=== PATIENT | female | born 1945 | race Caucasian/White ===

== ENCOUNTER → 2016-12-05 | Outpatient (CLI) | payer MEDICARE, OTHER ==
[~2016-12-05] MED LIST: ALBU8.5H2 IH; AMOX-355 PO; ENAL5TAB PO; ESTR2TAB4 PO; LEVO750T6 PO; PRED10TA PO; PRV20T GT; SERT100T8 PO
--- OUTSIDE RECORDS SUMMARY | 2016-12-05 13:00 | XMS REPORT | Continuity of Care Document ---
Author Author [facility] Organization [facility] Address Unknown Phone Unavailable Care Team Providers Care Rehabilitation Teacher Name Role Phone GEORGE OROSCO MD PCP Insurance Providers Payer Name Policy Number Subscriber Name Relationship Wps Medicare [id number] Mahad Gregg 18 Self / Same As Patient Enter Insurance Name [id number] Mahad Gregg 18 Self / Same As Patient Advance Directives Directive Response Recorded Date/Time Advance Directives No 03/31/15 3:21am Health Care Power of Thresher [place] No 03/31/15 3:21am Organ Donor No 03/31/15 3:21am Resuscitation Status Full Code 03/31/15 3:21am Problems Medical Problems Problem Onset Date Status Chest wall pain Unknown Active Acute bronchitis Unknown Active Chest wall pain Unknown Active Medications Medication Dose Route Sig Days/Qty Instructions Order Date Discontinued Date Status Enalapril Maleate 5 Mg PO DAILY 01/02/13 Active Estradiol 2 Mg PO DAILY 01/02/13 Active Pravastatin Sod 20 Mg GT DAILY 01/02/13 Active Prednisone 10 Mg PO DAILY 03/31/15 Active Sertraline Hcl 100 Mg PO 03/31/15 Active Amoxicillin/Clavulanate Potassium 1 Tab PO 03/31/15 Active Levofloxacin 750 Mg PO DAILY 4 Qty 03/31/15 Active Albuterol 1-4 Puff IH RESPIRATORY EVERY FOUR HOURS PRN SHORTNESS OF BREATH 1 Qty 1 PUFFS 03/31/15 Active Social History Social History Problem Response Recorded Date/Time Alcohol Use Occasionally Uses 03/31/2015 3:21am Recreational Drug Use No 03/31/2015 3:21am Recent Foreign Travel No 03/31/2015 3:06am Recent Infectious Disease Exposure No 03/31/2015 3:06am Hospitalization with Isolation Denies 03/31/2015 3:06am Smoking Status Current Everyday Smoker 03/31/2015 3:21am Query Response Start Date Stop Date Smoking Status Current Everyday Smoker Hospital Discharge Instructions No hospital discharge instructions. Plan of Care No plan of care. Functional Status No functional status results. Allergies, Adverse Reactions, Alerts Allergen Type Severity Reaction Status Last Updated No Known Drug Allergies Active 01/06/13 Immunizations Name Given Type Date of Influenza Vaccine 09/08/12 Historical Vital Signs Acute Vital Signs Vital Response Date/Time Temperature (Fahrenheit) 97.0 degrees F (97.6 - 99.5) Temperature (Calculated Celsius) 36.10680 degrees C (36.4 - 37.5) Temperature Source Temporal Pulse Rate (adult) 66 bpm (60 - 90) Respiratory Rate 20 bpm (12 - 24) O2 Sat by Pulse Oximetry 92 % (88 - 100) Blood Pressure 184/98 mm Hg Pain Pain Intensity 8 Height (Feet) 5 feet Height (Inches) 7 inches Height (Calculated Centimeters) 170.911021 cm Weight (Pounds) 168 pounds Weight (Calculated Kilograms) 76.849754 kilograms Calculated BMI 26.31 Results Laboratory Results Test Name Result Units Flags Reference Collection Date/Time Result Date/ Time Comments White Blood Count 5.5 10^3/uL 4.3-11.0 03/31/2015 3:37am 03/31/2015 3: 50am Red Blood Count 4.55 10^6/uL 4.35-5.85 03/31/2015 3:37am 03/31/2015 3: 50am Hemoglobin 12.4 G/DL 11.5-16.0 03/31/2015 3:37am 03/31/2015 3:50am Hematocrit 39 % 35-52 03/31/2015 3:37am 03/31/2015 3:50am Mean Corpuscular Volume 85 FL 80-99 03/31/2015 3:37am 03/31/2015 3: 50am Mean Corpuscular Hemoglobin 27 PG 25-34 03/31/2015 3:37am 03/31/2015 3: 50am Mean Corpuscular Hemoglobin Concent 32 G/DL 32-36 03/31/2015 3:37 3:50am Red Cell Distribution Width 15.1 % H 10.0-14.5 03/31/2015 3:2014 3:50am Platelet Count 275 10^3/uL 130-400 03/31/2015 3:3703/31/2015 3:50am Mean Platelet Volume 11.0 FL H 7.4-10.4 03/31/2015 3:3703/31/2015 3: 50am Neutrophils (%) (Auto) 83 % H 42-75 03/31/2015 3:3703/31/2015 3:50am Lymphocytes (%) (Auto) 10 % L 12-44 03/31/2015 3:03/31/2015 3:50am Monocytes (%) (Auto) 7 % 0-12 03/31/2015 3:03/31/2015 3:50am Eosinophils (%) (Auto) 0 % 0-10 03/31/2015 3:03/31/2015 3:50am Basophils (%) (Auto) 0 % 0-10 03/31/2015 3:03/31/2015 3:50am Neutrophils # (Auto) 4.5 X 10^3 1.8-7.8 03/31/2015 3:03/31/2015 3: 50am Lymphocytes # (Auto) 0.5 X 10^3 L 1.0-4.0 03/31/2015 3:03/31/2015 3: 50am Monocytes # (Auto) 0.4 X 10^3 0.0-1.0 03/31/2015 3:3703/31/2015 3: 50am Eosinophils # (Auto) 0.0 10^3/uL 0.0-0.3 03/31/2015 3:3703/31/2015 3 :50am Basophils # (Auto) 0.0 10^3/uL 0.0-0.1 03/31/2015 3:03/31/2015 3: 50am D-Dimer 0.50 UG/ML H 0.00-0.49 03/31/2015 3:3703/31/2015 4:52am Sodium Level 141 MMOL/L 135-145 03/31/2015 3:3703/31/2015 4:08am Potassium Level 4.3 MMOL/L 3.6-5.0 03/31/2015 3:3703/31/2015 4:08am Chloride Level 109 MMOL/L H 98-107 03/31/2015 3:3703/31/2015 4:08am Carbon Dioxide Level 21 MMOL/L 21-32 03/31/2015 3:3703/31/2015 4: 08am Blood Urea Nitrogen 21 MG/DL H 7-18 03/31/2015 3:3703/31/2015 4:08am Creatinine 0.76 MG/DL 0.60-1.30 03/31/2015 3:3703/31/2015 4:08am BUN/Creatinine Ratio 03/31/2015 3:3703/31/2015 4:08am Estimat Glomerular Filtration Rate > 60 03/31/2015 3:372014 4:08am GFR INTERPRETIVE DATA UNITS FOR ESTIMATED GFR (eGFR): mL/min/1.73 M2 REFERENCE RANGE FOR ESTIMATED GFR (eGFR) eGFR NORMAL eGFR >60 MODERATELY DECREASED eGFR 30-59 SEVERLY DECREASED eGFR 15-29 KIDNEY FAILURE <15 (OR DIALYSIS) Glucose Level 109 MG/DL H 70-105 03/31/2015 3:3703/31/2015 4:08am Calcium Level 9.5 MG/DL 8.5-10.1 03/31/2015 3:3703/31/2015 4:08am Total Bilirubin 0.3 MG/DL 0.1-1.0 03/31/2015 3:3703/31/2015 4:08am Alkaline Phosphatase 80 U/L 40-136 03/31/2015 3:3703/31/2015 4:08am Aspartate Amino Transf (AST/SGOT) 16 U/L 5-34 03/31/2015 3:372014 4:08am Alanine Aminotransferase (ALT/SGPT) 11 U/L 0-55 03/31/2015 3:3703/31 4:08am Total Protein 6.7 G/DL 6.4-8.2 03/31/2015 3:3703/31/2015 4:08am Albumin 3.9 G/DL 3.2-4.5 03/31/2015 3:37am 03/31/2015 4:08am Lipase 24 U/L 8-78 03/31/2015 3:37am 03/31/2015 4:08am C-Reactive Protein High Sensitivity 1.07 MG/DL H 0.00-0.50 03/31/2015 3: 37am 03/31/2015 4:08am Procedures No known history of procedures. Encounters Encounter Location Date/Time Departed Emergency [facility] 03/31/15 3:06am Recent Diagnosis
--- NOTE | 2016-12-06 09:33 | STRESS TEST ---
PROCEDURE PHYSICIAN: MAGDI CANALES EXERCISE ECHOCARDIOGRAM STRESS TEST REPORT DATE OF PROCEDURE: 12/05/2016 REFERRING PHYSICIAN: Dr. Mario. INDICATION: Chest pain. Baseline heart rate is 61, baseline blood pressure: 156/85. Baseline EKG: Sinus rhythm with no ischemic changes. SUMMARY: The patient started exercising with a baseline heart rate, blood pressure and EKG mentioned above. She was able to exercise for a total 7 minutes 15 seconds on standard Martin protocol, achieving maximum heart rate of 140, which is 95% of maximum expected heart rate. With peak exercise level, EKG was showing no ischemic changes. Blood pressure at peak was 218/84. During recovery, heart rate and blood pressure returned to baseline. EKG returned to baseline. Echocardiographic images were acquired and reviewed in the parasternal long axis parasternal short axis, apical 4 chamber and apical 2 chamber views. Review of the images showed normal left ventricular size with normal contractility with no ischemic changes. CONCLUSION: 1. Good exercise tolerance a total 7 minutes 15 seconds on standard Martin protocol. Total of 10.1 METs, achieving 95% of maximum expected heart rate. 2. Severe hypertensive response to exercise, returned to baseline during recovery. 3. Minimal nondiagnostic EKG changes with exercise. Returned to baseline during recovery. 4. Normal echocardiographic images at rest and with peak stress images with no ischemic changes. Job ID: [id number] Dictated Date: 12/05/2016 17:34:19 Continuous Improvement Coordinator Date: 12/06/2016 09:28:34 / ted
--- NOTE | 2016-12-06 09:39 | ECHOCARDIOGRAPHY REPORT ---
PROCEDURE PHYSICIAN: MAGDI CANALES DATE OF PROCEDURE: 12/05/2016 TWO DIMENSIONAL ECHOCARDIOGRAM REPORT PRIMARY PHYSICIAN: OTHER PHYSICIAN: REFERRING PHYSICIAN: Dr. Mario ORDERING PHYSICIAN: INDICATION FOR THE PROCEDURE: Chest pain. MEASUREMENTS DERIVED VALUES LV DIAMETER (LAX) NORMALS NORMALS Diastolic 4.4 (3.6-5.2) Eject. Fract. 60% (60%+/-6%) Systolic (2.3-3.9) Diastolic Vol. % Shortening (0.22-0.42) Systolic Vol. Aortic Root IVS THICKNESS Diastolic 1 (0.6-1.1) LVPW THICKNESS Diastolic 1 (0.6-1.1) LA DIAMETER Systolic 3.8 (2.1-3.7) FINDINGS: 1. Technical quality is good. 2. The left ventricle is normal in size with normal contractility. Systolic function appeared to be normal. Estimated ejection fraction 60%. 3. The left atrium is normal in size. No clot or thrombus were seen within the left atrium. 4. The right atrium and right ventricle are normal in size. No clot or thrombus were seen within the right side. 5. Mitral valve is normal in morphology with mild mitral regurgitation noted by color Doppler flow. No mitral valve prolapse. No mitral valve stenosis. 6. Aortic valve is calcified, not well visualized. There is no significant aortic valve stenosis or regurgitation seen. 7. Tricuspid valve is normal in morphology with mild tricuspid regurgitation noted by color Doppler flow. Doppler across tricuspid valve estimated pulmonary artery pressure of 14+ right atrial pressure. 8. Pulmonic valve is functioning normally. 9. No pericardial effusion. IN CONCLUSION: 1. Normal left ventricular size and systolic function. Estimated ejection fraction 60%. Diastolic dysfunction is suggested by Doppler. 2. Mild mitral and tricuspid regurgitation. 3. Estimated pulmonary artery pressure of 25 mmHg. Job ID: [id number] Dictated Date: 12/05/2016 17:27:55 Mental Telepathist Date: 12/06/2016 09:36:08 / geoff
== END ==
LOC: CARD 12:57
PROVIDERS: ATTEND Internal Medicine Cardiovascular Disease
DX: R07.9 Chest pain, unspecified (principal); E78.5 Hyperlipidemia, unspecified; I08.0 Rheumatic disorders of both mitral and aortic valves; Z72.0 Tobacco use
CPT/HCPCS: 93306; 93351

== ENCOUNTER → 2017-08-27 | Outpatient (CLI) | payer MEDICARE, OTHER ==
--- NOTE | 2017-08-27 15:41 | Diagnostic Imaging Report ---
PROCEDURE: MRI right joint lower extremity without contrast. TECHNIQUE: Multiplanar, multisequence non contrast-enhanced MRI of the right lower extremity was accomplished. INDICATION: Lateral ankle pain. COMPARISONS: None available. FINDINGS: TENDONS: Achilles is normal. 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 Its distal insertion on the base of the fifth metatarsal is normal. The peroneus longus is normal. There is tenosynovitis of the posterior tibialis tendon which remains intact. Flexor hallucis longus and flexor digitorum longus are normal. The anterior tibialis, extensor hallucis longus and extensor digitorum longus tendons are normal where visualized. LIGAMENTS: The distal anterior and posterior tibiofibular ligaments are intact. Anterior talofibular, calcaneofibular and posterior talofibular ligaments are normal. The medial deltoid ligamentous complex is intact. BONES AND CARTILAGE: No osteochondral lesion of the talar dome. There is amorphous bone marrow edema within the lateral and plantar aspect of the talar neck in the dorsal aspect of the calcaneus. There is also mild edema in the proximal aspect of the cuboid. Articular cartilage in the tibiotalar and posterior subtalar joints is preserved. SOFT TISSUES: No joint effusion. Mild synovitis throughout the ankle is noted. 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 No abnormal mass effect on the tarsal tunnel. IMPRESSION: 1. 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 Clinical correlation for hindfoot pain and sensation of instability. 2. Mild edema within the osseous structures surrounding the sinus tarsi is likely reactive in nature. However, this could be due to stress injury, although this is unlikely given the distribution. 3. 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 4. Tenosynovitis of the posterior tibialis posterior to the distal tibia. No tear of the posterior tibialis. Dictated by: Dictated on workstation # [id number]
== END ==
LOC: RAD 10:45
PROVIDERS: ATTEND Internal Medicine
DX: M65.871 Other synovitis and tenosynovitis, right ankle and foot (principal); S96.811A Strain of other specified muscles and tendons at ankle and foot level, right foot, initial encounter; X58.XXXA Exposure to other specified factors, initial encounter; Y99.8 Other external cause status
CPT/HCPCS: 73721

== ENCOUNTER → 2019-02-12 | Outpatient (CLI) | payer MEDICARE, OTHER ==
--- NOTE | 2019-02-12 14:21 | Diagnostic Imaging Report ---
PROCEDURE: US Venous Lower Ext Andriy. TECHNIQUE: Multiple real-time grayscale images were obtained over the lower extremities in various projections, bilaterally. Additional duplex Doppler and color Doppler images were also obtained. INDICATION: Lower extremity edema. EXAMINATIONS: Both grayscale and color Doppler imaging of the deep veins of the lower extremities were performed with waveform analysis. FINDINGS: There is no intraluminal filling defect. Normal continuous flow is seen throughout the deep venous systems of both legs, and there is normal response to augmentation. The deep veins compress normally. IMPRESSION: No ultrasound evidence of deep venous thrombosis in either lower extremity. Dictated by: Dictated on workstation # [id number]
== END ==
LOC: RAD 13:39
PROVIDERS: ATTEND Internal Medicine
DX: G47.33 Obstructive sleep apnea (adult) (pediatric) (principal); R60.0 Localized edema
CPT/HCPCS: 93970

== ENCOUNTER 2019-06-20 13:10 | Emergency (ER) | payer OTHER, MEDICARE ==
[~2019-06-20] VITALS: Ht 170.2 cm; Wt 77.1 kg
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
[2019-06-20] MEDS ORDERED: CYCL10TA9 PO (14:56)
[2019-06-20] MEDS ORDERED: TRAM-42 PO (14:56)
[2019-06-20 15:01] VITALS: BP 125/70
== END 2019-06-20 15:01 | disposition home or self-care (01) ==
LOC: EDUNIT# 13:10 → ER 13:12
DX: S16.1XXA Strain of muscle, fascia and tendon at neck level, initial encounter (principal); J44.9 Chronic obstructive pulmonary disease, unspecified; I10 Essential (primary) hypertension; F32.9 Major depressive disorder, single episode, unspecified; R40.2142 Coma scale, eyes open, spontaneous, at arrival to emergency department; R40.2252 Coma scale, best verbal response, oriented, at arrival to emergency department; R40.2362 Coma scale, best motor response, obeys commands, at arrival to emergency department; Z90.710 Acquired absence of both cervix and uterus; Z90.89 Acquired absence of other organs; Z82.49 Family history of ischemic heart disease and other diseases of the circulatory system; V49.60XA Unspecified car occupant injured in collision with unspecified motor vehicles in traffic accident, initial encounter
CPT/HCPCS: 72125

== ENCOUNTER → 2019-07-01 | Outpatient (CLI) | payer MEDICARE, OTHER ==
[~2019-07-01] MED LIST changes: +CYCL10TA9 PO; +TRAM-42 PO
== END ==
LOC: CARD 13:47
PROVIDERS: ATTEND Internal Medicine Cardiovascular Disease
DX: I08.1 Rheumatic disorders of both mitral and tricuspid valves (principal); I65.29 Occlusion and stenosis of unspecified carotid artery; I10 Essential (primary) hypertension; E78.2 Mixed hyperlipidemia; Z72.0 Tobacco use
CPT/HCPCS: 93306

== ENCOUNTER 2019-12-21 05:45 | Outpatient (CLI) | payer MEDICARE, OTHER ==
[~2019-12-21] VITALS: Ht 170.2 cm; Wt 75.0 kg
[2019-12-21] MEDS ORDERED: ESTR1TAB24 PO (12:00)
[2019-12-21] MEDS ORDERED: LISI-552 PO (12:00)
[2019-12-21] MEDS ORDERED: CARV6.252 PO (12:00)
[2019-12-21] MEDS ORDERED: NITR-65 PO (12:00)
[2019-12-21] MEDS ORDERED: OXYB5TAB3 PO (12:00)
[2019-12-21] MEDS ORDERED: AMLO10TA7 PO (12:00)
[2019-12-21] MEDS ORDERED: ATOR10TA66 PO (12:00)
[2019-12-21] MEDS ORDERED: SERT100T8 PO (12:00)
[2019-12-21] MEDS ORDERED: COLE1TAB PO (12:00)
[2019-12-21] MEDS ORDERED: OMEP40CA27 PO (12:00)
== END 2019-12-21 12:05 | disposition home or self-care (01) ==
LOC: PREOP 05:45
PROVIDERS: ATTEND Specialist
DX: Z01.818 Encounter for other preprocedural examination (principal)

== ENCOUNTER 2019-12-25 07:57 | Day surgery (SDC) | payer MEDICARE, OTHER ==
[~2019-12-25] VITALS: Ht 170.2 cm; Wt 75.0 kg
[~2019-12-25 07:57] MED LIST changes: +AMLO10TA7 PO; +ATOR10TA66 PO; +CARV6.252 PO; +COLE1TAB PO; +ESTR1TAB24 PO; +LISI-552 PO; +NITR-65 PO; +OMEP40CA27 PO; +OXYB-52 PO
[2019-12-25] MEDS ORDERED: MOXIFLOXACIN OPHTH SOLN 5 MG/ML 0.3 ML SYRINGE OP ONE (08:15)
[2019-12-25] MEDS ORDERED: TIMOLOL MALEATE 0.5% 5 ML (TIMOPTIC) BTL OU PRN (08:15)
[2019-12-25] MEDS ORDERED: POVIDONE (BETADINE) OPHTH SOLN 5% 30 ML OP ONE (08:15)
[2019-12-25] MEDS ORDERED: LIDOCAINE PF 1% 2 ML VIAL IR PRN (08:15)
[2019-12-25] MEDS: TETRACAINE 0.5% OPHTH SOLN 4 ML BTL (SINGLE DOSE ONLY) OU PRN ×4 (08:19→08:47)
[2019-12-25] MEDS: PHENYLEPHRINE 10% OPHTH (NEO-SYN) 5 ML BTL OU SCH ×3 (08:30→08:47)
[2019-12-25] MEDS: CYCLOPENTOLATE 1% (CYCLOGYL) 2 ML DROPS OP SCH ×3 (08:30→08:47)
[2019-12-25] MEDS ORDERED: MIDAZOLAM 2 MG/2 ML (VERSED) VIAL ONE (09:22)
--- NOTE | 2019-12-25 09:23 | Ophthalmologist Pre-Op Note ---
Pre-Operative Progress Note H&P Reviewed The H&P was reviewed, patient examined and no changes noted. Date H&P Reviewed: Dec 25, 2019 Time H&P Reviewed: 09:23 Pre-Op Dx Cataract, Left Eye YADIRA TANNER MD Dec 25, 2019 09:23
[2019-12-25] MEDS ORDERED: acetaZOLAMIDE ER 500 MG CAP (DIAMOX SEQUELS) PO ONE (09:30)
--- NOTE | 2019-12-25 09:45 | Ophthalmology Operative Report ---
Cataract removal/placement IOL PREOPERATIVE DIAGNOSIS: Cataract Left Eye POSTOPERATIVE DIAGNOSIS: Cataract Left Eye PROCEDURE: Cataract removal and placement of posterior chamber implant, left eye SURGEON: Tyrell Tanner ANESTHESIA: Topical with sedation COMPLICATIONS: None ESTIMATED BLOOD LOSS: Minimal DESCRIPTION OF PROCEDURE: After proper informed consent was obtained, the patient, a 74 female, was taken to the Operating Room and the left eye was anesthetized with tetracaine. The left eye was then prepped and draped in the usual manner. A wire lid speculum was placed. A paracentesis was made at the left hand position. Preservative free lidocaine was injected into the anterior chamber followed by viscoelastic. A clear corneal incision was made in the temporal position. A capsulorrhexis was preformed and the central nuclear and cortical material were removed. The posterior capsule was polished and an Hermelindo 19.5 AU00T0 was placed into the capsular bag. The residual viscoelastic was aspirated and balanced saline solution was injected into the anterior chamber. Moxifloxacin was injected into the anterior chamber. The wound was checked and found to be water tight. The patient tolerated the procedure well without complications. TYRELL TANNER MD Dec 25, 2019 09:45
[2019-12-25 09:56] VITALS: BP 143/68
== END 2019-12-25 09:55 | disposition home or self-care (01) ==
LOC: SDC 07:57
PROVIDERS: ATTEND Specialist
DX: H25.12 Age-related nuclear cataract, left eye (principal); I10 Essential (primary) hypertension; E78.5 Hyperlipidemia, unspecified; F17.200 Nicotine dependence, unspecified, uncomplicated; M19.90 Unspecified osteoarthritis, unspecified site; E78.00 Pure hypercholesterolemia, unspecified; Z79.899 Other long term (current) drug therapy; Z90.89 Acquired absence of other organs; Z88.1 Allergy status to other antibiotic agents; Z90.710 Acquired absence of both cervix and uterus; Z80.1 Family history of malignant neoplasm of trachea, bronchus and lung

== ENCOUNTER 2020-01-01 07:30 | Day surgery (SDC) | payer MEDICARE, OTHER ==
[~2020-01-01] VITALS: Ht 170.2 cm; Wt 75.0 kg
[2020-01-01 07:43] VITALS: BP 147/83
[2020-01-01] MEDS: TETRACAINE 0.5% OPHTH SOLN 4 ML BTL (SINGLE DOSE ONLY) OU PRN ×4 (07:43→08:08)
[2020-01-01] MEDS ORDERED: LIDOCAINE PF 1% 2 ML VIAL IR PRN (07:45)
[2020-01-01] MEDS ORDERED: TIMOLOL MALEATE 0.5% 5 ML (TIMOPTIC) BTL OU PRN (07:45)
[2020-01-01] MEDS ORDERED: POVIDONE (BETADINE) OPHTH SOLN 5% 30 ML OP ONE (07:45)
[2020-01-01] MEDS: PHENYLEPHRINE 10% OPHTH (NEO-SYN) 5 ML BTL OU SCH ×3 (07:53→08:08)
[2020-01-01] MEDS: CYCLOPENTOLATE 1% (CYCLOGYL) 2 ML DROPS OP SCH ×3 (07:53→08:08)
[2020-01-01] MEDS ORDERED: MIDAZOLAM 2 MG/2 ML (VERSED) VIAL ONE (08:39)
--- NOTE | 2020-01-01 08:58 | Ophthalmology Operative Report ---
Cataract removal/placement IOL PREOPERATIVE DIAGNOSIS: Cataract Right Eye POSTOPERATIVE DIAGNOSIS: Cataract Right Eye PROCEDURE: Cataract removal and placement of posterior chamber implant, right eye SURGEON: Tyrell Tanner ANESTHESIA: Topical with sedation COMPLICATIONS: None ESTIMATED BLOOD LOSS: Minimal DESCRIPTION OF PROCEDURE: After proper informed consent was obtained, the patient, a 74 female, was taken to the Operating Room and the right eye was anesthetized with tetracaine. The right eye was then prepped and draped in the usual manner. A wire lid speculum was placed. A paracentesis was made at the left hand position. Preservative free lidocaine was injected into the anterior chamber followed by viscoelastic. A clear corneal incision was made in the temporal position. A capsulorrhexis was preformed and the central nuclear and cortical material were removed. The posterior capsule was polished and Hermelindo 20.5 AU00T0 IOL was placed into the capsular bag. The residual viscoelastic was aspirated and balanced saline solution was injected into the anterior chamber. The wound was checked and found to be water tight. The patient tolerated the procedure well without complications. TYRELL TANNER MD Jan 01, 2020 08:58
--- NOTE | 2020-01-01 08:58 | Ophthalmologist Pre-Op Note ---
Pre-Operative Progress Note H&P Reviewed The H&P was reviewed, patient examined and no changes noted. Date H&P Reviewed: Jan 01, 2020 Time H&P Reviewed: 08:25 Pre-Op Dx Cataract, Right Eye YADIRA TANNER MD Jan 01, 2020 08:58
[2020-01-01] MEDS ORDERED: acetaZOLAMIDE ER 500 MG CAP (DIAMOX SEQUELS) PO ONE (09:00)
[2020-01-01 09:05] VITALS: BP 139/65
--- NOTE | 2020-01-01 11:34 | Anesthesia-General Post-Op ---
MAC Patient Condition Mental Status/LOC: Same as Preop Cardiovascular: Satisfactory Nausea/Vomiting: Absent Respiratory: Satisfactory Pain: Controlled Complications: Absent Post Op Complications Complications None Follow Up Care/Instructions Patient Instructions None needed. Anesthesiology Discharge Order Discharge Order Patient was seen after the procedure and she was doing well, no complaints, stable vital signs, no apparent adverse anesthesia problems. RADHA DELGADO DO Jan 01, 2020 11:34
== END 2020-01-01 09:05 | disposition home or self-care (01) ==
LOC: SDC 07:30
PROVIDERS: ATTEND Specialist
DX: H25.11 Age-related nuclear cataract, right eye (principal); M19.90 Unspecified osteoarthritis, unspecified site; E78.5 Hyperlipidemia, unspecified; E78.00 Pure hypercholesterolemia, unspecified; I10 Essential (primary) hypertension; Z88.1 Allergy status to other antibiotic agents; Z79.899 Other long term (current) drug therapy; Z90.89 Acquired absence of other organs; Z80.1 Family history of malignant neoplasm of trachea, bronchus and lung

== ENCOUNTER → 2020-03-22 | Outpatient (CLI) | payer MEDICARE ==
--- NOTE | 2020-03-22 12:42 | Diagnostic Imaging Report ---
INDICATION: Routine screening. COMPARISON: 09/07/2014 and 08/31/2013. TECHNIQUE: 2D and 3D bilateral screening mammography was performed with CAD. FINDINGS: Both breasts are heterogeneously dense, limiting the sensitivity of mammography. Scattered benign-appearing calcifications are identified bilaterally. No dominant mass or malignant appearing microcalcifications are seen. The axillae are unremarkable. IMPRESSION: No mammographic features suspicious for malignancy are identified. ACR BI-RADS Category 2: Benign findings. Result letter will be mailed to the patient. Note: At least 10% of breast cancer is not imaged by mammography. Dictated by: Dictated on workstation # [id number]
== END ==
LOC: RAD 09:59
PROVIDERS: ATTEND Internal Medicine
DX: Z12.31 Encounter for screening mammogram for malignant neoplasm of breast (principal)
CPT/HCPCS: 77063; 77067

== ENCOUNTER 2020-06-13 13:45 | Outpatient (RCR) | payer MEDICARE ==
[2020-04-12 14:59] LABS: BASOPHILS % (AUTO) 0 % (0-10); EOSINOPHILS % (AUTO) 1 % (0-10); HEMATOCRIT 33 % (35-52); HEMOGLOBIN 10.8 G/DL (11.5-16.0); LYMPHOCYTES # (AUTO) 0.7 X 10^3 (1.0-4.0); LYMPHOCYTES % (AUTO) 39 % (12-44); MEAN CORPUSCULAR HEMOGLOBIN 27 PG (25-34); MEAN CORPUSCULAR HGB CONC 32 G/DL (32-36); MEAN CORPUSCULAR VOLUME 85 FL (80-99); MONOCYTES # (AUTO) 0.5 X 10^3 (0.0-1.0); MONOCYTES % (AUTO) 27 % (0-12); NEUTROPHILS # (AUTO) 0.6 X 10^3 (1.8-7.8); NEUTROPHILS % (AUTO) 34 % (42-75); PLATELET COUNT 200 10^3/uL (130-400); WHITE BLOOD COUNT 1.8 10^3/uL (4.3-11.0)
[2020-04-20 10:32] LABS: ANISOCYTOSIS SLIGHT; BAND NEUTROPHILS 0 %; BASOPHILS % (MANUAL) 0 %; ELLIPT/OVALOCYTES SLIGHT; EOSINOPHILS % (MANUAL) 0 %; LYMPHOCYTES % (MANUAL) 45 %; MONOCYTES % (MANUAL) 21 %; NEUTROPHILS % (MANUAL) 34 %
[2020-04-25 10:25] LABS: BASOPHILS % (AUTO) 0 % (0-10); EOSINOPHILS % (AUTO) 1 % (0-10); HEMATOCRIT 34 % (35-52); HEMOGLOBIN 10.9 G/DL (11.5-16.0); LYMPHOCYTES # (AUTO) 0.7 X 10^3 (1.0-4.0); LYMPHOCYTES % (AUTO) 37 % (12-44); MEAN CORPUSCULAR HEMOGLOBIN 27 PG (25-34); MEAN CORPUSCULAR HGB CONC 32 G/DL (32-36); MEAN CORPUSCULAR VOLUME 85 FL (80-99); MEAN PLATELET VOLUME 9.9 FL (7.4-10.4); MONOCYTES # (AUTO) 0.6 X 10^3 (0.0-1.0); MONOCYTES % (AUTO) 29 % (0-12); NEUTROPHILS # (AUTO) 0.7 X 10^3 (1.8-7.8); NEUTROPHILS % (AUTO) 34 % (42-75); PLATELET COUNT 221 10^3/uL (130-400)
[2020-04-25 10:47] LABS: ALANINE AMINOTRANSFERASE 9 U/L (0-55); ALBUMIN 3.9 GM/DL (3.2-4.5); ALKALINE PHOSPHATASE 77 U/L (40-136); BILIRUBIN,TOTAL 0.6 MG/DL (0.1-1.0); BUN/CREATININE RATIO 21; CALCIUM 9.4 MG/DL (8.5-10.1); CARBON DIOXIDE 25 MMOL/L (21-32); CHLORIDE 108 MMOL/L (98-107); CREATININE SERUM 0.81 MG/DL (0.60-1.30); GFR ESTIMATED > 60; GLUCOSE 92 MG/DL (70-105); POTASSIUM 4.6 MMOL/L (3.6-5.0); SODIUM 141 MMOL/L (135-145); TOTAL PROTEIN 7.1 GM/DL (6.4-8.2)
[2020-05-23 15:03] LABS: BASOPHILS % (AUTO) 0 % (0-10); EOSINOPHILS % (AUTO) 1 % (0-10); HEMATOCRIT 34 % (35-52); HEMOGLOBIN 10.9 G/DL (11.5-16.0); LYMPHOCYTES # (AUTO) 0.9 X 10^3 (1.0-4.0); LYMPHOCYTES % (AUTO) 43 % (12-44); MEAN CORPUSCULAR HEMOGLOBIN 27 PG (25-34); MEAN CORPUSCULAR HGB CONC 32 G/DL (32-36); MEAN CORPUSCULAR VOLUME 84 FL (80-99); MEAN PLATELET VOLUME 10.2 FL (7.4-10.4); MONOCYTES # (AUTO) 0.6 X 10^3 (0.0-1.0); MONOCYTES % (AUTO) 27 % (0-12); NEUTROPHILS # (AUTO) 0.6 X 10^3 (1.8-7.8); NEUTROPHILS % (AUTO) 29 % (42-75); PLATELET COUNT 232 10^3/uL (130-400); WHITE BLOOD COUNT 2.2 10^3/uL (4.3-11.0)
[2020-05-23 15:36] LABS: ALANINE AMINOTRANSFERASE 11 U/L (0-55); ALBUMIN 3.9 GM/DL (3.2-4.5); ALKALINE PHOSPHATASE 89 U/L (40-136); BILIRUBIN,TOTAL 0.5 MG/DL (0.1-1.0); BUN/CREATININE RATIO 22; CALCIUM 9.4 MG/DL (8.5-10.1); CARBON DIOXIDE 25 MMOL/L (21-32); CHLORIDE 107 MMOL/L (98-107); CREATININE SERUM 0.85 MG/DL (0.60-1.30); GFR ESTIMATED > 60; GLUCOSE 93 MG/DL (70-105); POTASSIUM 3.9 MMOL/L (3.6-5.0); SODIUM 140 MMOL/L (135-145); TOTAL PROTEIN 7.4 GM/DL (6.4-8.2)
[2020-06-01 11:02] LABS: ABSOLUTE RETIC # 30 10e9/L (24-90); BASOPHILS % (AUTO) 0 % (0-10); EOSINOPHILS % (AUTO) 1 % (0-10); HEMATOCRIT 32 % (35-52); HEMOGLOBIN 10.5 G/DL (11.5-16.0); LYMPHOCYTES # (AUTO) 0.8 X 10^3 (1.0-4.0); LYMPHOCYTES % (AUTO) 35 % (12-44); MEAN CORPUSCULAR HEMOGLOBIN 27 PG (25-34); MEAN CORPUSCULAR HGB CONC 33 G/DL (32-36); MEAN CORPUSCULAR VOLUME 84 FL (80-99); MEAN PLATELET VOLUME 10.1 FL (7.4-10.4); MONOCYTES # (AUTO) 0.6 X 10^3 (0.0-1.0); MONOCYTES % (AUTO) 26 % (0-12); NEUTROPHILS # (AUTO) 0.9 X 10^3 (1.8-7.8); NEUTROPHILS % (AUTO) 38 % (42-75); PLATELET COUNT 240 10^3/uL (130-400); RETICULOCYTE % 0.77 % (0.50-2.40); WHITE BLOOD COUNT 2.3 10^3/uL (4.3-11.0)
[2020-06-01 11:27] LABS: ANISOCYTOSIS SLIGHT; EOSINOPHILS % (MANUAL) 1 %; LYMPHOCYTES % (MANUAL) 37 %; MONOCYTES % (MANUAL) 21 %; NEUTROPHILS % (MANUAL) 41 %; POIKILOCYTOSIS SLIGHT; SPHEROCYTES SLIGHT
== END 2020-07-11 | disposition home or self-care (01) ==
LOC: ONC 13:45
PROVIDERS: ATTEND Internal Medicine Hematology & Oncology
DX: D72.819 Decreased white blood cell count, unspecified (principal)
CPT/HCPCS: 38221; 80053; 82607; 82728; 82746; 83540; 85007; 85025; 85027; 85045; 88184; 88185; 88305; 88311; 88313; 88341; 88342; 99213; 99214

== ENCOUNTER 2020-09-12 09:59 | Outpatient (RCR) | payer MEDICARE ==
[~2020-09-12 09:59] MED LIST changes: +AMLO-251 PO; -AMLO10TA7 PO
[2020-09-12 10:12] LABS: BASOPHILS % (AUTO) 0 % (0-10); EOSINOPHILS % (AUTO) 0 % (0-10); HEMATOCRIT 35 % (35-52); LYMPHOCYTES % (AUTO) 41 % (12-44); MEAN CORPUSCULAR HEMOGLOBIN 27 pg (25-34); MEAN CORPUSCULAR HGB CONC 31 g/dL (32-36); MEAN CORPUSCULAR VOLUME 88 fL (80-99); MEAN PLATELET VOLUME 9.8 fL (9.0-12.2); MONOCYTES # (AUTO) 0.7 10^3/uL (0.0-1.0); MONOCYTES % (AUTO) 28 % (0-12); NEUTROPHILS # (AUTO) 0.7 10^3/uL (1.8-7.8); NEUTROPHILS % (AUTO) 30 % (42-75); PLATELET COUNT 211 10^3/uL (130-400); WHITE BLOOD COUNT 2.3 10^3/uL (4.3-11.0)
[2020-09-12 10:34] LABS: ALBUMIN 4.2 GM/DL (3.2-4.5); BILIRUBIN,TOTAL 0.4 MG/DL (0.1-1.0); CALCIUM 9.5 MG/DL (8.5-10.1); CREATININE SERUM 1.05 MG/DL (0.60-1.30); POTASSIUM 4.1 MMOL/L (3.6-5.0); TOTAL PROTEIN 7.5 GM/DL (6.4-8.2)
== END 2020-12-11 | disposition home or self-care (01) ==
LOC: ONC 09:59
PROVIDERS: ATTEND Internal Medicine Hematology & Oncology
DX: D64.9 Anemia, unspecified (principal); D70.9 Neutropenia, unspecified; D72.810 Lymphocytopenia; I10 Essential (primary) hypertension; E78.2 Mixed hyperlipidemia; Z87.39 Personal history of other diseases of the musculoskeletal system and connective tissue
CPT/HCPCS: 80053; 83615; 85025; G0463; 99213

== ENCOUNTER 2021-01-27 11:17 | Outpatient (CLI) | payer MEDICARE ==
[~2021-01-27] VITALS: Ht 170.2 cm; Wt 68.2 kg
[~2021-01-27 11:17] MED LIST changes: -LISI-552 PO; +LISI20TA26 PO; +SERT-414 PO
[2021-01-27] MEDS ORDERED: LEFL10TA16 PO (15:04)
[2021-01-27] MEDS ORDERED: PRED5TAB PO (15:04)
== END 2021-01-27 15:26 | disposition home or self-care (01) ==
LOC: PREOP 11:17
PROVIDERS: ATTEND Obstetrics & Gynecology
DX: Z01.818 Encounter for other preprocedural examination (principal)

== ENCOUNTER 2021-01-31 09:21 | Day surgery (SDC) | payer MEDICARE ==
[~2021-01-31] VITALS: Ht 170 cm; Wt 68.2 kg
[2021-01-31] VITALS (13 sets, daily range): BP systolic 108–132; BP diastolic 55–78
[~2021-01-31 09:21] MED LIST changes: +LEFL10TA16 PO; +PRED5TAB PO
[2021-01-31] MEDS ORDERED: ESTRADIOL VAGINAL CREAM 42.5 GM (ESTRACE) VG ONE (09:34)
[2021-01-31] MEDS ORDERED: NS (IVPB) 100 ML ONE (09:34)
[2021-01-31] MEDS ORDERED: ceFAZolin 2 GM IV Premixed 50 ML IV ONE (09:45)
[2021-01-31] MEDS ORDERED: fentaNYL INJ 100 MCG/2 ML AMP ONE (09:45)
[2021-01-31] MEDS ORDERED: proPOfol 200 MG/20 ML (DIPRIVAN) VIAL IV ONE ×2 (09:45→09:49)
[2021-01-31] MEDS ORDERED: MIDAZOLAM 2 MG/2 ML (VERSED) VIAL ONE (09:45)
[2021-01-31] MEDS ORDERED: ONDANSETRON 4 MG/2 ML (SDV) Z0FRAN ONE (09:49)
[2021-01-31] MEDS ORDERED: LIDOCAINE PF 2% 5 ML (XYLOCAINE) VIAL ONE (09:49)
[2021-01-31] MEDS ORDERED: SEVOFLURANE (ULTANE) 15 ML INHAL SOLN ONE ×4 (09:50→11:36)
[2021-01-31] MEDS ORDERED: VASOPRESSIN INJECTION 20 UNIT/ML VIAL ONE (09:57)
[2021-01-31] MEDS: LACTATED RINGERS 1,000 ML IV PRN ×2 (10:00→11:30)
[2021-01-31] MEDS ORDERED: ceFAZolin 2 GM IV Premixed 50 ML ONE (10:04)
--- NOTE | 2021-01-31 10:15 | Progress Note-Pre Operative ---
Pre-Operative Progress Note H&P Reviewed The H&P was reviewed, patient examined and no changes noted. Date Seen by Provider: Jan 31, 2021 Time Seen by Provider: 10:00 Date H&P Reviewed: Jan 31, 2021 Time H&P Reviewed: 10:00 Pre-Operative Diagnosis: CYSTOCELE/RECTOCELE YAZMIN REDDY DO Jan 31, 2021 10:15
[2021-01-31] MEDS ORDERED: morphine INJ 10 MG/ML 1ML (SYR OR VIAL) IVP ONE (10:30)
[2021-01-31] MEDS ORDERED: fentaNYL INJ 100 MCG/2 ML AMP IVP ONE (10:30)
[2021-01-31] MEDS ORDERED: ONDANSETRON 4 MG/2 ML (SDV) Z0FRAN IVP PRN (10:30)
[2021-01-31] MEDS ORDERED: MEPERIDINE (DEMEROL) INJ 50 MG/ML IVP ONE (10:30)
[2021-01-31] MEDS ORDERED: ROCURONIUM 10 MG/ML 5 ML SYRINGE IV ONE (11:12)
[2021-01-31] MEDS ORDERED: morphine INJ 10 MG/ML 1ML (SYR OR VIAL) ONE (11:29)
[2021-01-31] MEDS ORDERED: PHENYLEPHRINE 100 MCG/ML 10 ML (ANESTHESIA) SYR ONE (11:34)
[2021-01-31] MEDS ORDERED: morphine INJ 4 MG/ML 1 ML (VIAL/SYRINGE) IVP PRN (11:45)
[2021-01-31] MEDS ORDERED: BENZOCAINE/MENTHOL (DERMOPLAST) 56 ML CAN TP PRN (11:45)
[2021-01-31] MEDS ORDERED: PATIENT MAY USE OWN MEDS, ALL MC SCH (11:45)
[2021-01-31] MEDS ORDERED: KETOROLAC 15 MG/ML VIAL IVP ONE (11:45)
--- NOTE | 2021-01-31 11:45 | Operative Report ---
Operative Report Date of Procedure/Surgery Jan 31, 2021 Surgeon (s) YAZMIN REDDY DO Detail Assembler (s): NA Post-Operative Diagnosis same Procedure Performed anterior posterior repair with perineorrhaphy Description of Procedure Anesthesia Type: General Estimated blood loss (mL): minimal Specimen(s) collected/removed none Packing: Vaginal and estrace cream Description of the Procedure With informed consent, the patient was taken to the operating room where general anesthesia was found to be adequate. She was prepped and draped in the usual sterile fashion in the dorsolithotomy position. A Hutton catheter had been placed in the bladder. There was a 1-2 + cystocele with good support of the urethra. She had a 3-4+ rectocele and a perineal defect. The lone star retractor was now placed. The vaginal epithelium was injected with dilute vasopressin. The anterior vagina was grasped with an Allis clamp and incised in the midline posterior to the urethra. The vagina epithelium was dissected off of the pubovesical fascia laterally. There was a midline defect that was reduced with interrupted figure of 8 stitches of 2-) vicryl. I then closed the vaginal epithelium with interrupted 2-0 Vicryl Attention was now turned to the posterior vagina. The perineum was grasped on either side of the perineum with Abby clamps. I then made a midline incision in the perineum and the vaginal epithelium was undermined with holm scissors. She had a very scarred perineum that required excessive dissection. Once this was dissected and the vaginal epithelium was dissected off posteriorly to the lateral border. I did a rectovaginal exam to differentiate the rectocele from enterocele. What appeared to be enterocele and rectocele was simply a large rectocele. I dissected to the hymenal ring and then made a transverse incision at the perineum removing the perineum and skin in a pyramidal fashion. I then repaired the rectocele defect with interrupted 2-0 vicryl from the vaginal cuff to the hymenal ring, plicating the levator ani muscles. I then trimmed the excessive vaginal tissue. I now repaired the perineal defect with interrupted 2-0 vicryl reapproximating the perineal body and then closing the skin. There was good hemostasis. A vaginal pack with estrace cream was placed. The patient was then awakened and taken to recovery in a stable fashion. Sponge, lap, needle and instrument counts were correct times two. Findings of the Procedure 3+ rectocele with shortened perineum 1-2 + cystocele well supported urethra. previous hysterectomy Allergies and Home Medications Allergies Coded Allergies: levofloxacin (Verified Allergy, Unknown, hands swelled, 12/21/19) Home Medications Amlodipine Besylate 10 Mg Tablet, 10 MG PO DAILY, (Reported) Carvedilol 6.25 Mg Tablet, 6.25 MG PO BID, (Reported) Leflunomide 10 Mg Tablet, 20 MG PO DAILY, (Reported) Lisinopril 20 Mg Tablet, 20 MG PO DAILY, (Reported) Oxybutynin Chloride 5 Mg Tab.er.24, 5 MG PO BID, (Reported) Prednisone 5 Mg Tablet, 5 MG PO DAILY, (Reported) Sertraline HCl 100 Mg Tablet, 100 MG PO DAILY, (Reported) Patient Home Medication List Home Medication List Reviewed: Yes YAZMIN REDDY DO Jan 31, 2021 11:45
[2021-01-31] MEDS ORDERED: IBUPROFEN 600 MG (MOTRIN) TAB PO SCH (12:00)
--- NOTE | 2021-01-31 12:34 | Anesthesia-General Post-Op ---
General Patient Condition Mental Status/LOC: Same as Preop Cardiovascular: Satisfactory Nausea/Vomiting: Absent Respiratory: Satisfactory Pain: Controlled Complications: Absent Post Op Complications Complications None Follow Up Care/Instructions Patient Instructions None needed. Anesthesia/Patient Condition Patient Condition Patient is doing well, no complaints, stable vital signs, no apparent adverse anesthesia problems. No complications reported per nursing. SHAYY BARRY CRNA Jan 31, 2021 12:34
[2021-01-31] MEDS ORDERED: KETOROLAC 15 MG/ML VIAL ONE (13:21)
[2021-01-31] MEDS: LACTATED RINGERS 1,000 ML IV SCH ×3 (13:49→23:19)
[2021-01-31] MEDS: ACETAMINOPHEN 500 MG TAB (TYLENOL) PO SCH (16:23)
[2021-01-31] MEDS: IBUPROFEN 600 MG (MOTRIN) TAB PO SCH (20:54)
[2021-01-31] MEDS ORDERED: OXYBUTYNIN ER 5 MG (DITROPAN XL) TAB NON-FORMULARY PO SCH (21:00)
[2021-01-31] MEDS: LEFLUNOMIDE 20 MG PO SCH (21:00)
[2021-01-31] MEDS ORDERED: CARVEDILOL 6.25 MG (COREG) TAB PO SCH (21:00)
[2021-02-01] MEDS: predniSONE 5 MG TAB PO SCH ×2 (00:20→08:58)
[2021-02-01 03:31] VITALS: BP 133/63
[2021-02-01] MEDS: ACETAMINOPHEN 500 MG TAB (TYLENOL) PO SCH ×2 (03:31→06:16)
[2021-02-01] MEDS: IBUPROFEN 600 MG (MOTRIN) TAB PO SCH (03:31)
[2021-02-01] MEDS: LACTATED RINGERS 1,000 ML IV SCH (04:49)
[2021-02-01] MEDS ORDERED: MILK OF MAGNESIA 400 MG/5 ML 30 ML UDC PO NR (05:00)
[2021-02-01] MEDS ORDERED: predniSONE 5 MG TAB PO SCH (07:00)
[2021-02-01 08:25] VITALS: BP 150/68
[2021-02-01] MEDS ORDERED: IBUP-844 PO (08:26)
[2021-02-01] MEDS ORDERED: DCS100C PO (08:26)
[2021-02-01] MEDS ORDERED: ACET-93 PO (08:26)
[2021-02-01] MEDS ORDERED: BENZ78AE5 TP (08:26)
[2021-02-01] MEDS ORDERED: MAGN400O7 PO (08:26)
[2021-02-01] MEDS ORDERED: OXC5T PO (08:27)
--- NOTE | 2021-02-01 08:29 | Discharge Inst-Women's Service ---
Discharge Inst-Women's Serv Depart Medication/Instructions New, Converted or Re-Newed RX: Transmitted to Pharmacy Instructions nothing in vagina until follow up expect some spotting or vaginal bleeding for up to 10 days Final Diagnosis cystocele/rectocele Problems Reviewed?: Yes Consults/Follow Up Additional Follow Up: Yes (1-2 weeks) Activity Activity: Activity as Tolerated Driving Instructions: No Driving for 24 Hours NO SMOKING: NO SMOKING Nothing Inside Vagina: No Douching, No [place], No Tampons Diet Discharge Diet: No Restrictions Symptoms to Report to : Bleeding Excessive, Pain Increased, Constipation(Persistant), Fever Over 101 Degrees F, Urination Difficulty, Vaginal Bleeding Increase, Cramps in Feet or Legs, Vaginal Discharge Foul sitz baths are ok For Any Problems or Questions: Contact Your Physician Skin/Wound Care Infection Signs and Symptoms: Increased Redness, Foul Odor of Wound, Increased Drainage, Skin Itchy or Has a Rash, Increased Swelling, Temperature Above 101 F YAZMIN REDDY DO Feb 01, 2021 08:29
[2021-02-01] MEDS: LEFLUNOMIDE 20 MG PO SCH (08:57)
[2021-02-01] MEDS ORDERED: amLODIPine 10 MG (NORVASC) TAB PO SCH (09:00)
[2021-02-01] MEDS ORDERED: DOCUSATE SODIUM 100 MG (COLACE) CAP PO SCH (09:00)
[2021-02-01] MEDS ORDERED: lisINopril 20 MG (PRINIVIL) TABLET PO SCH (09:00)
[2021-02-01] MEDS ORDERED: LEFLUNOMIDE 20 MG PO SCH (09:00)
[2021-02-01] MEDS ORDERED: LEFLUNOMIDE 10 MG PO SCH (09:00)
== END 2021-02-01 09:50 | disposition home or self-care (01) ==
LOC: SDC 09:21 → WS 12:45 → SDC 02-01 09:50
PROVIDERS: ATTEND Obstetrics & Gynecology
DX: N81.2 Incomplete uterovaginal prolapse (principal); I10 Essential (primary) hypertension; I25.10 Atherosclerotic heart disease of native coronary artery without angina pectoris; E78.2 Mixed hyperlipidemia; F32.9 Major depressive disorder, single episode, unspecified; N39.0 Urinary tract infection, site not specified; F17.210 Nicotine dependence, cigarettes, uncomplicated; Z79.899 Other long term (current) drug therapy; Z79.52 Long term (current) use of systemic steroids; Z88.1 Allergy status to other antibiotic agents; Z85.828 Personal history of other malignant neoplasm of skin; Z90.710 Acquired absence of both cervix and uterus
CPT/HCPCS: 87081; 94664

== ENCOUNTER 2021-03-06 11:10 | Day surgery (SDC) | payer MEDICARE ==
[~2021-03-06 11:10] MED LIST changes: +ACET-93 PO; +BENZ78AE5 TP; +DCS100C PO; +IBUP-844 PO; +MAGN400O7 PO; +OXC5T PO; +morphine INJ 4 MG/ML 1 ML (VIAL/SYRINGE) IV PRN
[2021-03-06] MEDS: ONDANSETRON 4 MG (ZOFRAN) ORAL DISSOLVE TAB PO PRN (12:09)
[2021-03-06] MEDS: ceFAZolin 2 GM IV Premixed 50 ML IV SCH ×2 (12:11→18:34)
[2021-03-06] MEDS: KETOROLAC 15 MG/ML VIAL IV SCH ×2 (12:12→18:34)
[2021-03-06] MEDS: NS IV 1000 ML 1,000 ML IV SCH ×2 (12:12→22:16)
[2021-03-06 12:30] VITALS: BP 147/66
[2021-03-06] MEDS ORDERED: BENZOCAINE/MENTHOL (DERMOPLAST) 56 ML CAN TP PRN (13:30)
[2021-03-06] MEDS ORDERED: WITCH HAZEL(TUCKS) 40 EA JAR TOP PRN (13:30)
[2021-03-06] MEDS ORDERED: LIDOCAINE TOPICAL 4% 50 ML BTL TP PRN (13:30)
[2021-03-06] MEDS ORDERED: LIDOCAINE/EPI 2% 1:100,00 (XYLOCAINE) 20 ML VIAL INJ ONE (13:30)
[2021-03-06] MEDS: metroNIDAZOLE 500MG/100ML IVPB 100 ML IV SCH ×2 (13:51→22:12)
[2021-03-06] MEDS: ACETAMINOPHEN 500 MG TAB (TYLENOL) PO SCH ×2 (13:51→22:12)
[2021-03-06 19:20] VITALS: BP 133/63
[2021-03-06] MEDS ORDERED: LIDOCAINE/EPI 2% 1:200,00 (XYLOCAINE) 20 ML VIAL ONE (21:53)
[2021-03-06] MEDS ORDERED: ZOLPIDEM 5 MG (AMBIEN) TAB ONE (22:26)
[2021-03-06] MEDS ORDERED: ZOLPIDEM 5 MG (AMBIEN) TAB PO PRN (22:30)
[2021-03-06] MEDS ORDERED: LIDOCAINE TOPICAL 4% 50 ML BTL ONE (22:44)
[2021-03-07] VITALS (11 sets, daily range): BP systolic 139–172; BP diastolic 68–89
[2021-03-07] MEDS: KETOROLAC 15 MG/ML VIAL IV SCH ×5 (00:48→23:57)
[2021-03-07] MEDS: ceFAZolin 2 GM IV Premixed 50 ML IV SCH ×3 (03:13→19:37)
[2021-03-07] MEDS: metroNIDAZOLE 500MG/100ML IVPB 100 ML IV SCH ×3 (06:25→22:25)
[2021-03-07] MEDS: ACETAMINOPHEN 500 MG TAB (TYLENOL) PO SCH ×3 (06:26→19:37)
[2021-03-07] MEDS: ONDANSETRON 4 MG (ZOFRAN) ORAL DISSOLVE TAB PO PRN ×2 (07:53→16:25)
--- NOTE | 2021-03-07 08:24 | Progress Note ---
Subjective Date Seen by a Provider: March 07, 2021 Time Seen by a Provider: 08:00 Subjective/Events-last exam Patient had improvement in pain with oral pain meds. She is nauseous today. She states she is ready to go to surgery. Have discussed EUA with I&D of the perineum and then revision of the incision. Will do this today under general. Risk is bleeding, infection, further breakdown of the incision. Review of Systems Gastrointestinal: Nausea Objective Exam Vital Signs Date Time Temp Pulse Resp B/P (MAP) Pulse Ox O2 Delivery O2 Flow Rate FiO2 03/07/21 07:55 36.3 75 20 155/72 (99) 94 Room Air 03/07/21 00:48 36.6 72 18 145/68 (93) 96 Room Air 03/06/21 19:20 36.3 67 18 133/63 (86) 93 Room Air 03/06/21 12:30 36.5 77 18 147/66 (93) 94 Room Air I & O 03/07/21 07:00 Intake Total 1700 ml Output Total 1350 ml Balance 350 ml Capillary Refill : General Appearance: No Apparent Distress Respiratory: Chest Non Tender, Lungs Clear, Normal Breath Sounds Cardiovascular: Regular Rate, Rhythm Other comments declined exam to the OR Assessment/Plan Assessment/Plan Assess & Plan/Chief Complaint 1. separation of the perineal wound plan - will take to the OR today for EUA, incision and drainage and then revision of the wound Risks as above Consents will be signed. Will use prophylactic antibiotics (she is on Ancef and flagyl)\ SHAKAs YAZMIN REDDY DO March 07, 2021 08:24
[2021-03-07] MEDS ORDERED: ONDANSETRON 4 MG/2 ML (SDV) Z0FRAN IVP ONE (08:30)
[2021-03-07] MEDS: NS IV 1000 ML 1,000 ML IV SCH ×2 (08:39→17:50)
[2021-03-07] MEDS ORDERED: NS (IVPB) 0 ML ONE (13:20)
[2021-03-07] MEDS ORDERED: LIDOCAINE/EPI 1%-1:100,000 (XYLOCAINE) 20ML ONE (13:20)
[2021-03-07] MEDS ORDERED: VASOPRESSIN INJECTION 20 UNIT/ML VIAL ONE (13:20)
[2021-03-07] MEDS ORDERED: SEVOFLURANE (ULTANE) 15 ML INHAL SOLN ONE (13:24)
[2021-03-07] MEDS ORDERED: ONDANSETRON 4 MG/2 ML (SDV) Z0FRAN ONE (13:24)
[2021-03-07] MEDS ORDERED: LIDOCAINE PF 2% 5 ML (XYLOCAINE) VIAL ONE (13:24)
[2021-03-07] MEDS ORDERED: proPOfol 200 MG/20 ML (DIPRIVAN) VIAL IV ONE (13:24)
[2021-03-07] MEDS ORDERED: fentaNYL INJ 100 MCG/2 ML AMP ONE ×2 (13:24→15:11)
[2021-03-07] MEDS ORDERED: BUPIVACAINE 0.25% 30 ML (SENSORCAINE) VIAL ONE (14:16)
[2021-03-07] MEDS ORDERED: metroNIDAZOLE 500MG/100ML IVPB 100 ML ONE (14:47)
--- NOTE | 2021-03-07 15:10 | Operative Report ---
Operative Report Date of Procedure/Surgery March 07, 2021 Surgeon (s) YAZMIN REDDY DO Vendor Manager (s): Jordan Regan, MS III Post-Operative Diagnosis Same Procedure Performed EUA, i&D of perineal laceration, revision of perineal repair Description of Procedure Anesthesia Type: General Estimated blood loss (mL): 25 Specimen(s) collected/removed perineal tissue/wound Description of the Procedure With informed consent the patient was taken to the operating room where general anesthesia was found to be adequate. She was prepped and draped in the usual sterile fashion in the dorsolithotomy position. A Hutton was placed in the bladder. An exam was done revealing that the perineum had disrupted and there was a shallow ulcer on the right perineum that was in the locatino of the previously felt marble sized hematoma. The base of both areas were clean with granulation tissue at the bases. a culture was taken of the lesin on the perineum and sent for pathology. there ws no purulence. I did a rectal exam and there were no lesions to suspect a perirectal abscess or any breech into the rectal mucosa. At this point I opted to revise the perineum and the lesion. I changed my glov es. Then I initially made an ovoid incision around the lesion on the perineum. I then excised the entire lesion. It was very shallow. I then excised the tissue at the base of the perineal lesion with a scalpel until the granulation tissue was gone and there was bleeding tissue underneath this. The area was then copiously irrigated. Due to the suspicion that the sutures may have caused the breakdown, I used different sutures for the repair. I was able to then repair theperineal wound with interrupted monocryl sutures. Then I reapproximated the perineum. This was only superficial and not into muscle. I used monocryl for some deep interrupted sutures similar to a 1st degree perineal laceration. I then used interrupted monocryl on the skin to reapproximate the skin. The resulted in a good reapproximation of the perineum and the wound on the right. There was minimal bleeding. The patient was awakened and taken to recovery in stable condition. Sponge, lap needle and instrument counts were correct times two. We discussed the autoimmune status and she has not been taking her DMARD as she thought it was making her fatigued. Findings of the Procedure separation of the perineum about 2 cm and 2 cm deep. No bleeding The lesion on the right side of the perineum is now approximately 5 mm wide and irregular edges. It appears to be ulcerated (rather than the bump that was felt in the office). The lump is no longer present but the wound is shallow. Intravaginally, the sutures are healed and the tissue appears normal Allergies and Home Medications Allergies Coded Allergies: levofloxacin (Verified Allergy, Unknown, hands swelled, 03/16/21) Home Medications Acetaminophen 500 Mg Tablet, 1,000 MG PO Q8H PRN for PAIN-MILD (1-4), (Reported) Amlodipine Besylate 10 Mg Tablet, 10 MG PO HS, (Reported) Carvedilol 6.25 Mg Tablet, 6.25 MG PO BID, (Reported) Cefdinir 300 Mg Capsule, 300 MG PO BID Prescribed by: HENOK MORRISON on 03/20/21 0948 Cholecalciferol (Vitamin D3) 25 Mcg Tablet, 25 MCG PO DAILY, (Reported) Docusate Sodium 100 Mg Capsule, 100 MG PO BID PRN for CONSTIPATION-1ST LINE, (Reported) Ibuprofen 600 Mg Tablet, 600 MG PO QID PRN for PAIN-MILD (1-4), (Reported) Lisinopril 20 Mg Tablet, 20 MG PO HS, (Reported) Sertraline HCl 100 Mg Tablet, 100 MG PO HS, (Reported) Zinc 50 Mg Tablet, 50 MG PO DAILY, (Reported) Patient Home Medication List Home Medication List Reviewed: Yes YAZMIN REDYD DO March 07, 2021 15:10
--- NOTE | 2021-03-07 15:22 | Anesthesia-General Post-Op ---
General Patient Condition Mental Status/LOC: Same as Preop Cardiovascular: Satisfactory Nausea/Vomiting: Absent Respiratory: Satisfactory Pain: Controlled Complications: Absent Post Op Complications Complications None Follow Up Care/Instructions Patient Instructions None needed. Anesthesia/Patient Condition Patient Condition Patient is doing well, no complaints, stable vital signs, no apparent adverse anesthesia problems. No complications reported per nursing. SHAYY BARRY CRNA March 07, 2021 15:22
[2021-03-07] MEDS ORDERED: ONDANSETRON 4 MG/2 ML (SDV) Z0FRAN IVP PRN (15:30)
[2021-03-07] MEDS ORDERED: fentaNYL INJ 100 MCG/2 ML AMP IVP ONE (15:30)
[2021-03-07] MEDS ORDERED: morphine INJ 10 MG/ML 1ML (SYR OR VIAL) IVP ONE (15:30)
[2021-03-07] MEDS ORDERED: MEPERIDINE (DEMEROL) INJ 50 MG/ML IVP ONE (15:30)
[2021-03-07] MEDS: DOCUSATE SODIUM 100 MG (COLACE) CAP PO SCH (22:26)
[2021-03-08] MEDS: ceFAZolin 2 GM IV Premixed 50 ML IV SCH (03:22)
[2021-03-08] MEDS: ACETAMINOPHEN 500 MG TAB (TYLENOL) PO SCH (03:23)
[2021-03-08] MEDS: metroNIDAZOLE 500MG/100ML IVPB 100 ML IV SCH (06:09)
[2021-03-08] MEDS: KETOROLAC 15 MG/ML VIAL IV SCH (06:09)
[2021-03-08 06:10] VITALS: BP 164/67
--- NOTE | 2021-03-08 08:36 | Anesthesia-General Post-Op ---
General Patient Condition Mental Status/LOC: Same as Preop Cardiovascular: Satisfactory Nausea/Vomiting: Absent Respiratory: Satisfactory Pain: Controlled Complications: Absent Post Op Complications Complications None Follow Up Care/Instructions Patient Instructions None needed. Anesthesia/Patient Condition Patient Condition Patient is doing well, no complaints, stable vital signs, no apparent adverse anesthesia problems. No complications reported per nursing. HEMALATHA MOELLER CRNA March 08, 2021 08:36
--- NOTE | 2021-03-08 08:37 | Progress Note ---
Standard Progress Note Progress Notes/Assess & Plan Date Seen by a Provider: March 08, 2021 Time Seen by a Provider: 08:35 Progress/Assessment & Plan states she feels well. no pain. Has not yet voided. Once voided will dc home 03/07/21 03/08/21 23:57 06:10 Temp 36.0 36.4 Pulse 65 67 Resp 20 20 B/P (MAP) 139/68 (91) 164/67 (99) Pulse Ox 93 95 O2 Delivery Room Air Room Air 03/08/21 00:00 Intake Total 600 ml Output Total 1475 ml Balance -875 ml YAZMIN REDDY DO March 08, 2021 08:37
[2021-03-08] MEDS ORDERED: OXC5T PO (08:40)
[2021-03-08] MEDS ORDERED: IBUP-844 PO (08:40)
[2021-03-08] MEDS ORDERED: ACET-93 PO (08:40)
[2021-03-08] MEDS ORDERED: DCS100C PO (08:40)
--- NOTE | 2021-03-08 08:41 | Discharge Inst-Women's Service ---
Discharge Inst-Women's Serv Depart Medication/Instructions New, Converted or Re-Newed RX: RX on Chart Final Diagnosis breakdown of perineal wound Problems Reviewed?: Yes Consults/Follow Up Additional Follow Up: Yes (1 week) Activity Activity: Activity as Tolerated Driving Instructions: No Driving for 24 Hours NO SMOKING: NO SMOKING Nothing Inside Vagina: No Douching, No [place], No Tampons Diet Discharge Diet: No Restrictions Symptoms to Report to : Bleeding Excessive, Pain Increased, Fever Over 101 Degrees F, Vaginal Bleeding Increase, Cramps in Feet or Legs, Vaginal Discharge Foul For Any Problems or Questions: Contact Your Physician Skin/Wound Care Bathing Instructions: YAZMIN Johnson DO March 08, 2021 08:41
[2021-03-08 09:30] VITALS: BP 151/69
[2021-03-08] MEDS: DOCUSATE SODIUM 100 MG (COLACE) CAP PO SCH (09:52)
[2021-03-08] MEDS: ONDANSETRON 4 MG (ZOFRAN) ORAL DISSOLVE TAB PO PRN (09:53)
[2021-03-08 11:20] VITALS: BP 151/69
== END 2021-03-08 11:20 | disposition home or self-care (01) ==
LOC: WS 11:10 → WSo 11:10 → UNDODISOB 03-08 11:20 → WSo 03-08 11:20 → EDSTATUS 03-14 11:41
PROVIDERS: ATTEND Obstetrics & Gynecology
DX: S31.41XA Laceration without foreign body of vagina and vulva, initial encounter (principal); T81.30XA Disruption of wound, unspecified, initial encounter; L98.492 Non-pressure chronic ulcer of skin of other sites with fat layer exposed; I10 Essential (primary) hypertension; K62.6 Ulcer of anus and rectum; E78.2 Mixed hyperlipidemia; F41.9 Anxiety disorder, unspecified; D64.9 Anemia, unspecified; Z79.899 Other long term (current) drug therapy
CPT/HCPCS: 11423; 88305; G0378; G0379; 99211

== ENCOUNTER 2021-03-16 14:59 | Inpatient (IN) | payer MEDICARE ==
[~2021-03-16] VITALS: Ht 170 cm; Wt 65.4 kg
[~2021-03-16 14:59] MED LIST changes: +LACTATED RINGERS 1,000 ML IV ONE; -morphine INJ 4 MG/ML 1 ML (VIAL/SYRINGE) IV PRN
--- NOTE | 2021-03-16 15:14 | ED General ---
General Chief Complaint: General Problems/Pain Stated Complaint: ABNORMAL LABS Source of Information: Patient Exam Limitations: No Limitations History of Present Illness Date Seen by Provider: March 16, 2021 Time Seen by Provider: 15:02 Initial Comments To ER by wheel from the cancer center with reports of concern for sepsis. Patient is being seen by Dr. Canada for neutropenia which the daughter states has been present for about 3 years and getting progressively worse. Cause is yet to be determined. Possibility of a Felty syndrome has been brought up. She has a history of psoriasis. Today her absolute neutrophil count was around 350. She reports chills since yesterday. No cough no shortness of breath. She does have abdominal pain. On January 31 she had anterior posterior repair with perineorrhaphy. On 03/07/2021 she had revision of perineal incision and incision and drainage of perineal incision. Timing/Duration: 1-2 Days Severity: Moderate Associated Systoms: Fever/Chills Allergies and Home Medications Allergies Coded Allergies: levofloxacin (Verified Allergy, Unknown, hands swelled, 12/21/19) Home Medications Acetaminophen 500 Mg Tablet, 1,000 MG PO Q8HR Prescribed by: YAZMIN REDDY on 03/08/21 0840 Amlodipine Besylate 10 Mg Tablet, 10 MG PO DAILY, (Reported) Benzocaine/Menthol 78 Gm Aerosol, 0 ML TP UD PRN for PAIN-MILD (1-4) Prescribed by: YAZMIN REDDY on 02/01/21 0826 Carvedilol 6.25 Mg Tablet, 6.25 MG PO BID, (Reported) Docusate Sodium 100 Mg Capsule, 100 MG PO BID Prescribed by: YAZMIN REDDY on 03/08/21 0840 Ibuprofen 600 Mg Tablet, 600 MG PO Q6H Prescribed by: YAZMIN REDDY on 03/08/21 0840 Leflunomide 10 Mg Tablet, 20 MG PO DAILY, (Reported) Lisinopril 20 Mg Tablet, 20 MG PO DAILY, (Reported) Magnesium Hydroxide 400 Mg/5 Ml Oral.susp, 30 ML PO TID PRN for CONSTIPATION-1ST LINE Prescribed by: YAZMIN REDDY on 02/01/21 0826 Oxybutynin Chloride 5 Mg Tab.er.24, 5 MG PO BID, (Reported) Oxycodone Hcl 5 Mg Tab, 5 MG PO Q6H Prescribed by: YAZMIN REDDY on 03/08/21 0840 Prednisone 5 Mg Tablet, 5 MG PO DAILY, (Reported) Sertraline HCl 100 Mg Tablet, 100 MG PO DAILY, (Reported) Patient Home Medication List Home Medication List Reviewed: Yes Review of Systems Review of Systems Constitutional: see HPI, chills EENTM: see HPI Respiratory: no symptoms reported Cardiovascular: no symptoms reported Genitourinary: no symptoms reported Musculoskeletal: no symptoms reported Skin: no symptoms reported Psychiatric/Neurological: No Symptoms Reported Hematologic/Lymphatic: No Symptoms Reported Past [id number]-[id number] Hx Patient Social History Type Used: Cigarettes Recent Hopitalizations: No Immunizations Up To Date Date of Influenza Vaccine: Sep 08, 2020 Seasonal Allergies Seasonal Allergies: No Past Medical History Surgeries: Yes Adenoidectomy, Gallbladder, Hysterectomy, Tonsillectomy Respiratory: No COPD Currently Using CPAP: No Currently Using BIPAP: No Cardiac: Yes Coronary Artery Disease, Hypertension Neurological: No Genitourinary: Yes (bladder prolapse) UTI-Chronic Gastrointestinal: No Musculoskeletal: Yes Arthritis Endocrine: No HEENT: No (hx cataract removed) Cancer: Yes Skin What Type of Treatment Did You: Surgical Intervention Psychosocial: Yes Depression Integumentary: Yes Eczema Blood Disorders: No Family Medical History Heart Disease, Cancer, Stroke Physical Exam Vital Signs Vital Signs - First Documented 03/16/21 15:13 Temp 36.4 Pulse 98 Resp 18 B/P (MAP) 155/77 (103) Pulse Ox 94 O2 Delivery Room Air Capillary Refill : Height, Weight, BMI Height: 5'7.00" Weight: 170lbs. oz. 77.680432wy; 23.59 BMI Method:Stated General Appearance: No Apparent Distress, WD/WN, Other (Alert and oriented no distress very pleasant. Appears to feel unwell. She is not hypotensive or tachycardic.) Eyes: Bilateral Eye Normal Inspection, Bilateral Eye PERRL HEENT: PERRL/EOMI Neck: Full Range of Motion, Normal Inspection Respiratory: No Accessory Muscle Use, No Respiratory Distress Cardiovascular: Regular Rate, Rhythm, Normal Peripheral Pulses Gastrointestinal: Normal Bowel Sounds, Soft, Tenderness (Suprapubic) Extremity: Normal Capillary Refill, Normal Inspection Neurologic/Psychiatric: Alert, Oriented x3 Skin: Normal Color, Warm/Dry Focused Exam Lactate Level 03/16/21 15:09: Lactic Acid Level 1.33 Lactic Acid Level Laboratory Tests Test 03/16/21 15:09 Lactic Acid Level 1.33 MMOL/L (0.50-2.00) Progress/Results/Core Measures Suspected Sepsis SIRS Temperature: Pulse: Respiratory Rate: Blood Pressure / Mean: 03/16/21 15:09: Lactic Acid Level 1.33 Laboratory Tests 03/16/21 15:09: Creatinine 0.82, Total Bilirubin 0.4 Results/Orders Lab Results Laboratory Tests Test 03/16/21 15:09 03/16/21 16:29 Range/Units Sodium Level 138 135-145 MMOL/L Potassium Level 3.4 L 3.6-5.0 MMOL/L Chloride Level 98 98-107 MMOL/L Carbon Dioxide Level 25 21-32 MMOL/L Anion Gap 15 H 5-14 MMOL/L Blood Urea Nitrogen 16 7-18 MG/DL Creatinine 0.82 0.60-1.30 MG/DL Estimat Glomerular Filtration Rate > 60 BUN/Creatinine Ratio 20 Glucose Level 101 70-105 MG/DL Lactic Acid Level 1.33 0.50-2.00 MMOL/L Calcium Level 9.4 8.5-10.1 MG/DL Corrected Calcium 9.7 8.5-10.1 MG/DL Total Bilirubin 0.4 0.1-1.0 MG/DL Aspartate Amino Transf (AST/SGOT) 18 5-34 U/L Alanine Aminotransferase (ALT/SGPT) 20 0-55 U/L Alkaline Phosphatase 74 40-136 U/L Total Protein 7.2 6.4-8.2 GM/DL Albumin 3.6 3.2-4.5 GM/DL Urine Color YELLOW Urine Clarity CLOUDY Urine pH 6.5 5-9 Urine Specific [place] <=1.005 1.016-1.022 Urine Protein NEGATIVE NEGATIVE Urine Glucose (UA) NEGATIVE NEGATIVE Urine Ketones NEGATIVE NEGATIVE Urine Nitrite POSITIVE H NEGATIVE Urine Bilirubin NEGATIVE NEGATIVE Urine Urobilinogen 0.2 < = 1.0 MG/DL Urine Leukocyte Esterase 2+ H NEGATIVE Urine RBC (Auto) 2+ H NEGATIVE Urine RBC NONE /HPF Urine WBC >100 H /HPF Urine Squamous Epithelial Cells 10-25 H /HPF Urine Crystals NONE /LPF Urine Bacteria FEW H /HPF Urine Casts NONE /LPF Urine Mucus NEGATIVE /LPF Urine Culture Indicated YES My Orders Orders - HAIRSTON,PETER J SALES AND IN HOME DELIVERY SPECIALIST Blood Culture (03/16/21 15:02) Lactic Acid Analyzer (03/16/21 15:02) Comprehensive Metabolic Panel (03/16/21 15:02) Ed Iv/Invasive Line Start (03/16/21 15:02) Ua Culture If Indicated (03/16/21 15:02) Chest 1 View, Ap/Pa Only (03/16/21 15:02) Ct Abdomen/Pelvis W (03/16/21 15:02) Lactated Ringers (Lr 1000 Ml Iv Solution (03/16/21 15:15) Lactated Ringers (Lr 1000 Ml Iv Solution (03/16/21 14:57) Fentanyl Inj (Sublimaze Injection) (03/16/21 15:15) Ondansetron Injection (Zofran Injectio (03/16/21 15:15) Iohexol Injection (Omnipaque 350 Mg/Ml 1 (03/16/21 15:30) Received Contrast (Hold Metformin- Contr (03/16/21 15:30) Sodium Chloride Flush (Catheter Flush Sy (03/16/21 15:30) Ns (Ivpb) (Sodium Chloride 0.9% Ivpb Bag (03/16/21 15:30) Piperacillin Sodium/Tazobactam (Zosyn Vi (03/16/21 16:30) Piperacillin Sodium/Tazobactam (Zosyn Vi (03/16/21 16:30) Urine Culture (03/16/21 16:29) Medications Given in ED Current Medications Medications Dose Ordered Sig/Fazal Route Start Time Stop Time Status Last Admin Dose Admin Fentanyl Citrate 50 mcg ONCE ONCE IVP 03/16/21 15:15 03/16/21 15:16 DC 03/16/21 15:27 50 MCG Iohexol 100 ml ONCE ONCE IV 03/16/21 15:30 03/16/21 15:31 DC 03/16/21 15:48 80 ML Ondansetron HCl 4 mg ONCE ONCE IVP 03/16/21 15:15 03/16/21 15:16 DC 03/16/21 15:27 4 MG Piperacillin Sod/ Tazobactam Sod 4.5 gm/Sodium Chloride 100 ml @ 200 mls/hr ONCE ONCE IV 03/16/21 16:30 03/16/21 16:59 DC 03/16/21 16:36 200 MLS/HR Sodium Chloride 10 ml NEEDED PRN IV 03/16/21 15:30 03/16/21 15:48 10 ML Sodium Chloride 100 ml ONCE ONCE IV 03/16/21 15:30 03/16/21 15:31 DC 03/16/21 15:48 80 ML Vital Signs/I&O 03/16/21 03/16/21 15:13 15:27 Temp 36.4 36.4 Pulse 98 Resp 18 B/P (MAP) 155/77 (103) Pulse Ox 94 O2 Delivery Room Air Capillary Refill : Departure Communication (Admissions) Family Conversation Spoke with Dr. Ryan, will admit on Zosyn. Would like to consult Dr. Canada. I spoke with Dr. Canada, states that he saw her in the clinic himself today. He does not need to consult as there is nothing to be added. Just pain control and antibiotics. The neutropenia is chronic and stable. NAME: MAHAD GREGG [facility] REC#: [id number] PT STATUS: REG ER : 1945 PHYSICIAN: ITA HAIRSTON SALES AND IN HOME DELIVERY SPECIALIST ADMIT DATE: 03/16/21/ER Draft Date of Exam:03/16/21 CT ABDOMEN/PELVIS W EXAMINATION: CT abdomen and pelvis with intravenous contrast. TECHNIQUE: Multiple contiguous axial images were obtained through the abdomen and pelvis after the uneventful administration of intravenous contrast. All CT scans use one or more of the following dose optimizing techniques: automated exposure control, MA and/or KvP adjustment based on patient size and exam type or iterative reconstruction. HISTORY: pain COMPARISON: None available. FINDINGS: Lung bases: Atelectasis or scarring within the lung bases. Solid organs: Hepatic cysts are present. The liver is otherwise unremarkable. The gallbladder is surgically absent. There is no biliary ductal dilation. Pancreas is normal. Spleen is normal. Adrenal glands are normal. A right renal cyst is present and requires no follow-up. The kidneys are otherwise unremarkable without hydronephrosis. Bowel: The stomach and small bowel are normal without obstruction. There is scattered colonic diverticulosis. There is inflammatory stranding within the left lower quadrant near the sigmoid colon (series 2 image 73). The tip of the cecum extends into a right inguinal hernia. Peritoneum: There is no intraperitoneal free fluid or free air. No suspicious lymphadenopathy. Vasculature: Calcification of the aorta without aneurysm. Musculoskeletal: Degenerative changes of the spine without suspicious osseous lesion or compression fracture. Pelvis: The uterus is surgically absent. No adnexal mass. There is diffuse bladder wall thickening. IMPRESSION: 1. Findings suggestive of sigmoid diverticulitis without abscess or free air. 2. Bladder wall thickening. Recommend correlation with urinalysis. 3. A right inguinal hernia containing a portion of the cecal tip. No bowel obstruction. Dictated on workstation # [id number] Dict: 03/16/21 1603 Trans: 03/16/21 1613 [id number] [id number] Interpreted by: DEVON OCONNOR DO Electronically signed by: Impression Primary Impression: Diverticulitis Additional Impressions: Neutropenia Urinary tract infection Disposition: ADMITTED INPATIENT Condition: Stable Admissions Decision to Admit Reason: Admit from ER (General) Decision to Admit/Date: March 16, 2021 Time/Decision to Admit Time: 16:48 Departure-Patient Inst. Referrals: TIFFANI MARTINEZ DO (PCP/Family) Primary Care Physician ITA HAIRSTON APRN March 16, 2021 15:14
[2021-03-16] MEDS ORDERED: LACTATED RINGERS 1,000 ML IV SCH (15:15)
[2021-03-16] MEDS ORDERED: ONDANSETRON 4 MG/2 ML (SDV) Z0FRAN IVP ONE (15:15)
[2021-03-16] MEDS ORDERED: fentaNYL INJ 100 MCG/2 ML AMP IVP ONE (15:15)
[2021-03-16] MEDS ORDERED: HOLD METFORMIN - RECEIVED CONTRAST 20 ML VIAL IV SCH (15:30)
[2021-03-16] MEDS ORDERED: IOHEXOL 350 MG/ML 100 ML (OMNIPAQUE 350) VIAL IV ONE (15:30)
[2021-03-16] MEDS ORDERED: CATHETER FLUSH 10 ML SYR IV PRN ×2 (15:30→18:30)
[2021-03-16] MEDS ORDERED: NS 100 ML (IVPB) BAG IV ONE (15:30)
[2021-03-16 15:35] LABS: ALBUMIN 3.6 GM/DL (3.2-4.5)
[2021-03-16 15:36] LABS: CHLORIDE 98 MMOL/L (98-107); POTASSIUM 3.4 MMOL/L (3.6-5.0); SODIUM 138 MMOL/L (135-145)
[2021-03-16 15:37] LABS: CALCIUM 9.4 MG/DL (8.5-10.1)
[2021-03-16 15:38] LABS: GLUCOSE 101 MG/DL (70-105); TOTAL PROTEIN 7.2 GM/DL (6.4-8.2)
[2021-03-16 15:39] LABS: CARBON DIOXIDE 25 MMOL/L (21-32)
[2021-03-16 15:40] LABS: BILIRUBIN,TOTAL 0.4 MG/DL (0.1-1.0)
[2021-03-16 15:41] LABS: ALKALINE PHOSPHATASE 74 U/L (40-136)
[2021-03-16 15:42] LABS: CREATININE SERUM 0.82 MG/DL (0.60-1.30); GFR ESTIMATED > 60
[2021-03-16 15:43] LABS: BUN/CREATININE RATIO 20
[2021-03-16 15:44] LABS: ALANINE AMINOTRANSFERASE 20 U/L (0-55)
--- NOTE | 2021-03-16 16:14 | Diagnostic Imaging Report ---
EXAMINATION: CT abdomen and pelvis with intravenous contrast. TECHNIQUE: Multiple contiguous axial images were obtained through the abdomen and pelvis after the uneventful administration of intravenous contrast. All CT scans use one or more of the following dose optimizing techniques: automated exposure control, MA and/or KvP adjustment based on patient size and exam type or iterative reconstruction. HISTORY: pain COMPARISON: None available. FINDINGS: Lung bases: Atelectasis or scarring within the lung bases. Solid organs: Hepatic cysts are present. The liver is otherwise unremarkable. The gallbladder is surgically absent. There is no biliary ductal dilation. Pancreas is normal. Spleen is normal. Adrenal glands are normal. A right renal cyst is present and requires no follow-up. The kidneys are otherwise unremarkable without hydronephrosis. Bowel: The stomach and small bowel are normal without obstruction. There is scattered colonic diverticulosis. There is inflammatory stranding within the left lower quadrant near the sigmoid colon (series 2 image 73). The tip of the cecum extends into a right inguinal hernia. Peritoneum: There is no intraperitoneal free fluid or free air. No suspicious lymphadenopathy. Vasculature: Calcification of the aorta without aneurysm. Musculoskeletal: Degenerative changes of the spine without suspicious osseous lesion or compression fracture. Pelvis: The uterus is surgically absent. No adnexal mass. There is diffuse bladder wall thickening. IMPRESSION: 1. Findings suggestive of sigmoid diverticulitis without abscess or free air. 2. Bladder wall thickening. Recommend correlation with urinalysis. 3. A right inguinal hernia containing a portion of the cecal tip. No bowel obstruction. Dictated by: Dictated on workstation # [id number]
[2021-03-16] MEDS ORDERED: PIPERACILLIN SODIUM/TAZOBACTAM 4.5 GM in NS (IVPB) 100 ML IV ONE ×4 (16:30)
--- NOTE | 2021-03-16 16:30 | Diagnostic Imaging Report ---
EXAMINATION: Chest 1 view HISTORY: weakness COMPARISON: 03/31/2015 FINDINGS: The lungs are clear without edema or pneumonia. No pleural effusion or pneumothorax. Heart size is normal. IMPRESSION: 1. Clear lungs. Dictated by: Dictated on workstation # [id number]
[2021-03-16 16:39] LABS: BILIRUBIN,URINE NEGATIVE (NEGATIVE); CLARITY,URINE CLOUDY; COLOR,URINE YELLOW; GLUCOSE, URINE (UA) NEGATIVE (NEGATIVE); KETONES,URINE NEGATIVE (NEGATIVE); LEUKOCYTE ESTERASE ,URINE 2+ (NEGATIVE); NITRITE,URINE POSITIVE (NEGATIVE); PH,URINE 6.5 (5-9); PROTEIN,URINE NEGATIVE (NEGATIVE)
[2021-03-16 16:46] LABS: BACTERIA,URINE FEW /HPF; WBC,URINE >100 /HPF
[2021-03-16 17:45] VITALS: BP 157/75
[2021-03-16] MEDS ORDERED: oxyCODONE/APAP 7.5-325 MG (PERCOCET 7.5) TABLET ONE (18:29)
[2021-03-16] MEDS ORDERED: fentaNYL INJ 100 MCG/2 ML AMP IV PRN (18:30)
[2021-03-16] MEDS ORDERED: ONDANSETRON 4 MG (ZOFRAN) ORAL DISSOLVE TAB PO PRN (18:30)
[2021-03-16] MEDS ORDERED: ONDANSETRON 4 MG/2 ML (SDV) Z0FRAN IV PRN ×2 (18:30)
[2021-03-16] MEDS ORDERED: ACETAMINOPHEN 325 MG TABLET PO PRN (18:30)
[2021-03-16] MEDS ORDERED: MELATONIN 3 MG TABLET PO PRN (18:30)
[2021-03-16] MEDS ORDERED: ANTACID SUSP 30 ML UDC (MYLANTA) PO PRN (18:30)
[2021-03-16] MEDS ORDERED: diphenhydrAMINE 25 MG TAB (BENADRYL) PO PRN (18:30)
[2021-03-16] MEDS: LACTATED RINGERS 1,000 ML IV SCH (18:34)
[2021-03-16] MEDS: ENOXAPARIN 40 MG/0.4 ML (LOVENOX) SYR SC SCH (18:45)
[2021-03-16 20:00] VITALS: BP 139/74
[2021-03-16] MEDS: PIPERACILLIN/TAZO 4.5 GM/NS 100 ML IV SCH ×2 (22:12)
[2021-03-16 23:30] VITALS: BP 149/64
[2021-03-17 04:05] VITALS: BP 130/67
[2021-03-17 05:45] LABS: BASOPHILS % (AUTO) 0 % (0-10); EOSINOPHILS % (AUTO) 0 % (0-10); HEMATOCRIT 22 % (35-52); LYMPHOCYTES # (AUTO) 0.6 10^3/uL (1.0-4.0); LYMPHOCYTES % (AUTO) 30 % (12-44); MEAN CORPUSCULAR HGB CONC 31 g/dL (32-36); MEAN CORPUSCULAR VOLUME 87 fL (80-99); MEAN PLATELET VOLUME 11.4 fL (9.0-12.2); MONOCYTES # (AUTO) 1.1 10^3/uL (0.0-1.0); MONOCYTES % (AUTO) 54 % (0-12); NEUTROPHILS # (AUTO) 0.3 10^3/uL (1.8-7.8); NEUTROPHILS % (AUTO) 14 % (42-75); PLATELET COUNT 71 10^3/uL (130-400)
[2021-03-17 05:47] LABS: MEAN CORPUSCULAR HEMOGLOBIN 28 pg (25-34)
[2021-03-17 05:58] LABS: CHLORIDE 102 MMOL/L (98-107); POTASSIUM 3.2 MMOL/L (3.6-5.0); SODIUM 138 MMOL/L (135-145)
[2021-03-17 05:59] LABS: CALCIUM 8.2 MG/DL (8.5-10.1)
[2021-03-17 06:00] LABS: GLUCOSE 89 MG/DL (70-105)
[2021-03-17 06:01] LABS: CARBON DIOXIDE 27 MMOL/L (21-32)
[2021-03-17 06:03] LABS: CREATININE SERUM 0.73 MG/DL (0.60-1.30); GFR ESTIMATED > 60
[2021-03-17 06:04] LABS: BUN/CREATININE RATIO 14
[2021-03-17 06:06] LABS: MAGNESIUM 1.5 MG/DL (1.6-2.4)
[2021-03-17] MEDS: PIPERACILLIN/TAZO 4.5 GM/NS 100 ML IV SCH ×6 (06:22→22:44)
[2021-03-17] MEDS: POTASSIUM CL 10MEQ/50ML IVPB 50 ML IV SCH (06:23)
[2021-03-17] MEDS: KCL 20 MEQ TAB (K-DUR) PO SCH (06:23)
[2021-03-17] MEDS: MAGNESIUM 1 GM/100 ML IVPB 100 ML IV SCH ×3 (06:23→08:41)
[2021-03-17] MEDS ORDERED: KCL 20 MEQ TAB (K-DUR) PO ONE ×2 (06:25→08:15)
[2021-03-17] MEDS: LACTATED RINGERS 1,000 ML IV SCH ×3 (06:39→16:02)
[2021-03-17 08:00] VITALS: BP 145/63
[2021-03-17] MEDS: amLODIPine 10 MG (NORVASC) TAB PO SCH (08:41)
[2021-03-17] MEDS: SERTRALINE 100 MG (ZOLOFT) TAB PO SCH (08:42)
[2021-03-17] MEDS: lisINopril 40 MG (PRINIVIL) TABLET PO SCH (08:42)
[2021-03-17] MEDS ORDERED: ACET-2267 PO (11:42)
[2021-03-17] MEDS ORDERED: IBUP-1773 PO (11:42)
[2021-03-17] MEDS ORDERED: DOCU100C37 PO (11:42)
[2021-03-17] MEDS ORDERED: ZINC50TA58 PO (11:42)
[2021-03-17] MEDS ORDERED: CHOL100045 PO (11:42)
[2021-03-17 11:57] VITALS: BP 105/62
--- NOTE | 2021-03-17 12:30 | History & Physical-Hospitalist ---
History of Present Illness HPI/Chief Complaint Ellie Flynn is a 75-year-old female with past medical history of hypertension, pancytopenia, cystocele/rectocele status post recent repair, who presented with weakness. She reports that she has not been feeling well since she had her surgery. She had her initial surgery a little over a month ago. She had a revision performed about a week ago. She denies any fevers or chills. She denies any abdominal pain. She denies any nausea or vomiting. She denies any diarrhea. She denies any dysuria. She denies any shortness of breath or cough. She denies any chest pain. She has a history of pancytopenia for which she follows with Dr. Canada. A cause for her low blood counts has not yet been determined and she may be going to the [facility] for further evaluation. Source: patient, family Exam Limitations: no limitations Date Seen 03/17/21 Time Seen by a Provider: 09:40 Attending Physician Karo Paulino MD PCP Zaid Mario DO Referring Physician Date of Admission March 16, 2021 at 17:00 Home Medications & Allergies Home Medications Reviewed patient Home Medication Reconciliation performed by pharmacy medication reconciliations vending technician and/or nursing. Patients Allergies have been reviewed. Allergies Allergies Coded Allergies levofloxacin (Verified Allergy, Unknown, hands swelled, 03/16/21) Patient Social History Tobacco Use?: No Smoking Status: Never a Smoker Use of E-Cig and/or Vaping dev: No Substance use?: No Alcohol Use?: No Pt stated abuse/neglect: No Immunizations Up To Date Influenza Vaccine Up-to-Date: Yes; Up-to-Date Current Status Do you have an Advance Directi: No Communicates: Verbally Primary Language: Czech Preferred Spoken Language: Czech Is interpretation needed?: No Implanted or Applied Medical D: None Past Medical History Hypertension Pancytopenia Cystocele/Rectocele Family Medical History Family Hx: Noncontributory Review of Systems Constitutional: weakness EENTM: no symptoms reported Respiratory: no symptoms reported Cardiovascular: no symptoms reported Gastrointestinal: no symptoms reported Genitourinary: pain Musculoskeletal: no symptoms reported Skin: no symptoms reported Psychiatric/Neurological: No Symptoms Reported Physical Exam Physical Exam Vital Signs Vital Signs - First Documented 03/16/21 15:13 Temp 36.4 Pulse 98 Resp 18 B/P (MAP) 155/77 (103) Pulse Ox 94 O2 Delivery Room Air Capillary Refill : Less Than 3 Seconds Height, Weight, BMI Height: 5'7.00" Weight: 170lbs. oz. 77.877011mq; 22.14 BMI Method:Stated General Appearance: No Apparent Distress, WD/WN HEENT: PERRL/EOMI, Pharynx Normal Neck: Normal Inspection, Supple Respiratory: Lungs Clear, Normal Breath Sounds, No Respiratory Distress Cardiovascular: Regular Rate, Rhythm, No Edema, No Murmur Gastrointestinal: Normal Bowel Sounds, Non Tender, Soft, Other (Lower abdomen bandaged) Extremity: Normal Inspection, Non Tender, No Pedal Edema Neurologic/Psychiatric: Alert, Oriented x3, No Motor/Sensory Deficits, Normal Mood/Affect Skin: Normal Color, Warm/Dry Results Results/Procedures Labs Laboratory Tests 03/16/21 15:09 03/17/21 05:25 Patient resulted labs reviewed. Imaging: Reviewed Imaging Report Assessment/Plan Admission Diagnosis Urinary tract infection Admission Status: Inpatient Order (span 2 midnights) Reason for Inpatient Admission: UTI requiring IV antibiotics Assessment and Plan Urinary tract infection Pancytopenia Severe neutropenia UA consistent with UTI Urine culture pending Started on Zosyn IV fluids Blood counts apparently at baseline Continue to monitor Consult Hematology, Dr. Nguyen, appreciate assistance Cystocele/rectocele status post recent repair Possible diverticulitis Consult Dr. Madera, appreciate assistance CT showed evidence of possible diverticulitis No symptoms of diverticulitis Likely post-op inflammatory changes Continue to monitor Advance diet to general Hypokalemia Hypomagnesemia Monitor and replace as needed DVT prophylaxis: Lovenox, patient refusing Diagnosis/Problems Diagnosis/Problems (1) Urinary tract infection Status: Acute (2) Neutropenia Status: Chronic (3) Pancytopenia Status: Chronic (4) Cystocele with rectocele Status: Acute (5) Hypokalemia Status: Acute (6) Hypomagnesemia Status: Acute KARO PAULINO MD March 17, 2021 12:30
[2021-03-17 16:30] VITALS: BP 121/56
[2021-03-17] MEDS: ENOXAPARIN 40 MG/0.4 ML (LOVENOX) SYR SC SCH (18:41)
[2021-03-17 19:35] VITALS: BP 126/61
[2021-03-18 00:16] VITALS: BP 103/62
[2021-03-18 04:41] VITALS: BP 118/59
[2021-03-18 05:31] LABS: BASOPHILS % (AUTO) 0 % (0-10); EOSINOPHILS % (AUTO) 1 % (0-10); HEMATOCRIT 21 % (35-52); LYMPHOCYTES # (AUTO) 0.6 10^3/uL (1.0-4.0); LYMPHOCYTES % (AUTO) 40 % (12-44); MEAN CORPUSCULAR HEMOGLOBIN 27 pg (25-34); MEAN CORPUSCULAR HGB CONC 31 g/dL (32-36); MEAN CORPUSCULAR VOLUME 86 fL (80-99); MEAN PLATELET VOLUME 11.2 fL (9.0-12.2); MONOCYTES # (AUTO) 0.7 10^3/uL (0.0-1.0); MONOCYTES % (AUTO) 49 % (0-12); NEUTROPHILS # (AUTO) 0.1 10^3/uL (1.8-7.8); NEUTROPHILS % (AUTO) 6 % (42-75); PLATELET COUNT 68 10^3/uL (130-400); WHITE BLOOD COUNT 1.5 10^3/uL (4.3-11.0)
[2021-03-18 05:34] LABS: HEMOGLOBIN 6.4 g/dL (11.5-16.0)
[2021-03-18] MEDS: LACTATED RINGERS 1,000 ML IV SCH (05:40)
[2021-03-18 05:44] LABS: CHLORIDE 105 MMOL/L (98-107); POTASSIUM 3.9 MMOL/L (3.6-5.0); SODIUM 139 MMOL/L (135-145)
[2021-03-18 05:45] LABS: CALCIUM 8.1 MG/DL (8.5-10.1)
[2021-03-18 05:46] LABS: GLUCOSE 89 MG/DL (70-105)
[2021-03-18 05:47] LABS: CARBON DIOXIDE 26 MMOL/L (21-32)
[2021-03-18 05:50] LABS: CREATININE SERUM 0.66 MG/DL (0.60-1.30); GFR ESTIMATED > 60
[2021-03-18 05:51] LABS: BUN/CREATININE RATIO 12
[2021-03-18] MEDS: POTASSIUM CL 10MEQ/50ML IVPB 50 ML IV SCH (05:52)
[2021-03-18] MEDS: KCL 20 MEQ TAB (K-DUR) PO SCH (05:52)
[2021-03-18] MEDS: MAGNESIUM 1 GM/100 ML IVPB 100 ML IV SCH (05:54)
[2021-03-18] MEDS: PIPERACILLIN/TAZO 4.5 GM/NS 100 ML IV SCH ×2 (06:04)
[2021-03-18] MEDS ORDERED: NS IV 500 ML 500 ML IV SCH (07:15)
[2021-03-18 08:00] VITALS: BP 125/60
[2021-03-18] MEDS: SERTRALINE 100 MG (ZOLOFT) TAB PO SCH (08:23)
[2021-03-18] MEDS: lisINopril 40 MG (PRINIVIL) TABLET PO SCH (09:00)
[2021-03-18] MEDS: amLODIPine 10 MG (NORVASC) TAB PO SCH (09:00)
[2021-03-18 12:00] VITALS: BP 121/59
[2021-03-18] MEDS: cefTRIAXone FOR IV USE 1,000 MG in WATER (STERILE) FOR INJECTION 10 ML IV SCH (14:16)
[2021-03-18] MEDS ORDERED: SENNA W/DOCUSATE (SENOKOT S) TABLET PO PRN (14:30)
--- NOTE | 2021-03-18 15:35 | Progress Note - Hospitalist ---
Subjective HPI/CC On Admission Date Seen by Provider: March 18, 2021 Time Seen by Provider: 10:50 Ellie Flynn is a 75-year-old female with past medical history of hypertension, pancytopenia, cystocele/rectocele status post recent repair, who presented with weakness. She reports that she has not been feeling well since she had her s urgery. She had her initial surgery a little over a month ago. She had a revision performed about a week ago. She denies any fevers or chills. She denies any abdominal pain. She denies any nausea or vomiting. She denies any diarrhea. She denies any dysuria. She denies any shortness of breath or cough. She denies any chest pain. She has a history of pancytopenia for which she follows with Dr. Canada. A cause for her low blood counts has not yet been determined and she may be going to the [facility] for further evaluation. Subjective/Events-last exam She is feeling a bit better today. She still has some lower abdominal pain. She has not noticed any bleeding. Focused Exam Lactate Level 03/16/21 15:09: Lactic Acid Level 1.33 Objective Exam Vital Signs Vital Signs Date Time Temp Pulse Resp B/P (MAP) Pulse Ox O2 Delivery O2 Flow Rate FiO2 03/18/21 12:00 35.9 77 16 121/59 (79) 94 Room Air Capillary Refill : Less Than 3 Seconds General Appearance: No Apparent Distress, WD/WN Neck: Normal Inspection, Supple Respiratory: Lungs Clear, Normal Breath Sounds, No Respiratory Distress Cardiovascular: Regular Rate, Rhythm, No Edema, No Murmur Gastrointestinal: Normal Bowel Sounds, Non Tender, Soft Extremity: Normal Inspection, Non Tender, No Pedal Edema Neurologic/Psychiatric: Alert, Oriented x3, No Motor/Sensory Deficits, Normal Mood/Affect Skin: Normal Color, Warm/Dry Results/Procedures Lab Laboratory Tests 03/18/21 05:08 Patient resulted labs reviewed. Imaging: Reviewed Imaging Report Assessment/Plan Assessment and Plan Assess & Plan/Chief Complaint Urinary tract infection Pancytopenia Severe neutropenia UA consistent with UTI Urine culture with E coli Transition to Rocephin Stop IV fluids Blood counts trended down slightly Recommended transfusion, patient refused Follows with Dr. Nguyen, will see patient on Saturday Cystocele/rectocele status post recent repair Possible diverticulitis Underwent surgery with Dr. Madera CT showed evidence of possible diverticulitis No symptoms of diverticulitis Likely post-op inflammatory changes Continue to monitor DVT prophylaxis: Lovenox, patient refusing Hypokalemia, resolved Hypomagnesemia, resolved Diagnosis/Problems Diagnosis/Problems (1) Urinary tract infection Status: Acute (2) Neutropenia Status: Chronic (3) Pancytopenia Status: Chronic (4) Cystocele with rectocele Status: Acute (5) Hypokalemia Status: Resolved Resolution Date/Time: 03/18/21 @ 15:35 (6) Hypomagnesemia Status: Resolved Resolution Date/Time: 03/18/21 @ 15:35 KARO PAULINO MD March 18, 2021 15:35
[2021-03-18 16:28] VITALS: BP 119/62
[2021-03-18] MEDS: ENOXAPARIN 40 MG/0.4 ML (LOVENOX) SYR SC SCH (18:12)
[2021-03-18 20:32] VITALS: BP 158/78
[2021-03-18] MEDS: DOCUSATE SODIUM 100 MG (COLACE) CAP PO PRN (20:38)
[2021-03-19 00:41] VITALS: BP 135/67
[2021-03-19 03:22] VITALS: BP 155/70
[2021-03-19 04:57] LABS: BASOPHILS % (AUTO) 0 % (0-10); EOSINOPHILS % (AUTO) 0 % (0-10); MEAN CORPUSCULAR VOLUME 85 fL (80-99)
[2021-03-19 04:59] LABS: HEMATOCRIT 23 % (35-52); HEMOGLOBIN 7.1 g/dL (11.5-16.0); LYMPHOCYTES # (AUTO) 0.7 10^3/uL (1.0-4.0); LYMPHOCYTES % (AUTO) 45 % (12-44); MEAN CORPUSCULAR HEMOGLOBIN 27 pg (25-34); MEAN CORPUSCULAR HGB CONC 31 g/dL (32-36); MEAN PLATELET VOLUME 11.4 fL (9.0-12.2); MONOCYTES # (AUTO) 0.7 10^3/uL (0.0-1.0); MONOCYTES % (AUTO) 46 % (0-12); NEUTROPHILS # (AUTO) 0.1 10^3/uL (1.8-7.8); NEUTROPHILS % (AUTO) 4 % (42-75); PLATELET COUNT 80 10^3/uL (130-400)
[2021-03-19 05:01] LABS: CHLORIDE 104 MMOL/L (98-107); POTASSIUM 3.7 MMOL/L (3.6-5.0); SODIUM 138 MMOL/L (135-145)
[2021-03-19 05:02] LABS: CALCIUM 8.6 MG/DL (8.5-10.1); GLUCOSE 86 MG/DL (70-105)
[2021-03-19 05:03] LABS: WHITE BLOOD COUNT 1.5 10^3/uL (4.3-11.0)
[2021-03-19 05:04] LABS: CARBON DIOXIDE 24 MMOL/L (21-32)
[2021-03-19 05:06] LABS: CREATININE SERUM 0.62 MG/DL (0.60-1.30); GFR ESTIMATED > 60
[2021-03-19 05:07] LABS: BUN/CREATININE RATIO 6
[2021-03-19] MEDS: POTASSIUM CL 10MEQ/50ML IVPB 50 ML IV SCH (05:17)
[2021-03-19] MEDS: MAGNESIUM 1 GM/100 ML IVPB 100 ML IV SCH (05:17)
[2021-03-19] MEDS: KCL 20 MEQ TAB (K-DUR) PO SCH (05:17)
[2021-03-19 08:00] VITALS: BP 146/72
[2021-03-19] MEDS: DOCUSATE SODIUM 100 MG (COLACE) CAP PO PRN (08:18)
[2021-03-19] MEDS: SERTRALINE 100 MG (ZOLOFT) TAB PO SCH (08:19)
[2021-03-19] MEDS: amLODIPine 10 MG (NORVASC) TAB PO SCH (08:22)
[2021-03-19] MEDS: lisINopril 40 MG (PRINIVIL) TABLET PO SCH (08:22)
--- NOTE | 2021-03-19 11:28 | Progress Note - Hospitalist ---
Subjective HPI/CC On Admission Date Seen by Provider: March 19, 2021 Time Seen by Provider: 09:50 Ellie Flynn is a 75-year-old female with past medical history of hypertension, pancytopenia, cystocele/rectocele status post recent repair, who presented with weakness. She reports that she has not been feeling well since she had her s urgery. She had her initial surgery a little over a month ago. She had a revision performed about a week ago. She denies any fevers or chills. She denies any abdominal pain. She denies any nausea or vomiting. She denies any diarrhea. She denies any dysuria. She denies any shortness of breath or cough. She denies any chest pain. She has a history of pancytopenia for which she follows with Dr. Canada. A cause for her low blood counts has not yet been determined and she may be going to the [facility] for further evaluation. Subjective/Events-last exam She is feeling a bit better. She is nervous about going home. She would like to wait to be evaluated by physical therapy and possibly get set up with home health. Focused Exam Lactate Level 03/16/21 15:09: Lactic Acid Level 1.33 Objective Exam Vital Signs Vital Signs Date Time Temp Pulse Resp B/P (MAP) Pulse Ox O2 Delivery O2 Flow Rate FiO2 03/19/21 08:00 Room Air 03/19/21 08:00 36.8 79 16 146/72 (96) 91 Capillary Refill : Less Than 3 Seconds General Appearance: No Apparent Distress, WD/WN, Anxious Respiratory: Lungs Clear, Normal Breath Sounds, No Respiratory Distress Cardiovascular: Regular Rate, Rhythm, No Murmur Gastrointestinal: Normal Bowel Sounds, Non Tender, Soft Extremity: Normal Inspection, Pedal Edema Neurologic/Psychiatric: Alert, Oriented x3 Skin: Normal Color, Warm/Dry Results/Procedures Lab Laboratory Tests 03/19/21 04:50 Patient resulted labs reviewed. Imaging: Reviewed Imaging Report Assessment/Plan Assessment and Plan Assess & Plan/Chief Complaint E coli urinary tract infection Pancytopenia Severe neutropenia UA consistent with UTI Urine culture with E coli Transition to Omnicef Blood counts improved Follows with Dr. Nguyen, will see patient on Saturday Cystocele/rectocele status post recent repair Underwent surgery with Dr. Madera CT showed evidence of possible diverticulitis No symptoms of diverticulitis Likely post-op inflammatory changes Consult PT/OT May benefit from HH on discharge DVT prophylaxis: Lovenox, patient refusing Hypokalemia, resolved Hypomagnesemia, resolved Diagnosis/Problems Diagnosis/Problems (1) Urinary tract infection Status: Acute (2) Neutropenia Status: Chronic (3) Pancytopenia Status: Chronic (4) Cystocele with rectocele Status: Acute (5) Hypokalemia Status: Resolved Resolution Date/Time: 03/18/21 @ 15:35 (6) Hypomagnesemia Status: Resolved Resolution Date/Time: 03/18/21 @ 15:35 KARO PAULINO MD March 19, 2021 11:28
[2021-03-19 12:09] VITALS: BP 127/62
[2021-03-19] MEDS: cefTRIAXone FOR IV USE 1,000 MG in WATER (STERILE) FOR INJECTION 10 ML IV SCH (14:52)
[2021-03-19 16:00] VITALS: BP 135/65
[2021-03-19] MEDS: ENOXAPARIN 40 MG/0.4 ML (LOVENOX) SYR SC SCH (18:32)
[2021-03-19 20:00] VITALS: BP 138/63
[2021-03-20] VITALS (9 sets, daily range): BP systolic 118–176; BP diastolic 57–80
[2021-03-20] MEDS: POTASSIUM CL 10MEQ/50ML IVPB 50 ML IV SCH (06:04)
[2021-03-20] MEDS: MAGNESIUM 1 GM/100 ML IVPB 100 ML IV SCH (06:05)
[2021-03-20] MEDS: KCL 20 MEQ TAB (K-DUR) PO SCH (06:05)
[2021-03-20] MEDS: amLODIPine 10 MG (NORVASC) TAB PO SCH (08:36)
[2021-03-20] MEDS: SERTRALINE 100 MG (ZOLOFT) TAB PO SCH (08:36)
[2021-03-20] MEDS: lisINopril 40 MG (PRINIVIL) TABLET PO SCH (08:37)
[2021-03-20] MEDS ORDERED: CEFDINIR 300 MG (OMNICEF) CAP PO SCH (09:00)
[2021-03-20] MEDS ORDERED: CEFD300C3 PO (09:48)
--- NOTE | 2021-03-20 09:53 | D/C HH Face to Face Order ---
D/C Face to Face Orders Instructions for Patient Via [facility], Patient Instructions/FollowUp: Please continue to take your medications as written. Please follow up with your primary care doctor to follow up this Physician to follow Patient: Dr Mario Discharge Diet for Home: No Restrictions Patient Data-Allergies,Ht & Wt Patient Allergies: Coded Allergies: levofloxacin (Verified Allergy, Unknown, hands swelled, 03/16/21) Height (Feet): 5 Height (Inches): 7.00 Weight (Pounds): 170 Home Health Need/Face to Face Date of Face to Face: March 20, 2021 Clinical Findings: Generalized weakness and fatigue I have seen Pt [id number]: Yes Discharged To: Home Diagnosis/Conditions: pancytopenia, UTI Patient is Homebound due to: CognItive deficits Homebound Status Due to the above stated illness, injury or surgical procedure (medical condition or diagnosis) and associated clinical findings, the patient is homebound because of his/her inability to leave home except with aid of a hanna pportive device and/or person AND leaving the home requires a considerable and taxing effort or is medically contraindicated. Pt req the following assistanc: Aid of another person Home Health Nursing Orders Home Health Services Order: Nursing Services, Photogrammetric Tech-Evaluate & Treat, Physical Therapy-Evaluate & Treat Home Health Infusion Therapy Line Start Date: March 16, 2021 Therapy Orders Therapy Orders: OT (must have SN or PT order), Physical Therapy Therapy Specific Orders: Eval assistive deivces, Teach enviro modifications/safety, Gait training, Increase strength/endurance Certify Stmt I certify that this patient is under my care and that I, a nurse practitioner or a physician; a speech correction assistant working with me, had a face to face encounter that - meets the physician face to face encounter requirements with this patient as dated. HENOK MORRISON MD March 20, 2021 09:53
--- NOTE | 2021-03-20 09:56 | Physical Therapy Evaluation ---
PT Evaluation-General Medical Diagnosis Admission Date March 16, 2021 at 17:00 Medical Diagnosis: diverticulitis/UTI/neutropenia Onset Date: March 16, 2021 Therapy Diagnosis Therapy Diagnosis: debility/weakness Height/Weight Height (Feet): 5 Height (Inches): 7.00 Weight (Pounds): 170 Precautions Precautions/Isolations: Fall Prevention, Standard Precautions Referral Physician: Connor Reason for Referral: Evaluation/Treatment Medical History Pertinent Medical History: CAD, COPD, HTN [facility] Reviewed History: Yes Social History Home: [facility] Current Living Status: Alone Entry Into Home: Stairs With Railing PT Steps Into Home: 4 PT Steps Inside Home: 17 Prior Prior Level of Function SCALE: Activities may be completed with or without assistive devices. 6-Yjviqbetso-uqpffsy completes the activity by him/herself with no assistance from a helper. 5-Set-up or Clean-up Assistance-helper sets up or cleans up; patient completes activity. [place] assists only prior to or following the activity. 4-Supervision or Touching Assistance-helper provides verbal cues and/or touch ing/steadying and/or contact guard assistance as patient completes activity. Assistance may be provided throughout the activity or intermittently. 3-Partial/Moderate Assistance-helper does LESS THAN HALF the effort. [place] lifts, holds or supports trunk or limbs, but provides less than half the effort. 2-Substantial/Maximal Assistance-helper does MORE THAN HALF the effort. [place] lifts or holds trunk or limbs and provides more than half the effort. 7-Hlruiegod-roeumt does ALL the effort. Patient does none of the effort to complete the activity. Or, the assistance of 2 or more helpers is required for the patient to complete the activity. If activity was not attempted, code reason: 7-Patient Refused. 9-Not Applicable-not attempted and the patient did not perform the activity before the current illness, exacerbation or injury. 10-Not Attempted due to Environmental Limitations-(lack of equipment, weather restraints, etc.). 88-Not Attempted due to Medical Conditions or Safety Concerns. Bed Mobility: 6 Transfers (B,C,W/C): 6 Gait: 6 Stairs: 6 Indoor Mobility (Ambulation): Independent Stairs: Independent Prior Devices Use: None PT Evaluation-Current Subjective Patient agrees to PT. Reports she has been up independently in hallway prior to PT. Pain Numeric Pain Scale: 0-No Pain Location: No Pain Reported Objective Patient Orientation: Normal For Age ROM/Strength ROM Lower Extremities bilateral LE WFL Strength Lower Extremities 4-/5 grossly bilateral LE Integumentary/Posture Integumentary refer to nursing notes Bowel Incontinence: No Bladder Incontinence: No Posture WFL Neuromuscular (Tone, Coordination, Reflexes) grossly intact Sensory Vision: Functional Hearing: Functional Transfers Roll Left to Right (QC): 6 Sit to Lying (QC): 6 Lying to Sitting/Side of Bed(Q: 6 Sit to Stand (QC): 6 Chair/Ctx-up-Emsjo Xfer(QC): 6 Toilet Transfer (QC): 6 Gait Does the Patient Walk?: Yes Mode of Locomotion: Walk Anticipated Mode of Locomotion: Walk Walk 10 feet (QC): 6 Walk 50 ft with 2 Turns(QC): 6 Walk 150 ft (QC): 6 Walking 10ft/uneven surface-QC: 6 Distance: 300' Gait Assistive Device: None Comments/Gait Description slow, steady, functional gait sequence Wheelchair Training Does the Pt Use a Wheelchair?: No Stairs #of Steps: 12 1 Step (curb) (QC): 6 4 Steps (QC): 6 12 Steps (QC): 6 Balance Sitting Static: Normal Sitting Dynamic: Normal Standing Static: Normal Standing Dynamic: Normal Picking up an Object (QC): 6 Assessment/Needs 75 y.o. female, is currently at independent [facility] with all gross motor skills and does not require skilled therapy intervention. Rehab Potential: Fair PT Plan Treatment/Plan Treatment Plan: Discontinue PT, goals met Treatment Duration: March 20, 2021 Frequency: 1 time per week Estimated Hrs Per Day: .25 hour per day Patient and/or Family Agrees t: Yes Time/GCodes Time In: 821 Time Out: 835 Total Billed Treatment Time: 14 Total Billed Treatment 1 visit EVMod 14 min ELIS PIERRE PT March 20, 2021 09:56
--- NOTE | 2021-03-20 11:02 | Discharge Summary ---
Diagnosis/Chief Complaint Date of Admission March 16, 2021 at 17:00 Date of Discharge Discharge Date: March 20, 2021 Admission Diagnosis Urinary tract infection Primary Care Zaid Mario DO Discharge Diagnosis (1) Urinary tract infection Status: Acute (2) Neutropenia Status: Chronic (3) Pancytopenia Status: Chronic (4) Cystocele with rectocele Status: Acute (5) Hypokalemia Status: Resolved (6) Hypomagnesemia Status: Resolved Discharge Summary Discharge Physical Exam Allergies: Coded Allergies: levofloxacin (Verified Allergy, Unknown, hands swelled, 03/16/21) Vitals & I&Os Vital Signs Date Time Temp Pulse Resp B/P (MAP) Pulse Ox O2 Delivery O2 Flow Rate FiO2 03/20/21 08:06 36.0 85 20 176/77 (110) 92 Room Air Hospital Course Labs (last 24 hrs) Microbiology 03/16/21 Urine Culture - Final, Complete Escherichia coli 03/16/21 Blood Culture - Preliminary, Resulted No growth Patient resulted labs reviewed. Imaging: Reviewed Imaging Report Discharge Home Medications: Active Scripts Active Cefdinir 300 Mg Capsule 300 Mg PO BID Reported Docusate Sodium 100 Mg Capsule 100 Mg PO BID PRN Tylenol Extra Strength (Acetaminophen) 500 Mg Tablet 1,000 Mg PO Q8H PRN Zinc 50 Mg Tablet 50 Mg PO DAILY Vitamin D3 (Cholecalciferol (Vitamin D3)) 25 Mcg Tablet 25 Mcg PO DAILY Ibuprofen 600 Mg Tablet 600 Mg PO QID PRN Lisinopril 20 Mg Tablet 20 Mg PO HS Amlodipine Besylate 10 Mg Tablet 10 Mg PO HS Carvedilol 6.25 Mg Tablet 6.25 Mg PO BID Sertraline HCl 100 Mg Tablet 100 Mg PO HS Instructions to patient/family Please see electronic discharge instructions given to patient. HENOK MORRISON MD March 20, 2021 11:02
[2021-03-20] MEDS ORDERED: NS IV 500 ML 500 ML IV SCH (11:30)
--- NOTE | 2021-03-20 15:16 | Occ Therapy Progress Note ---
Therapy Progress Note OT evaluation received and chart reviewed. OT visited with pt who indicates she is planning on discharging later today. She feels like she is "better" than her PLOF, and has no concerns with completing ADLs upon returning home. OT to d/c from pt from services, no skilled OT indicated at this time as pt is at PLOF. 1, visit [id number] DICKSON CASTANEDA OT March 20, 2021 15:16
--- NOTE | 2021-03-20 22:07 | CONSULTATION REPORT ---
DATE OF SERVICE: 03/20/2021 The patient is admitted to room 411. IMPRESSION: 1. Urinary tract infection due to E. coli. 2. Pancytopenia of undetermined etiology. A bone marrow aspiration and biopsy done in 2019 was unremarkable. 3. Autoimmune disorder, probably causing the pancytopenia. 4. Recent AP repair for cystocele and rectocele with wound dehiscence, status post I and D and revision of AP repair. RECOMMENDATIONS: 1. Continue management of UTI as you are doing. 2. Because of significant anemia and symptoms, I would recommend transfusion with 1 unit of packed red blood cells. 3. With regards to the neutropenia, I would continue surveillance. Once she recovers from her surgery, I would recommend consultation at a tertiary center regarding the pancytopenia and the possible autoimmune etiology. BRIEF HISTORY: The patient is a 75-year-old female who was evaluated in mid 2019 with abnormal blood counts and underwent a bone marrow aspiration and biopsy. This showed slightly hypercellular marrow with active trilineage hematopoiesis. She had a biopsy proved psoriasis from her feet. She was evaluated by rheumatology at [facility] and was on immunosuppression. Recently, she underwent an BNP repair for cystocele and rectocele, but had wound dehiscence requiring a revision. She was admitted to the hospital with significant pain, weakness and was found to have a urinary tract infection. She was admitted to the hospital for further evaluation and management. A hematology consultation was requested because of significant pancytopenia including grade IV neutropenia. PAST MEDICAL HISTORY: Significant for hypertension for 5 to 6 years. Hypercholesterolemia about the same time. She has valvular heart disease with moderate to severe mitral regurgitation. History of arthritis involving several joints. Psoriasis with lesions on her feet. She has borderline COPD and has used tobacco until now. Obstructive sleep apnea diagnosed in October 2019 requiring CPAP. PAST SURGICAL HISTORY: Include tonsillectomy in childhood. TAHBSO 30 years ago and on estrogen replacement therapy. Cholecystectomy approximately 20 years ago. Bilateral cataract surgeries in early 2019. SOCIAL HISTORY: The patient is and lives alone in [place], [place]. She has three children, an adopted son and daughter as well as a biological daughter. All of her children live in [place], [place]. 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 She has smoked 5 to 10 cigarettes daily since young age, but quit for 20 years and restarted in 2003. She uses alcohol socially and denied any recreational drug use. PHYSICAL EXAMINATION: GENERAL: Showed an elderly female, thin and weak appearing, awake and oriented, in no acute distress. HEENT: Normocephalic, extraocular muscles intact, conjunctivae pale, oral mucosa moist. NECK: Supple, with no JVD. No lymphadenopathy palpable in cervical, supraclavicular, or axillary regions. CHEST: Symmetrical. LUNGS: With slightly diminished breath sounds bilaterally without wheezes or rales. CARDIOVASCULAR: Regular in rate and rhythm with a grade II early systolic murmur. ABDOMEN: Soft, mild tenderness in the lower quadrants without guarding or rebound, no hepatosplenomegaly or other masses palpable. EXTREMITIES: Showed no edema. Hyperkeratotic skin lesion on both feet with the right more than the left. NEUROLOGIC: Grossly intact without focal motor deficits. LABORATORY DATA: CBC done today showed WBC 1.5, hemoglobin 7.1, platelet count 80,000 with neutrophil count 0.1 and lymphocyte count 0.7. Percentage of immature platelet fraction was 4.8. BMP showed normal electrolytes. BUN was 4 and creatinine 0.62 with GFR more than 60 mL per minute. Liver function studies done on 03/16/2021 was within normal limits. Urinalysis done at the time of admission was positive for nitrite with more than 100 WBCs and few bacteria. Urine culture showed more than 100,000 colonies of E. coli, which was resistant to ampicillin, cefazolin and trimethoprim sulfa. Thank you for allowing me to participate in this patient's care. I will follow the patient with you and make appropriate recommendations. Job ID: [id number] DocumentID: [id number] Dictated Date: 03/20/2021 16:28:29 Ethyl Blender Date: 03/20/2021 22:07:03 Dictated By: JOSE ALBERTO LORA MD
== END 2021-03-20 16:30 | disposition home health service (06) | DRG 690 ==
LOC: EDUNIT# 14:59 → ER 15:01 → 4TH 17:00
PROVIDERS: ADMIT Internal Medicine; ATTEND Internal Medicine
DX: N39.0 Urinary tract infection, site not specified (principal); D61.818 Other pancytopenia; M35.9 Systemic involvement of connective tissue, unspecified; D70.9 Neutropenia, unspecified; B96.20 Unspecified Escherichia coli [E. coli] as the cause of diseases classified elsewhere; E87.6 Hypokalemia; E83.42 Hypomagnesemia; I34.0 Nonrheumatic mitral (valve) insufficiency; I10 Essential (primary) hypertension; I25.10 Atherosclerotic heart disease of native coronary artery without angina pectoris; J44.9 Chronic obstructive pulmonary disease, unspecified; M19.91 Primary osteoarthritis, unspecified site; F32.9 Major depressive disorder, single episode, unspecified; G47.33 Obstructive sleep apnea (adult) (pediatric); F17.210 Nicotine dependence, cigarettes, uncomplicated; Z88.1 Allergy status to other antibiotic agents; Z79.891 Long term (current) use of opiate analgesic; Z79.52 Long term (current) use of systemic steroids
CPT/HCPCS: 36415; 71045; 74177; 80048; 80053; 81000; 83605; 83735; 85025; 86850; 86900; 86901; 86920; 87040; 87077; 87088; 87186; 96374; 96375

== ENCOUNTER 2021-04-18 14:00 | Outpatient (RCR) | payer MEDICARE ==
[2021-03-16 14:17] LABS: BASOPHILS % (AUTO) 0 % (0-10); HEMATOCRIT 29 % (35-52); MEAN CORPUSCULAR VOLUME 86 fL (80-99)
[2021-03-16 14:19] LABS: EOSINOPHILS % (AUTO) 0 % (0-10); HEMOGLOBIN 8.7 g/dL (11.5-16.0); LYMPHOCYTES # (AUTO) 0.7 10^3/uL (1.0-4.0); LYMPHOCYTES % (AUTO) 33 % (12-44); MEAN CORPUSCULAR HEMOGLOBIN 26 pg (25-34); MEAN CORPUSCULAR HGB CONC 30 g/dL (32-36); MONOCYTES # (AUTO) 1.1 10^3/uL (0.0-1.0); MONOCYTES % (AUTO) 49 % (0-12); NEUTROPHILS # (AUTO) 0.3 10^3/uL (1.8-7.8); NEUTROPHILS % (AUTO) 14 % (42-75); PLATELET COUNT 91 10^3/uL (130-400); WHITE BLOOD COUNT 2.2 10^3/uL (4.3-11.0)
[~2021-04-18 14:00] MED LIST changes: +ACET-2267 PO; +CEFD300C3 PO; +CHOL100045 PO; +DOCU100C37 PO; +IBUP-1773 PO; -LACTATED RINGERS 1,000 ML IV ONE; -OMEP40CA27 PO; +OMEP40CA6 PO; +ZINC50TA58 PO
[2021-04-18 14:10] LABS: BASOPHILS % (AUTO) 0 % (0-10); EOSINOPHILS % (AUTO) 0 % (0-10); HEMOGLOBIN 8.1 g/dL (11.5-16.0); MEAN CORPUSCULAR VOLUME 86 fL (80-99)
[2021-04-18 14:12] LABS: HEMATOCRIT 26 % (35-52); LYMPHOCYTES # (AUTO) 0.8 10^3/uL (1.0-4.0); LYMPHOCYTES % (AUTO) 44 % (12-44); MEAN CORPUSCULAR HEMOGLOBIN 27 pg (25-34); MEAN CORPUSCULAR HGB CONC 31 g/dL (32-36); MEAN PLATELET VOLUME 9.4 fL (9.0-12.2); MONOCYTES # (AUTO) 0.8 10^3/uL (0.0-1.0); MONOCYTES % (AUTO) 42 % (0-12); NEUTROPHILS # (AUTO) 0.3 10^3/uL (1.8-7.8); NEUTROPHILS % (AUTO) 14 % (42-75); PLATELET COUNT 96 10^3/uL (130-400); WHITE BLOOD COUNT 1.8 10^3/uL (4.3-11.0)
[2021-04-18 14:32] LABS: ALANINE AMINOTRANSFERASE 7 U/L (0-55); ALBUMIN 3.5 GM/DL (3.2-4.5); ALKALINE PHOSPHATASE 78 U/L (40-136); BILIRUBIN,TOTAL 0.3 MG/DL (0.1-1.0); BUN/CREATININE RATIO 15; CALCIUM 9.4 MG/DL (8.5-10.1); CARBON DIOXIDE 23 MMOL/L (21-32); CHLORIDE 105 MMOL/L (98-107); CREATININE SERUM 0.79 MG/DL (0.60-1.30); GFR ESTIMATED > 60; GLUCOSE 96 MG/DL (70-105); POTASSIUM 3.5 MMOL/L (3.6-5.0); SODIUM 139 MMOL/L (135-145); TOTAL PROTEIN 7.3 GM/DL (6.4-8.2)
[2021-05-24] MEDS ORDERED: L. A1CAP11 PO (23:38)
[2021-05-24] MEDS ORDERED: ONDA4TAB11 PO (23:38)
== END 2021-06-14 | disposition home or self-care (01) ==
LOC: ONC 14:00
PROVIDERS: ATTEND Internal Medicine Hematology & Oncology
DX: D61.818 Other pancytopenia (principal); I10 Essential (primary) hypertension; E78.2 Mixed hyperlipidemia; I08.0 Rheumatic disorders of both mitral and aortic valves; L40.9 Psoriasis, unspecified; D69.6 Thrombocytopenia, unspecified; Z79.899 Other long term (current) drug therapy
CPT/HCPCS: 85025; G0463; 80053; 99213

== ENCOUNTER 2021-05-19 12:31 | Outpatient (CLI) | payer MEDICARE ==
[~2021-05-19] VITALS: Ht 170.2 cm; Wt 63.5 kg
[2021-05-19 12:38] VITALS: BP 169/78
[2021-05-19] MEDS ORDERED: EPINEPHrine INJECTION 1 MG/ML AMP IM PRN (12:45)
[2021-05-19] MEDS ORDERED: CASIRIVIMAB/IMDEVIMAB 1,200 MG in NS (IVPB) 250 ML IV ONE (12:45)
[2021-05-19] MEDS ORDERED: diphenhydrAMINE 50 MG/ML INJ (BENADRYL) IV PRN (12:45)
[2021-05-19 13:52] VITALS: BP 167/78
== END 2021-05-19 14:43 ==
LOC: INFUSION 12:31
PROVIDERS: ATTEND Nurse Practitioner Family
DX: Z23 Encounter for immunization (principal); U07.1 COVID-19

== ENCOUNTER 2021-05-24 21:05 | Emergency (ER) | payer MEDICARE ==
[~2021-05-24] VITALS: Ht 170 cm; Wt 62.5 kg
[2021-05-24] MEDS ORDERED: LACTATED RINGERS 1,000 ML IV ONE (22:15)
[2021-05-24] MEDS ORDERED: ONDANSETRON 4 MG/2 ML (SDV) Z0FRAN IVP ONE (22:15)
[2021-05-24 22:32] LABS: EOSINOPHILS % (AUTO) 0 % (0-10); HEMOGLOBIN 8.8 g/dL (11.5-16.0); PLATELET COUNT 40 10^3/uL (130-400)
[2021-05-24 22:34] LABS: BASOPHILS % (AUTO) 0 % (0-10); HEMATOCRIT 29 % (35-52); LYMPHOCYTES # (AUTO) 0.6 10^3/uL (1.0-4.0); LYMPHOCYTES % (AUTO) 12 % (12-44); MEAN CORPUSCULAR HEMOGLOBIN 27 pg (25-34); MEAN CORPUSCULAR HGB CONC 31 g/dL (32-36); MEAN CORPUSCULAR VOLUME 88 fL (80-99); MEAN PLATELET VOLUME 10.5 fL (9.0-12.2); MONOCYTES # (AUTO) 2.5 10^3/uL (0.0-1.0); MONOCYTES % (AUTO) 53 % (0-12); NEUTROPHILS # (AUTO) 1.5 10^3/uL (1.8-7.8); NEUTROPHILS % (AUTO) 31 % (42-75); WHITE BLOOD COUNT 4.8 10^3/uL (4.3-11.0)
[2021-05-24 22:41] LABS: BILIRUBIN,URINE NEGATIVE (NEGATIVE); CLARITY,URINE CLEAR; COLOR,URINE YELLOW; GLUCOSE, URINE (UA) NEGATIVE (NEGATIVE); KETONES,URINE NEGATIVE (NEGATIVE); LEUKOCYTE ESTERASE ,URINE NEGATIVE (NEGATIVE); NITRITE,URINE NEGATIVE (NEGATIVE); PROTEIN,URINE 1+ (NEGATIVE)
[2021-05-24 22:50] LABS: ALBUMIN 3.4 GM/DL (3.2-4.5); POTASSIUM 3.7 MMOL/L (3.6-5.0)
[2021-05-24 22:52] LABS: CALCIUM 9.1 MG/DL (8.5-10.1)
[2021-05-24 22:53] LABS: LYMPHOCYTES % (MANUAL) 21 %; MONOCYTES % (MANUAL) 47 %; NEUTROPHILS % (MANUAL) 32 %; TOTAL PROTEIN 7.1 GM/DL (6.4-8.2)
[2021-05-24 22:53] LABS: BACTERIA,URINE NEGATIVE /HPF
[2021-05-24 22:54] LABS: RBC MORPH NORMAL
[2021-05-24 22:56] LABS: CREATININE SERUM 0.72 MG/DL (0.60-1.30)
[2021-05-24 22:59] LABS: MAGNESIUM 1.9 MG/DL (1.6-2.4)
[2021-05-24] MEDS ORDERED: L. A1CAP11 PO (23:38)
[2021-05-24] MEDS ORDERED: ONDA4TAB11 PO (23:38)
--- NOTE | 2021-05-24 23:38 | ED General ---
General Chief Complaint: Cough/Cold/Flu Symptoms Stated Complaint: COVID POS / DIARRHEA / COUGH / SOB Nursing Triage Note: PATIENT BROUGHT BACK TO ER ROOM 9 WITH C/O COVID POSITIVE SINCE LAST SATURDAY. PT C/O DECREASED APPETITE WITH DIARRHEA AND IS FEELING WEAKER THAN NORMAL. PT WAS INCONTINENT TO BOWEL UPON ARRIVAL IN ED. Nursing Sepsis Screen: Possible Sepsis Risk Source of Information: Patient (FAIR HISTORIAN, SOME CONFLICTING INFORMATION FROM PT, AFTER DAUGHTER GAVE ADDITIONAL INFORMATION) History of Present Illness Date Seen by Provider: May 24, 2021 Time Seen by Provider: 22:12 Initial Comments PT ARRIVES VIA POV FROM HOME FAMILY CALLED EMS, THEN DECLINED EMS TRANSPORT AND BROUGHT PT BY POV PT HAS BEEN SICK SINCE LAST Saturday05/17/21 TESTED + FOR COVID-19 ON SATURDAY--OUTPATIENT TEST ORDERED BY DR. MARTINEZ'S OFFICE. PT DID RECEIVE OUTPATIENT REGEN-COV INFUSION ON SATURDAY. PT HAS NOT BEEN SEEN BY HIM OR ANYONE ELSE FOR THIS PROBLEM PT C/O GENERALIZED WEAKNESS STATES SHE WAS NOT ABLE TO SLEEP LAST NIGHT AND HAS BEEN IN BED ALL DAY TODAY DAUGHTER HAS REPORTED THAT PT HAS URINATED IN THE BED A FEW TIMES TODAY BECAUSE SHE COULD NOT GET OUT OF BED. PT C/O DIARRHEA--PT REPORTS ONLY 2 EPISODES OF DIARRHEA TODAY. DAUGHTER HAS REPORTED THAT PT HAS HAD "LOTS" OF DIARRHEA, AND TONIGHT SHE WAS HELPING PT IN THE SHOWER AND SHE HAD DIARRHEA WHILE IN THE SHOWER. PT IS ALSO COVERED IN DIARRHEA STOOL ON ARRIVAL PT DENIES NAUSEA/VOMITING. PT STATES SHE HAS BEEN DRINKING FLUIDS WELL, BUT HAS NOT BEEN EATING MUCH STATES SHE IS URINATING A NORMAL AMOUNT PT HAS HAD A MILD COUGH PT DENIES SHORTNESS OF BREATH PT DENIES CHEST PAIN DENIES FEVER/SWEATS/CHILLS AT HOME HAS HAD A MILD HEADACHE NO BODY ACHES + LOSS OF TASTE AND SMELL SON-IN-LAW AND GRANDDAUGHTER ALSO + FOR COVID-19 AND SON IN LAW HAD AN OUTPATIENT INFUSION OF REGEN-COV WHEN PT HAD HERS ON SATURDAY. DAUGHTER REPORTS THAT PT WAS DOING BETTER BY SATURDAY, BUT THEN ON SATURDAY STARTED TO GRADUALLY DETERIORATE WITH GENERALIZED WEAKNESS HAS NOT TAKEN ANYTHING FOR SYMPTOMS PT HAS PREVIOUSLY BEEN VACCINATED FOR COVID-19 NO CHRONIC RESPIRATORY PROBLEMS PT DOES HAVE CHRONIC PANCYTOPENIA--UNKNOWN CAUS PT LIVES ALONE PCP: DR. MARTINEZ Allergies and Home Medications Allergies Coded Allergies: levofloxacin (Verified Allergy, Unknown, hands swelled, 05/19/21) Home Medications Acetaminophen 500 Mg Tablet, 1,000 MG PO Q8H PRN for PAIN-MILD (1-4), (Reported) Amlodipine Besylate 10 Mg Tablet, 10 MG PO HS, (Reported) Carvedilol 6.25 Mg Tablet, 6.25 MG PO BID, (Reported) Cefdinir 300 Mg Capsule, 300 MG PO BID Prescribed by: HENOK MORRISON on 03/20/21 0948 Cholecalciferol (Vitamin D3) 25 Mcg Tablet, 25 MCG PO DAILY, (Reported) Docusate Sodium 100 Mg Capsule, 100 MG PO BID PRN for CONSTIPATION-1ST LINE, (Reported) Ibuprofen 600 Mg Tablet, 600 MG PO QID PRN for PAIN-MILD (1-4), (Reported) L. Acidophilus/Pectin, [place] 1 Each Capsule, 2 EACH PO QID Prescribed by: FAHAD VALLE on 05/24/21 2338 Lisinopril 20 Mg Tablet, 20 MG PO HS, (Reported) Ondansetron 4 Mg Tab.rapdis, 4 MG PO Q4H Prescribed by: FAHAD VALLE on 05/24/21 2338 Sertraline HCl 100 Mg Tablet, 100 MG PO HS, (Reported) Zinc 50 Mg Tablet, 50 MG PO DAILY, (Reported) Patient Home Medication List Home Medication List Reviewed: Yes Review of Systems Review of Systems Constitutional: see HPI; No fever; malaise, weakness EENTM: see HPI Respiratory: cough; No short of breath Cardiovascular: no symptoms reported; No chest pain Gastrointestinal: see HPI; No abdominal pain; diarrhea, loss of appetite; No nausea, No vomiting Genitourinary: see HPI Musculoskeletal: no symptoms reported Skin: no symptoms reported Psychiatric/Neurological: See HPI, Headache; Denies Numbness, Denies Paresthesia Hematologic/Lymphatic: See HPI, Anemia Immunological/Allergic: no symptoms reported Past Djpckns-Tzcqug-Gtxtus Hx Patient Social History Tobacco Use?: No Smoking Status: Never a Smoker Smokeless Tobacco Frequency: Never a User Use of E-Cig and/or Vaping dev: No Use of E-Cig and/or Vaping Yaya: Never a User Substance use?: No Alcohol Use?: No Pt feels they are or have been: No Immunizations Up To Date First/Initial COVID19 Vaccinat: JANUARY 2021 Second COVID19 Vaccination Mesfin: JANUARY 2021 COVID19 Vaccine Track Laminating Machine Tender: LINA Seasonal Allergies Seasonal Allergies: No Past Medical History Surgery/Hospitalization HX: ANTERIOR/POSTERIOR REPAIR, WITH WOUND DEHISCENCE WITH I&D AND REVISION OF A/P REPAIR BILATERAL CATARACT SURGERY 12/2019 COLONOSCOPIES BONE MARROW BIOPSY 2019 Surgeries: Yes Adenoidectomy, Bladder Surgery, Eye Surgery, Gallbladder, Hysterectomy, Tonsillectomy Respiratory: Yes COPD Currently Using CPAP: No Currently Using BIPAP: No Cardiac: Yes (CAROTID DISEASE) Coronary Artery Disease, Hypertension Neurological: No SKIN DRIER History: Hysterectomy, Menopausal Genitourinary: Yes (BLADDER PROLAPSE--S/P A/P REPAIR WITH REVISION) UTI-Chronic Gastrointestinal: Yes Diverticulosis Musculoskeletal: Yes (CHRONIC GENERALIZED PAIN ) Arthritis Endocrine: No HEENT: Yes (BILAT CATARACT SURGERY 12/2019) Cataract Cancer: Yes Skin Did You Recieve Any Treatments: Yes What Type of Treatment Did You: Surgical Intervention Psychosocial: Yes Depression Integumentary: Yes (PANCYTOPENIA) Eczema Blood Disorders: No Family Medical History Heart Disease, Cancer, Stroke Noncontributory Physical Exam Vital Signs Vital Signs - First Documented Capillary Refill : Less Than 3 Seconds Height, Weight, BMI Height: 5'7.00" Weight: 170lbs. oz. 77.952132zt; 21.00 BMI Method:Stated General Appearance: No Apparent Distress, WD/WN HEENT: PERRL/EOMI, Normal ENT Inspection, Pharynx Normal, Moist Mucous Membranes Neck: Normal Inspection Respiratory: Normal Breath Sounds, No Accessory Muscle Use, No Respiratory Distress Cardiovascular: Regular Rate, Rhythm, No Edema, No JVD, No Murmur, Normal Peripheral Pulses Gastrointestinal: Normal Bowel Sounds, No Organomegaly, No Pulsatile Mass, Non Tender, Soft Back: No CVA Tenderness Extremity: Normal Capillary Refill, Normal Inspection, No Pedal Edema Neurologic/Psychiatric: Alert, Oriented x3, No Motor/Sensory Deficits, psychologists II- XII Norm as Tested, Other (PT WITH SOME GENERALIZED WEAKNESS) Skin: Warm/Dry, Pallor; No Rash Focused Exam Lactate Level 05/24/21 22:14: Lactic Acid Level 1.50 Lactic Acid Level Laboratory Tests Test 05/24/21 22:14 Lactic Acid Level 1.50 MMOL/L (0.50-2.00) Progress/Results/Core Measures Suspected Sepsis Recent Fever Within 48 Hours: Yes Infection Criteria Present: Documented Infection New/Unexplained Altered Menta: No Sepsis Screen: Possible Sepsis Risk SIRS Temperature: Pulse: 106 Respiratory Rate: 18 Laboratory Tests 05/24/21 22:14: White Blood Count 4.8 Blood Pressure 156 /80 Mean: 105 05/24/21 22:14: Lactic Acid Level 1.50 Laboratory Tests 05/24/21 22:14: Creatinine 0.72, Platelet Count 40L, Total Bilirubin 1.0 Results/Orders Lab Results Laboratory Tests Test 05/24/21 22:14 05/24/21 22:27 Range/Units White Blood Count 4.8 4.3-11.0 10^3/uL Red Blood Count 3.27 L 3.80-5.11 10^6/uL Hemoglobin 8.8 L 11.5-16.0 g/dL Hematocrit 29 L 35-52 % Mean Corpuscular Volume 88 80-99 fL Mean Corpuscular Hemoglobin 27 25-34 pg Mean Corpuscular Hemoglobin Concent 31 L 32-36 g/dL Red Cell Distribution Width 19.0 H 10.0-14.5 % Platelet Count 40 L 130-400 10^3/uL Mean Platelet Volume 10.5 9.0-12.2 fL Immature Granulocyte % (Auto) 4 % Neutrophils (%) (Auto) 31 L 42-75 % Lymphocytes (%) (Auto) 12 12-44 % Monocytes (%) (Auto) 53 H 0-12 % Eosinophils (%) (Auto) 0 0-10 % Basophils (%) (Auto) 0 0-10 % Neutrophils # (Auto) 1.5 L 1.8-7.8 10^3/uL Lymphocytes # (Auto) 0.6 L 1.0-4.0 10^3/uL Monocytes # (Auto) 2.5 H 0.0-1.0 10^3/uL Eosinophils # (Auto) 0.0 0.0-0.3 10^3/uL Basophils # (Auto) 0.0 0.0-0.1 10^3/uL Immature Granulocyte # (Auto) 0.2 H 0.0-0.1 10^3/uL Neutrophils % (Manual) 32 % Lymphocytes % (Manual) 21 % Monocytes % (Manual) 47 % Percent Immature Platelet Fraction 4.3 0.0-7.6 % Blood Morphology Comment NORMAL Sodium Level 136 135-145 MMOL/L Potassium Level 3.7 3.6-5.0 MMOL/L Chloride Level 98 98-107 MMOL/L Carbon Dioxide Level 24 21-32 MMOL/L Anion Gap 14 5-14 MMOL/L Blood Urea Nitrogen 14 7-18 MG/DL Creatinine 0.72 0.60-1.30 MG/DL Estimat Glomerular Filtration Rate 79 BUN/Creatinine Ratio 19 Glucose Level 103 70-105 MG/DL Lactic Acid Level 1.50 0.50-2.00 MMOL/L Calcium Level 9.1 8.5-10.1 MG/DL Corrected Calcium 9.6 8.5-10.1 MG/DL Magnesium Level 1.9 1.6-2.4 MG/DL Total Bilirubin 1.0 0.1-1.0 MG/DL Aspartate Amino Transf (AST/SGOT) 25 5-34 U/L Alanine Aminotransferase (ALT/SGPT) 23 0-55 U/L Alkaline Phosphatase 82 40-136 U/L Total Protein 7.1 6.4-8.2 GM/DL Albumin 3.4 3.2-4.5 GM/DL Amylase Level 45 25-125 U/L Lipase 11 8-78 U/L Urine Color YELLOW Urine Clarity CLEAR Urine pH 6.0 5-9 Urine Specific [place] 1.010 L 1.016-1.022 Urine Protein 1+ H NEGATIVE Urine Glucose (UA) NEGATIVE NEGATIVE Urine Ketones NEGATIVE NEGATIVE Urine Nitrite NEGATIVE NEGATIVE Urine Bilirubin NEGATIVE NEGATIVE Urine Urobilinogen 0.2 < = 1.0 MG/DL Urine Leukocyte Esterase NEGATIVE NEGATIVE Urine RBC (Auto) TRACE-I NEGATIVE Urine RBC NONE /HPF Urine WBC NONE /HPF Urine Squamous Epithelial Cells 2-5 /HPF Urine Renal Epithelial Cells NONE /HPF Urine Crystals NONE /LPF Urine Bacteria NEGATIVE /HPF Urine Casts NONE /LPF Urine Mucus NEGATIVE /LPF Urine Culture Indicated NO My Orders Orders - FAHAD VALLE DO Ed Iv/Invasive Line Start (05/24/21 22:11) Ekg Tracing (05/24/21 22:11) Monitor-Rhythm Ecg Trace Only (05/24/21 22:11) Straight Cath For Spec.-Adult (05/24/21 22:11) Amylase (05/24/21 22:11) Cbc With Automated Diff (05/24/21 22:11) Comprehensive Metabolic Panel (05/24/21 22:11) Lactic Acid Analyzer (05/24/21 22:11) Lipase (05/24/21 22:11) Magnesium (05/24/21 22:11) Ua Culture If Indicated (05/24/21 22:11) Chest 1 View, Ap/Pa Only (05/24/21 22:11) Ed Iv/Invasive Line Start (05/24/21 22:11) Lactated Ringers (Lr 1000 Ml Iv Solution (05/24/21 22:15) Ondansetron Injection (Zofran Injectio (05/24/21 22:15) Manual Differential (05/24/21 22:14) Medications Given in ED Current Medications Medications Dose Ordered Sig/Fazal Route Start Time Stop Time Status Last Admin Dose Admin Lactated Ringer's 1,000 ml @ 0 mls/hr Q0M ONCE IV 05/24/21 22:15 05/24/21 22:16 DC 05/24/21 22:29 1,000 MLS/HR Ondansetron HCl 4 mg ONCE ONCE IVP 05/24/21 22:15 05/24/21 22:16 DC 05/24/21 22:30 4 MG Vital Signs/I&O 05/24/21 05/24/21 05/24/21 05/25/21 22:00 22:00 22:38 00:00 Temp 37.8 37.8 37.8 Pulse 106 93 89 Resp 18 18 14 B/P (MAP) 156/80 (105) 155/72 136/76 (105) Pulse Ox 98 96 98 O2 Delivery Room Air Room Air Room Air Room Air 05/25/21 00:00 Intake Total 1000 ml Balance 1000 ml Capillary Refill : Less Than 3 Seconds Blood Pressure Mean: 105 Progress Note : Progress Note PLACED IN ISOLATION ROOM PPE WORN AT ALL TIMES GIVEN IV FLUIDS NO DETERIORATION IN PT'S CONDITION DURING ER STAY NO HYPOXIA NO DYSPNEA NO COUGH NO DIARRHEA AT THIS TIME PT DOES NOT MEET CRITERIA FOR ADMIT PT WITH CHRONIC PANCYTOPENIA, OTHER LAB IS ALL NORMAL INCLUDING UA CXR DOES NOT SHOW PNEUMONIA. ECG Initial ECG Impression Date: May 24, 2021 Initial ECG Impression Time: 22:20 Initial ECG Rate: 104 Initial ECG Rhythm: S.Tach Diagnostic Imaging Comments CXR--NO ACUTE PROCESS, PENDING RADIOLOGIST REVIEW Reviewed: Reviewed by Me Departure Impression Primary Impression: COVID-19 virus infection Additional Impressions: Diarrhea due to COVID-19 generalized weakness due to covid chronic pancytopenia Disposition: 01 HOME, SELF-CARE Condition: Stable Departure-Patient Inst. Decision time for Depature: 23:30 Referrals: TIFFANI MARTINEZ DO (PCP/Family) Primary Care Physician Patient Instructions: Preventing the Spread of an Infectious Disease, COVID-19 (DC), Recovery After COVID-19 Add. Discharge Instructions: LOTS OF CLEAR LIQUIDS--WATER, BROTH, JELLO, GATORADE BRATS DIET--BANANAS, RICE, APPLESAUCE, TOAST, SALTINES TYLENOL AND MOTRIN NEEDED FOR PAIN OR FEVER FOLLOW UP WITH DR. MARTINEZ THIS WEEK FOR FURTHER CARE, RETURN TO ER IF WORSE CONTINUE QUARANTINE FOR AT LEAST 2 WEEKS, POSSIBLY LONGER IF YOU ARE STILL HAVING SYMPTOMS All discharge instructions reviewed with patient and/or family. Voiced understanding. Scripts Ondansetron (Ondansetron Odt) 4 Mg Tab.rapdis 4 MG PO Q4H for Nausea/Vomiting, #10 TAB Prov: FAHAD VALLE DO 05/24/21 L. Acidophilus/Pectin, [place] (Acidophilus Capsule) 1 Each Capsule 2 EACH PO QID, #40 CAP Prov: FAHAD VALLE DO 05/24/21 FAHAD VALLE DO May 24, 2021 23:38
[2021-05-25] VITALS: BP 136/76
--- NOTE | 2021-05-25 07:02 | Diagnostic Imaging Report ---
EXAMINATION: Chest 1 view HISTORY: DYSPNEA COMPARISON: 03/16/2021 FINDINGS: Heart size and pulmonary vasculature are normal. Stable coarse interstitial opacities in the lung bases. No new consolidation, pleural effusion, or pneumothorax. The osseous structures are intact. IMPRESSION: 1. Stable coarse interstitial opacities in the lung bases which could represent atelectasis or scarring. No new acute radiographic abnormality in the chest. Dictated by: Dictated on workstation # [id number]
== END 2021-05-25 00:01 | disposition home or self-care (01) ==
LOC: EDUNIT# 21:05 → ER 21:06
DX: U07.1 COVID-19 (principal); R53.1 Weakness; D61.818 Other pancytopenia; J44.9 Chronic obstructive pulmonary disease, unspecified; I10 Essential (primary) hypertension; F32.9 Major depressive disorder, single episode, unspecified; Z79.899 Other long term (current) drug therapy
CPT/HCPCS: 36415; 51701; 71045; 80053; 81000; 82150; 83605; 83690; 83735; 85007; 85027; 93005; 93041; 96361; 96374

== ENCOUNTER 2021-06-07 08:30 | Outpatient (CLI) | payer MEDICARE ==
[~2021-06-07] VITALS: Ht 170.2 cm; Wt 62.5 kg
[~2021-06-07 08:30] MED LIST changes: +L. A1CAP11 PO; +ONDA4TAB11 PO
[2021-06-07] MEDS ORDERED: D5 NS W/KCL 40 MEQ/L 1,000 ML IV ONE (09:00)
[2021-06-07] MEDS ORDERED: NS IV 500 ML 500 ML IV SCH (09:00)
[2021-06-07 09:10] LABS: HEMOGLOBIN 7.4 g/dL (11.5-16.0)
[2021-06-07] MEDS ORDERED: POTASSIUM CHLORIDE INJ 40 MEQ in D5 NS 1000 ML IV SOLUTION 1,000 ML IV ONE (10:00)
[2021-06-07 10:25] VITALS: BP 157/72
[2021-06-07 10:40] VITALS: BP 161/71
[2021-06-07 12:30] VITALS: BP 159/80
[2021-06-07 12:40] LABS: HEMOGLOBIN 7.6 g/dL (11.5-16.0)
[2021-06-07 13:05] VITALS: BP 159/80
[2021-06-07 13:20] VITALS: BP 152/68
[2021-06-07 16:23] VITALS: BP 165/83
== END 2021-06-07 15:25 ==
LOC: SDC 08:30
PROVIDERS: ATTEND Nurse Practitioner Family
DX: D61.818 Other pancytopenia (principal); E86.0 Dehydration; E79.0 Hyperuricemia without signs of inflammatory arthritis and tophaceous disease; R09.02 Hypoxemia
CPT/HCPCS: 36430; 85014; 85018; 86850; 86900; 86901; 86920; P9016; 36415

== ENCOUNTER 2021-08-17 10:52 | Outpatient (CLI) | payer MEDICARE ==
[~2021-08-17] VITALS: Ht 170.2 cm; Wt 54.4 kg
[~2021-08-17 10:52] MED LIST changes: +CHOL10004 PO; -CHOL100045 PO; -DCS100C PO; +DOCU-239 PO; -LEFL10TA16 PO; +LEFL10TA20 PO
[2021-08-17] MEDS ORDERED: LACT1CAP39 PO ×2 (11:19)
[2021-08-17] MEDS ORDERED: CIPR-226 PO ×2 (11:19)
[2021-08-17] MEDS ORDERED: PRED5TAB PO ×2 (11:19)
[2021-08-17] MEDS ORDERED: COLE1TAB PO ×2 (11:19)
[2021-08-17] MEDS ORDERED: PRED5DRO24 OP ×2 (11:19)
[2021-08-17] MEDS ORDERED: PLTR10OP OP ×2 (11:19)
[2021-08-17] MEDS ORDERED: LEFL10TA20 PO ×2 (11:19)
[2021-08-17] MEDS ORDERED: CYPR4TAB41 PO ×2 (11:19)
[2021-08-17] MEDS ORDERED: CARB1TAB19 PO ×2 (11:19)
[2021-08-18] MEDS ORDERED: ACHD5005 PO ×2 (11:36)
== END 2021-08-17 11:26 | disposition home or self-care (01) ==
LOC: PREOP 10:52
PROVIDERS: ATTEND Surgery
DX: Z01.818 Encounter for other preprocedural examination (principal)

== ENCOUNTER 2021-08-18 09:40 | Day surgery (SDC) | payer MEDICARE ==
[~2021-08-18] VITALS: Ht 170.2 cm; Wt 54.4 kg
[2021-08-18] VITALS (8 sets, daily range): BP systolic 117–184; BP diastolic 57–92
[~2021-08-18 09:40] MED LIST changes: +CARB1TAB19 PO; +CIPR-226 PO; +CYPR4TAB41 PO; +LACT1CAP39 PO; +PLTR10OP OP; +PRED5DRO24 OP
[2021-08-18] MEDS ORDERED: ceFAZolin 2 GM IV Premixed 50 ML IV ONE (10:30)
[2021-08-18] MEDS ORDERED: LACTATED RINGERS 1,000 ML IV PRN (10:30)
[2021-08-18] MEDS ORDERED: 0.9% SODIUM CHLORIDE PF INJ 20 ML VIAL ONE (10:44)
[2021-08-18] MEDS ORDERED: HEParin (CENTRAL IV FLUSH) 500 UNIT/5 ML SYR ONE (10:45)
[2021-08-18] MEDS ORDERED: LIDOCAINE/EPI 1%-1:200,000 (XYLOCAINE) 30 ML VIAL ONE (10:45)
[2021-08-18] MEDS ORDERED: PROPOFOL INJECTION 50 ML IV ONE ×2 (10:49→11:55)
[2021-08-18] MEDS ORDERED: MIDAZOLAM 2 MG/2 ML (VERSED) VIAL ONE (10:49)
[2021-08-18] MEDS ORDERED: LIDOCAINE JELLY 2% 6 ML SYRINGE ONE (11:30)
--- NOTE | 2021-08-18 11:35 | Progress Note-Pre Operative ---
Pre-Operative Progress Note H&P Reviewed The H&P was reviewed, patient examined and no changes noted. Date Seen by Provider: Aug 18, 2021 Time Seen by Provider: 10:30 Date H&P Reviewed: Aug 18, 2021 Time H&P Reviewed: 10:30 Pre-Operative Diagnosis: chronic monomyelocytic leukemia DELFINA FAULKNER MD Aug 18, 2021 11:35
[2021-08-18] MEDS ORDERED: ACHD5005 PO ×2 (11:36)
--- NOTE | 2021-08-18 11:37 | Discharge Inst-Surgical ---
D/C Lap Instructions-KIDLuisa New, Converted, or Re-Newed RX: RX on Chart Follow Up PRN Activity as tolerated ok to access and use port anytime Regular Diet Symptoms to Report: Fever over 101 degree F, Nausea/Vomiting Infection Signs and Symptoms to report: Increased redness, Foul odor of wound, Increased drainage Bathing instructions: May shower Operative Area Clean/Dry; Keep incision clean/dry If any problems/questions: Contact your physician or go to Emergency Room DELFINA FAULKNER MD Aug 18, 2021 11:37
[2021-08-18] MEDS ORDERED: HYDROcodone/APAP 5 MG/325 MG (LORTAB) TAB PO ONE (11:45)
[2021-08-18] MEDS ORDERED: ONDANSETRON 4 MG/2 ML (SDV) Z0FRAN IVP PRN ×2 (11:45→12:15)
[2021-08-18] MEDS ORDERED: ACETAMINOPHEN 325 MG TABLET PO PRN (11:45)
[2021-08-18] MEDS ORDERED: morphine INJ 10 MG/ML 1ML (SYR OR VIAL) IVP PRN ×2 (11:45)
[2021-08-18] MEDS ORDERED: LIDOCAINE PF 2% 5 ML (XYLOCAINE) VIAL ONE (11:49)
--- NOTE | 2021-08-18 12:11 | Progress Note-Post Operative ---
Post-Operative Progess Note Surgeon (s)/Greenhouse Staff (s) Surgeon DELFINA FAULKNER MD Greenhouse Staff: none Pre-Operative Diagnosis chronic monomyelocytic leukemia Post-Operative Diagnosis same Procedure & Operative Findings Date of Procedure 08/18/21 Procedure Performed/Findings placement left subclavian groshong implantable cath under flouroscopy. Anesthesia Type mac with local Estimated Blood Loss Estimated blood loss (mL): minimal Specimens/Packing Specimens Removed none DELFINA FAULKNER MD Aug 18, 2021 12:11
[2021-08-18] MEDS ORDERED: HYDROmorphone 2 MG/ML VIAL (DILAUDID) IV ONE (12:15)
--- NOTE | 2021-08-18 12:23 | Diagnostic Imaging Report ---
INDICATION: Port placement COMPARISON: 05/24/2021 FINDINGS: Single view the chest demonstrates interval placement of a left subclavian Port-A-Cath. The tip is in the SVC right atrial junction. There is no pneumothorax. IMPRESSION: No post procedure pneumothorax. Dictated by: Dictated on workstation # [id number]
--- NOTE | 2021-08-18 12:46 | Diagnostic Imaging Report ---
INDICATION: Fluoroscopy for port placement. Fluoroscopy was provided in the OR during port placement. Three seconds of fluoroscopic time was utilized. A single image was obtained demonstrating port catheter with the tip at the SVC right atrial junction. IMPRESSION: Fluoroscopy for port placement. Dictated by: Dictated on workstation # [id number]
--- NOTE | 2021-08-18 13:57 | Anesthesia-General Post-Op ---
MAC Patient Condition Mental Status/LOC: Same as Preop Cardiovascular: Satisfactory Nausea/Vomiting: Absent Respiratory: Satisfactory Pain: Controlled Complications: Absent Post Op Complications Complications None Follow Up Care/Instructions Patient Instructions None needed. Anesthesiology Discharge Order Discharge Order Patient is doing well, no complaints, stable vital signs, no apparent adverse anesthesia problems. No complications reported per nursing. CASANDRA DICKSON FELT HAT POUNCING OPERATOR HAND Aug 18, 2021 13:57
--- NOTE | 2021-08-18 16:18 | OPERATIVE REPORT ---
DATE OF SERVICE: ATTENDING PRIMARY CARE PHYSICIAN: Zaid Mario DO. PREOPERATIVE DIAGNOSIS: Chronic monomyelocytic leukemia. POSTOPERATIVE DIAGNOSIS: Chronic monomyelocytic leukemia. PROCEDURE PERFORMED: Placement of left subclavian Groshong implantable catheter under fluoroscopy. SURGEON: Delfina Faulkner MD. ANESTHESIA: Monitored anesthesia care with local. ESTIMATED BLOOD LOSS: Minimal. FINDINGS: Catheter tip at superior vena caval - right atrial junction. DISPOSITION: The patient tolerated the procedure well. INDICATIONS FOR PROCEDURE: The patient is a 75-year-old female, who has had a blood dyscrasias for the past several years. Initially, this was a low white count, but then this also did affect her hemoglobin. She did undergo a bone marrow biopsy approximately one year ago, which did not show anything; however, she continued to have worsening symptoms and a recent bone marrow biopsy was consistent with a chronic, monomyelocytic leukemia. She will need to undergo chemotherapy and will require Groshong implantable catheter. DESCRIPTION OF PROCEDURE: The patient was brought to the operating room and laid supine on the table. After adequate IV pain and sedative medications and monitored anesthesia care, the chest and neck were prepped and draped in a standard surgical fashion. A 1% lidocaine with epinephrine was used to anesthetize the overlying skin in the left subclavian region. The left subclavian vein was cannulated with drawing of venous blood. A guidewire was then inserted under fluoroscopy. Cannulating needle removed and a skin incision was made using a 15 blade. The dilator and sheath were then placed over the guidewire and the guidewire and dilator were then removed and the Groshong catheter was placed until the catheter tip was at the superior vena caval - right atrial junction and the sheath removed. The inner wire within the catheter was then removed. The catheter cut down to size and the port placed onto the catheter. The chest reservoir was then created by extending the skin incision laterally and a plane was created between the subcutaneous fat and anterior pectoralis fascia using blunt dissection as well as electrocautery with visualization of good hemostasis. The port was then placed into the reservoir and sutured to the anterior pectoralis fascia using interrupted 3-0 Vicryl sutures. The subcutaneous tissue was then reapproximated using 3-0 Vicryl interrupted sutures. The skin was then closed using 4-0 Monocryl running subcuticular sutures. Wounds were then cleaned and covered with the Dermabond. The patient tolerated the procedure well. We will start IV and oral pain medication as well as a clear liquid diet. When she is able to ambulate and has adequate pain control, she may be discharged home. The port may be accessed and used at any time. Job ID: [id number] DocumentID: [id number] Dictated Date: 08/18/2021 12:16:34 Electrical Maintenance Worker Date: 08/18/2021 16:17:08 Dictated By: DELFINA FAULKNER MD
== END 2021-08-18 13:54 | disposition home or self-care (01) ==
LOC: SDC 09:40
PROVIDERS: ATTEND Surgery
DX: C93.10 Chronic myelomonocytic leukemia not having achieved remission (principal); I10 Essential (primary) hypertension; I25.10 Atherosclerotic heart disease of native coronary artery without angina pectoris; J44.9 Chronic obstructive pulmonary disease, unspecified; G62.9 Polyneuropathy, unspecified; F17.210 Nicotine dependence, cigarettes, uncomplicated; N32.81 Overactive bladder; Z79.899 Other long term (current) drug therapy
CPT/HCPCS: 36561; 71045; 76000; 87081; C1788

== ENCOUNTER 2021-11-01 08:47 | Outpatient (RCR) | payer MEDICARE ==
[2021-08-15 14:14] LABS: BASOPHILS % (AUTO) 0 % (0-10); EOSINOPHILS % (AUTO) 0 % (0-10); MEAN CORPUSCULAR HEMOGLOBIN 27 pg (25-34); MONOCYTES # (AUTO) 0.6 10^3/uL (0.0-1.0)
[2021-08-15 14:15] LABS: HEMATOCRIT 26 % (35-52); HEMOGLOBIN 7.8 g/dL (11.5-16.0); LYMPHOCYTES # (AUTO) 0.6 10^3/uL (1.0-4.0); LYMPHOCYTES % (AUTO) 39 % (12-44); MEAN CORPUSCULAR HGB CONC 30 g/dL (32-36); MEAN CORPUSCULAR VOLUME 92 fL (80-99); MEAN PLATELET VOLUME 9.7 fL (9.0-12.2); MONOCYTES % (AUTO) 38 % (0-12); NEUTROPHILS # (AUTO) 0.3 10^3/uL (1.8-7.8); NEUTROPHILS % (AUTO) 22 % (42-75); PLATELET COUNT 59 10^3/uL (130-400); WHITE BLOOD COUNT 1.5 10^3/uL (4.3-11.0)
[2021-08-15 14:37] LABS: ALBUMIN 3.5 GM/DL (3.2-4.5); BILIRUBIN,TOTAL 0.3 MG/DL (0.1-1.0); CREATININE SERUM 0.77 MG/DL (0.60-1.30); POTASSIUM 4.2 MMOL/L (3.6-5.0); TOTAL PROTEIN 7.7 GM/DL (6.4-8.2)
[2021-08-15 14:51] LABS: LYMPHOCYTES % (MANUAL) 34 %; MONOCYTES % (MANUAL) 32 %; NEUTROPHILS % (MANUAL) 26 %
[2021-08-15 14:52] LABS: ATYPICAL LYMPHOCYTES 5 %; BLAST CELLS 3 %; HYPOCHROMASIA MODERATE; MICROCYTOSIS MODERATE; POLYCHROMASIA SLIGHT
[2021-08-23 09:35] LABS: BASOPHILS % (AUTO) 0 % (0-10); EOSINOPHILS % (AUTO) 0 % (0-10); HEMATOCRIT 24 % (35-52); LYMPHOCYTES # (AUTO) 0.8 10^3/uL (1.0-4.0); LYMPHOCYTES % (AUTO) 48 % (12-44); MEAN CORPUSCULAR HEMOGLOBIN 28 pg (25-34); MEAN CORPUSCULAR HGB CONC 29 g/dL (32-36); MEAN CORPUSCULAR VOLUME 96 fL (80-99); MONOCYTES # (AUTO) 0.7 10^3/uL (0.0-1.0); MONOCYTES % (AUTO) 43 % (0-12); NEUTROPHILS # (AUTO) 0.1 10^3/uL (1.8-7.8); NEUTROPHILS % (AUTO) 8 % (42-75); PLATELET COUNT 64 10^3/uL (130-400); WHITE BLOOD COUNT 1.7 10^3/uL (4.3-11.0)
[2021-08-23 09:37] LABS: HEMOGLOBIN 6.9 g/dL (11.5-16.0)
[2021-08-23 09:53] LABS: CALCIUM 9.2 MG/DL (8.5-10.1); CREATININE SERUM 0.72 MG/DL (0.60-1.30); POTASSIUM 3.8 MMOL/L (3.6-5.0)
[2021-08-25 09:16] LABS: BASOPHILS % (AUTO) 0 % (0-10); HEMATOCRIT 26 % (35-52); MEAN PLATELET VOLUME 9.7 fL (9.0-12.2); MONOCYTES # (AUTO) 0.7 10^3/uL (0.0-1.0)
[2021-08-25 09:18] LABS: EOSINOPHILS % (AUTO) 1 % (0-10); HEMOGLOBIN 7.7 g/dL (11.5-16.0); LYMPHOCYTES # (AUTO) 1.3 10^3/uL (1.0-4.0); LYMPHOCYTES % (AUTO) 64 % (12-44); MEAN CORPUSCULAR HEMOGLOBIN 27 pg (25-34); MEAN CORPUSCULAR HGB CONC 30 g/dL (32-36); MEAN CORPUSCULAR VOLUME 92 fL (80-99); MONOCYTES % (AUTO) 31 % (0-12); NEUTROPHILS # (AUTO) 0.1 10^3/uL (1.8-7.8); NEUTROPHILS % (AUTO) 3 % (42-75); PLATELET COUNT 63 10^3/uL (130-400); WHITE BLOOD COUNT 2.1 10^3/uL (4.3-11.0)
[2021-08-25 09:34] LABS: CALCIUM 9.4 MG/DL (8.5-10.1); CREATININE SERUM 0.73 MG/DL (0.60-1.30)
[2021-08-28 09:29] LABS: BASOPHILS % (AUTO) 0 % (0-10); EOSINOPHILS % (AUTO) 0 % (0-10); HEMATOCRIT 28 % (35-52); HEMOGLOBIN 8.5 g/dL (11.5-16.0); LYMPHOCYTES # (AUTO) 0.9 10^3/uL (1.0-4.0); LYMPHOCYTES % (AUTO) 59 % (12-44); MEAN CORPUSCULAR HEMOGLOBIN 28 pg (25-34); MEAN CORPUSCULAR HGB CONC 30 g/dL (32-36); MEAN CORPUSCULAR VOLUME 93 fL (80-99); MEAN PLATELET VOLUME 9.9 fL (9.0-12.2); MONOCYTES # (AUTO) 0.4 10^3/uL (0.0-1.0); MONOCYTES % (AUTO) 29 % (0-12); NEUTROPHILS # (AUTO) 0.2 10^3/uL (1.8-7.8); NEUTROPHILS % (AUTO) 13 % (42-75)
[2021-08-28 09:30] LABS: WHITE BLOOD COUNT 1.4 10^3/uL (4.3-11.0)
[2021-08-28 09:31] LABS: PLATELET COUNT 61 10^3/uL (130-400)
[2021-08-28 09:45] LABS: CALCIUM 9.4 MG/DL (8.5-10.1); CREATININE SERUM 0.8 MG/DL (0.60-1.30)
[2021-08-31 09:10] LABS: BASOPHILS % (AUTO) 0 % (0-10); EOSINOPHILS % (AUTO) 0 % (0-10); MONOCYTES # (AUTO) 0.5 10^3/uL (0.0-1.0); MONOCYTES % (AUTO) 24 % (0-12); WHITE BLOOD COUNT 2.1 10^3/uL (4.3-11.0)
[2021-08-31 09:12] LABS: HEMATOCRIT 27 % (35-52); HEMOGLOBIN 8.1 g/dL (11.5-16.0); LYMPHOCYTES # (AUTO) 1.5 10^3/uL (1.0-4.0); LYMPHOCYTES % (AUTO) 69 % (12-44); MEAN CORPUSCULAR HEMOGLOBIN 28 pg (25-34); MEAN CORPUSCULAR HGB CONC 30 g/dL (32-36); MEAN CORPUSCULAR VOLUME 94 fL (80-99); MEAN PLATELET VOLUME 9.7 fL (9.0-12.2); NEUTROPHILS # (AUTO) 0.1 10^3/uL (1.8-7.8); NEUTROPHILS % (AUTO) 7 % (42-75)
[2021-08-31 09:14] LABS: PLATELET COUNT 62 10^3/uL (130-400)
[2021-08-31 09:28] LABS: CALCIUM 9.2 MG/DL (8.5-10.1); CREATININE SERUM 0.77 MG/DL (0.60-1.30); POTASSIUM 3.6 MMOL/L (3.6-5.0)
[2021-09-04 09:38] LABS: BASOPHILS % (AUTO) 0 % (0-10); EOSINOPHILS % (AUTO) 0 % (0-10); MEAN CORPUSCULAR HEMOGLOBIN 28 pg (25-34); MEAN PLATELET VOLUME 9.3 fL (9.0-12.2)
[2021-09-04 09:39] LABS: HEMATOCRIT 30 % (35-52); HEMOGLOBIN 8.8 g/dL (11.5-16.0); LYMPHOCYTES # (AUTO) 0.9 10^3/uL (1.0-4.0); LYMPHOCYTES % (AUTO) 41 % (12-44); MEAN CORPUSCULAR HGB CONC 30 g/dL (32-36); MEAN CORPUSCULAR VOLUME 94 fL (80-99); MONOCYTES # (AUTO) 0.8 10^3/uL (0.0-1.0); MONOCYTES % (AUTO) 39 % (0-12); NEUTROPHILS # (AUTO) 0.4 10^3/uL (1.8-7.8); NEUTROPHILS % (AUTO) 19 % (42-75); WHITE BLOOD COUNT 2.1 10^3/uL (4.3-11.0)
[2021-09-04 09:44] LABS: PLATELET COUNT 49 10^3/uL (130-400)
[2021-09-04 10:06] LABS: CALCIUM 9.4 MG/DL (8.5-10.1); CREATININE SERUM 0.74 MG/DL (0.60-1.30); POTASSIUM 4.3 MMOL/L (3.6-5.0)
[2021-09-07 14:42] LABS: BASOPHILS % (AUTO) 0 % (0-10); EOSINOPHILS % (AUTO) 0 % (0-10); HEMOGLOBIN 8.2 g/dL (11.5-16.0)
[2021-09-07 14:44] LABS: HEMATOCRIT 27 % (35-52); LYMPHOCYTES # (AUTO) 0.8 10^3/uL (1.0-4.0); LYMPHOCYTES % (AUTO) 51 % (12-44); MEAN CORPUSCULAR HEMOGLOBIN 28 pg (25-34); MEAN CORPUSCULAR HGB CONC 31 g/dL (32-36); MEAN CORPUSCULAR VOLUME 92 fL (80-99); MEAN PLATELET VOLUME 9.5 fL (9.0-12.2); MONOCYTES # (AUTO) 0.6 10^3/uL (0.0-1.0); MONOCYTES % (AUTO) 34 % (0-12); NEUTROPHILS # (AUTO) 0.3 10^3/uL (1.8-7.8); NEUTROPHILS % (AUTO) 15 % (42-75); WHITE BLOOD COUNT 1.6 10^3/uL (4.3-11.0)
[2021-09-07 14:45] LABS: PLATELET COUNT 39 10^3/uL (130-400)
[2021-09-07 14:58] LABS: CALCIUM 9.6 MG/DL (8.5-10.1); CREATININE SERUM 0.73 MG/DL (0.60-1.30)
[2021-09-11 09:35] LABS: BASOPHILS % (AUTO) 0 % (0-10); EOSINOPHILS % (AUTO) 0 % (0-10); HEMATOCRIT 29 % (35-52); HEMOGLOBIN 8.5 g/dL (11.5-16.0); LYMPHOCYTES # (AUTO) 0.7 10^3/uL (1.0-4.0); LYMPHOCYTES % (AUTO) 55 % (12-44); MEAN CORPUSCULAR HEMOGLOBIN 27 pg (25-34); MEAN CORPUSCULAR HGB CONC 30 g/dL (32-36); MEAN CORPUSCULAR VOLUME 92 fL (80-99); MEAN PLATELET VOLUME 9.6 fL (9.0-12.2); MONOCYTES # (AUTO) 0.4 10^3/uL (0.0-1.0); MONOCYTES % (AUTO) 31 % (0-12); NEUTROPHILS # (AUTO) 0.2 10^3/uL (1.8-7.8); NEUTROPHILS % (AUTO) 13 % (42-75)
[2021-09-11 09:41] LABS: PLATELET COUNT 34 10^3/uL (130-400); WHITE BLOOD COUNT 1.2 10^3/uL (4.3-11.0)
[2021-09-11 09:50] LABS: CALCIUM 9.8 MG/DL (8.5-10.1); CREATININE SERUM 0.73 MG/DL (0.60-1.30); POTASSIUM 4.4 MMOL/L (3.6-5.0)
[2021-09-14 09:54] LABS: BASOPHILS % (AUTO) 0 % (0-10); EOSINOPHILS % (AUTO) 0 % (0-10); HEMOGLOBIN 8.7 g/dL (11.5-16.0)
[2021-09-14 09:56] LABS: HEMATOCRIT 29 % (35-52); LYMPHOCYTES # (AUTO) 0.8 10^3/uL (1.0-4.0); LYMPHOCYTES % (AUTO) 50 % (12-44); MEAN CORPUSCULAR HEMOGLOBIN 28 pg (25-34); MEAN CORPUSCULAR HGB CONC 30 g/dL (32-36); MEAN CORPUSCULAR VOLUME 92 fL (80-99); MEAN PLATELET VOLUME 9.2 fL (9.0-12.2); MONOCYTES # (AUTO) 0.6 10^3/uL (0.0-1.0); MONOCYTES % (AUTO) 34 % (0-12); NEUTROPHILS # (AUTO) 0.3 10^3/uL (1.8-7.8); NEUTROPHILS % (AUTO) 16 % (42-75); PLATELET COUNT 41 10^3/uL (130-400); WHITE BLOOD COUNT 1.6 10^3/uL (4.3-11.0)
[2021-09-14 10:15] LABS: CALCIUM 9.8 MG/DL (8.5-10.1); CREATININE SERUM 0.71 MG/DL (0.60-1.30); POTASSIUM 4.6 MMOL/L (3.6-5.0)
[2021-09-18 09:29] LABS: BASOPHILS % (AUTO) 0 % (0-10); EOSINOPHILS % (AUTO) 0 % (0-10); HEMATOCRIT 28 % (35-52); HEMOGLOBIN 8.5 g/dL (11.5-16.0); LYMPHOCYTES # (AUTO) 0.6 10^3/uL (1.0-4.0); LYMPHOCYTES % (AUTO) 55 % (12-44); MEAN CORPUSCULAR HEMOGLOBIN 28 pg (25-34); MEAN CORPUSCULAR HGB CONC 30 g/dL (32-36); MEAN CORPUSCULAR VOLUME 92 fL (80-99); MONOCYTES # (AUTO) 0.3 10^3/uL (0.0-1.0); MONOCYTES % (AUTO) 25 % (0-12); NEUTROPHILS # (AUTO) 0.2 10^3/uL (1.8-7.8); NEUTROPHILS % (AUTO) 19 % (42-75); PLATELET COUNT 51 10^3/uL (130-400)
[2021-09-18 09:31] LABS: WHITE BLOOD COUNT 1.1 10^3/uL (4.3-11.0)
[2021-09-18 09:48] LABS: CALCIUM 9.7 MG/DL (8.5-10.1); CREATININE SERUM 0.75 MG/DL (0.60-1.30); POTASSIUM 3.9 MMOL/L (3.6-5.0)
[2021-09-20 09:31] LABS: BASOPHILS % (AUTO) 0 % (0-10); EOSINOPHILS % (AUTO) 0 % (0-10); HEMATOCRIT 26 % (35-52); HEMOGLOBIN 7.9 g/dL (11.5-16.0); LYMPHOCYTES # (AUTO) 0.6 10^3/uL (1.0-4.0); LYMPHOCYTES % (AUTO) 52 % (12-44); MEAN CORPUSCULAR HEMOGLOBIN 27 pg (25-34); MEAN CORPUSCULAR HGB CONC 30 g/dL (32-36); MEAN CORPUSCULAR VOLUME 91 fL (80-99); MEAN PLATELET VOLUME 9.9 fL (9.0-12.2); MONOCYTES # (AUTO) 0.4 10^3/uL (0.0-1.0); MONOCYTES % (AUTO) 35 % (0-12); NEUTROPHILS # (AUTO) 0.1 10^3/uL (1.8-7.8); NEUTROPHILS % (AUTO) 11 % (42-75); PLATELET COUNT 64 10^3/uL (130-400)
[2021-09-20 09:39] LABS: WHITE BLOOD COUNT 1.2 10^3/uL (4.3-11.0)
[2021-09-20 09:50] LABS: ALBUMIN 3.4 GM/DL (3.2-4.5); BILIRUBIN,TOTAL 0.2 MG/DL (0.1-1.0); CALCIUM 9.5 MG/DL (8.5-10.1); CREATININE SERUM 0.8 MG/DL (0.60-1.30); POTASSIUM 4.5 MMOL/L (3.6-5.0); TOTAL PROTEIN 7.1 GM/DL (6.4-8.2)
[2021-09-25 09:44] LABS: BASOPHILS % (AUTO) 1 % (0-10); EOSINOPHILS % (AUTO) 1 % (0-10); HEMATOCRIT 27 % (35-52); HEMOGLOBIN 8.2 g/dL (11.5-16.0); LYMPHOCYTES # (AUTO) 0.6 X 10^3 (1.0-4.0); LYMPHOCYTES % (AUTO) 53 % (12-44); MEAN CORPUSCULAR HEMOGLOBIN 28 pg (25-34); MEAN CORPUSCULAR HGB CONC 31 g/dL (32-36); MEAN CORPUSCULAR VOLUME 91 fL (80-99); MEAN PLATELET VOLUME 10.7 fL (9.0-12.2); MONOCYTES # (AUTO) 0.4 X 10^3 (0.0-1.0); MONOCYTES % (AUTO) 34 % (0-12); NEUTROPHILS # (AUTO) 0.1 X 10^3 (1.8-7.8); NEUTROPHILS % (AUTO) 8 % (42-75); PLATELET COUNT 71 10^3/uL (130-400)
[2021-09-25 09:47] LABS: CALCIUM 9.2 MG/DL (8.5-10.1); CREATININE SERUM 0.77 MG/DL (0.60-1.30); POTASSIUM 3.8 MMOL/L (3.6-5.0)
[2021-09-25 09:53] LABS: WHITE BLOOD COUNT 1.2 10^3/uL (4.3-11.0)
[2021-09-27 09:38] LABS: BASOPHILS % (AUTO) 0 % (0-10); EOSINOPHILS % (AUTO) 1 % (0-10); MEAN CORPUSCULAR VOLUME 92 fL (80-99)
[2021-09-27 09:40] LABS: HEMATOCRIT 26 % (35-52); LYMPHOCYTES # (AUTO) 1.2 10^3/uL (1.0-4.0); LYMPHOCYTES % (AUTO) 58 % (12-44); MEAN CORPUSCULAR HEMOGLOBIN 28 pg (25-34); MEAN CORPUSCULAR HGB CONC 30 g/dL (32-36); MEAN PLATELET VOLUME 9.8 fL (9.0-12.2); MONOCYTES # (AUTO) 0.7 10^3/uL (0.0-1.0); MONOCYTES % (AUTO) 32 % (0-12); NEUTROPHILS # (AUTO) 0.2 10^3/uL (1.8-7.8); NEUTROPHILS % (AUTO) 9 % (42-75); WHITE BLOOD COUNT 2.1 10^3/uL (4.3-11.0)
[2021-09-27 09:43] LABS: PLATELET COUNT 60 10^3/uL (130-400)
[2021-09-27 09:52] LABS: CALCIUM 9.1 MG/DL (8.5-10.1); CREATININE SERUM 0.72 MG/DL (0.60-1.30); POTASSIUM 3.9 MMOL/L (3.6-5.0)
[2021-10-02 08:51] LABS: BASOPHILS % (AUTO) 0 % (0-10); EOSINOPHILS % (AUTO) 1 % (0-10); HEMOGLOBIN 9.5 g/dL (11.5-16.0)
[2021-10-02 08:53] LABS: HEMATOCRIT 32 % (35-52); LYMPHOCYTES % (AUTO) 48 % (12-44); MEAN CORPUSCULAR HEMOGLOBIN 28 pg (25-34); MEAN CORPUSCULAR HGB CONC 30 g/dL (32-36); MEAN CORPUSCULAR VOLUME 92 fL (80-99); MEAN PLATELET VOLUME 10.9 fL (9.0-12.2); MONOCYTES # (AUTO) 0.6 10^3/uL (0.0-1.0); MONOCYTES % (AUTO) 29 % (0-12); NEUTROPHILS # (AUTO) 0.4 10^3/uL (1.8-7.8); NEUTROPHILS % (AUTO) 21 % (42-75); PLATELET COUNT 42 10^3/uL (130-400)
[2021-10-02 09:07] LABS: CALCIUM 9.5 MG/DL (8.5-10.1); CREATININE SERUM 0.79 MG/DL (0.60-1.30); POTASSIUM 3.9 MMOL/L (3.6-5.0)
[2021-10-05 08:42] LABS: BASOPHILS % (AUTO) 0 % (0-10); EOSINOPHILS % (AUTO) 1 % (0-10); HEMATOCRIT 32 % (35-52); HEMOGLOBIN 9.8 g/dL (11.5-16.0); LYMPHOCYTES # (AUTO) 1.1 10^3/uL (1.0-4.0); LYMPHOCYTES % (AUTO) 58 % (12-44); MEAN CORPUSCULAR HEMOGLOBIN 28 pg (25-34); MEAN CORPUSCULAR HGB CONC 30 g/dL (32-36); MEAN CORPUSCULAR VOLUME 91 fL (80-99); MEAN PLATELET VOLUME 10.2 fL (9.0-12.2); MONOCYTES # (AUTO) 0.6 10^3/uL (0.0-1.0); MONOCYTES % (AUTO) 29 % (0-12); NEUTROPHILS # (AUTO) 0.2 10^3/uL (1.8-7.8); NEUTROPHILS % (AUTO) 12 % (42-75); WHITE BLOOD COUNT 1.9 10^3/uL (4.3-11.0)
[2021-10-05 08:50] LABS: PLATELET COUNT 31 10^3/uL (130-400)
[2021-10-05 08:52] LABS: CALCIUM 9.6 MG/DL (8.5-10.1); CREATININE SERUM 0.85 MG/DL (0.60-1.30)
[2021-10-12 09:04] LABS: BASOPHILS % (AUTO) 0 % (0-10); EOSINOPHILS % (AUTO) 0 % (0-10); HEMOGLOBIN 9.6 g/dL (11.5-16.0); MEAN CORPUSCULAR HEMOGLOBIN 27 pg (25-34); MEAN CORPUSCULAR VOLUME 90 fL (80-99); MONOCYTES # (AUTO) 0.6 10^3/uL (0.0-1.0)
[2021-10-12 09:06] LABS: HEMATOCRIT 31 % (35-52); LYMPHOCYTES # (AUTO) 0.9 10^3/uL (1.0-4.0); LYMPHOCYTES % (AUTO) 51 % (12-44); MEAN CORPUSCULAR HGB CONC 31 g/dL (32-36); MONOCYTES % (AUTO) 38 % (0-12); NEUTROPHILS # (AUTO) 0.2 10^3/uL (1.8-7.8); NEUTROPHILS % (AUTO) 11 % (42-75); WHITE BLOOD COUNT 1.7 10^3/uL (4.3-11.0)
[2021-10-12 09:08] LABS: PLATELET COUNT 20 10^3/uL (130-400)
[2021-10-12 09:24] LABS: CALCIUM 9.6 MG/DL (8.5-10.1); CREATININE SERUM 0.77 MG/DL (0.60-1.30)
[2021-10-16 09:09] LABS: BASOPHILS % (AUTO) 0 % (0-10); EOSINOPHILS % (AUTO) 0 % (0-10); HEMOGLOBIN 10.3 g/dL (11.5-16.0); WHITE BLOOD COUNT 1.6 10^3/uL (4.3-11.0)
[2021-10-16 09:11] LABS: HEMATOCRIT 34 % (35-52); LYMPHOCYTES % (AUTO) 60 % (12-44); MEAN CORPUSCULAR HEMOGLOBIN 28 pg (25-34); MEAN CORPUSCULAR HGB CONC 30 g/dL (32-36); MEAN CORPUSCULAR VOLUME 91 fL (80-99); MONOCYTES # (AUTO) 0.5 10^3/uL (0.0-1.0); MONOCYTES % (AUTO) 29 % (0-12); NEUTROPHILS # (AUTO) 0.2 10^3/uL (1.8-7.8); NEUTROPHILS % (AUTO) 10 % (42-75)
[2021-10-16 09:14] LABS: PLATELET COUNT 25 10^3/uL (130-400)
[2021-10-16 09:36] LABS: CALCIUM 9.9 MG/DL (8.5-10.1); CREATININE SERUM 0.81 MG/DL (0.60-1.30); POTASSIUM 3.9 MMOL/L (3.6-5.0)
[2021-10-18 10:00] LABS: BILIRUBIN,URINE NEGATIVE (NEGATIVE); CLARITY,URINE CLEAR; COLOR,URINE YELLOW; GLUCOSE, URINE (UA) NEGATIVE (NEGATIVE); KETONES,URINE NEGATIVE (NEGATIVE); LEUKOCYTE ESTERASE ,URINE NEGATIVE (NEGATIVE); NITRITE,URINE NEGATIVE (NEGATIVE); PH,URINE 5.5 (5-9); PROTEIN,URINE NEGATIVE (NEGATIVE)
[2021-10-18 10:09] LABS: BACTERIA,URINE TRACE /HPF; WBC,URINE RARE /HPF
[2021-10-23 09:18] LABS: BASOPHILS % (AUTO) 0 % (0-10); EOSINOPHILS % (AUTO) 0 % (0-10); NEUTROPHILS # (AUTO) 0.1 10^3/uL (1.8-7.8)
[2021-10-23 09:19] LABS: HEMATOCRIT 27 % (35-52); HEMOGLOBIN 8.2 g/dL (11.5-16.0); LYMPHOCYTES # (AUTO) 0.9 10^3/uL (1.0-4.0); LYMPHOCYTES % (AUTO) 63 % (12-44); MEAN CORPUSCULAR HEMOGLOBIN 27 pg (25-34); MEAN CORPUSCULAR HGB CONC 30 g/dL (32-36); MEAN CORPUSCULAR VOLUME 90 fL (80-99); MEAN PLATELET VOLUME 10.4 fL (9.0-12.2); MONOCYTES # (AUTO) 0.5 10^3/uL (0.0-1.0); MONOCYTES % (AUTO) 31 % (0-12); NEUTROPHILS % (AUTO) 6 % (42-75); WHITE BLOOD COUNT 1.5 10^3/uL (4.3-11.0)
[2021-10-23 09:23] LABS: PLATELET COUNT 22 10^3/uL (130-400)
[2021-10-23 09:45] LABS: CALCIUM 8.5 MG/DL (8.5-10.1); CREATININE SERUM 0.67 MG/DL (0.60-1.30); POTASSIUM 3.5 MMOL/L (3.6-5.0)
[2021-10-26 09:20] LABS: BASOPHILS % (AUTO) 0 % (0-10); EOSINOPHILS % (AUTO) 0 % (0-10); HEMOGLOBIN 9.3 g/dL (11.5-16.0); MEAN CORPUSCULAR HEMOGLOBIN 27 pg (25-34)
[2021-10-26 09:22] LABS: HEMATOCRIT 30 % (35-52); LYMPHOCYTES # (AUTO) 1.4 10^3/uL (1.0-4.0); LYMPHOCYTES % (AUTO) 58 % (12-44); MEAN CORPUSCULAR HGB CONC 31 g/dL (32-36); MEAN CORPUSCULAR VOLUME 88 fL (80-99); MONOCYTES # (AUTO) 0.9 10^3/uL (0.0-1.0); MONOCYTES % (AUTO) 36 % (0-12); NEUTROPHILS # (AUTO) 0.1 10^3/uL (1.8-7.8); NEUTROPHILS % (AUTO) 5 % (42-75); WHITE BLOOD COUNT 2.4 10^3/uL (4.3-11.0)
[2021-10-26 09:27] LABS: PLATELET COUNT 30 10^3/uL (130-400)
[2021-10-30 09:16] LABS: BASOPHILS % (AUTO) 0 % (0-10); EOSINOPHILS % (AUTO) 1 % (0-10); HEMATOCRIT 25 % (35-52); HEMOGLOBIN 7.5 g/dL (11.5-16.0); LYMPHOCYTES # (AUTO) 0.9 10^3/uL (1.0-4.0); LYMPHOCYTES % (AUTO) 53 % (12-44); MEAN CORPUSCULAR HEMOGLOBIN 27 pg (25-34); MEAN CORPUSCULAR HGB CONC 30 g/dL (32-36); MEAN CORPUSCULAR VOLUME 91 fL (80-99); MEAN PLATELET VOLUME 10.4 fL (9.0-12.2); MONOCYTES # (AUTO) 0.5 10^3/uL (0.0-1.0); MONOCYTES % (AUTO) 30 % (0-12); NEUTROPHILS # (AUTO) 0.3 10^3/uL (1.8-7.8); NEUTROPHILS % (AUTO) 15 % (42-75); WHITE BLOOD COUNT 1.7 10^3/uL (4.3-11.0)
[2021-10-30 09:18] LABS: PLATELET COUNT 27 10^3/uL (130-400)
[2021-10-30 09:36] LABS: CALCIUM 9.8 MG/DL (8.5-10.1); CREATININE SERUM 0.81 MG/DL (0.60-1.30); POTASSIUM 3.8 MMOL/L (3.6-5.0)
[~2021-11-01] VITALS: Ht 170.2 cm; Wt 54.4 kg
[~2021-11-01 08:47] MED LIST changes: +ACHD5005 PO; +AZACITIDINE IV SCH; +CYCL10TA25 PO; -CYCL10TA9 PO; +NS IV 1000 ML (CANCER CTR) IV SCH; +NS IV SCH
[2021-11-01 09:30] LABS: BASOPHILS % (AUTO) 0 % (0-10); EOSINOPHILS % (AUTO) 0 % (0-10); HEMATOCRIT 28 % (35-52); HEMOGLOBIN 8.5 g/dL (11.5-16.0); LYMPHOCYTES # (AUTO) 1.1 10^3/uL (1.0-4.0); LYMPHOCYTES % (AUTO) 55 % (12-44); MEAN CORPUSCULAR HEMOGLOBIN 27 pg (25-34); MEAN CORPUSCULAR HGB CONC 30 g/dL (32-36); MEAN CORPUSCULAR VOLUME 90 fL (80-99); MEAN PLATELET VOLUME 8.5 fL (9.0-12.2); MONOCYTES # (AUTO) 0.5 10^3/uL (0.0-1.0); MONOCYTES % (AUTO) 24 % (0-12); NEUTROPHILS # (AUTO) 0.4 10^3/uL (1.8-7.8); NEUTROPHILS % (AUTO) 20 % (42-75); WHITE BLOOD COUNT 1.9 10^3/uL (4.3-11.0)
[2021-11-01 09:33] LABS: PLATELET COUNT 23 10^3/uL (130-400)
== END 2021-11-03 | disposition home or self-care (01) ==
LOC: ONC 08:47
PROVIDERS: ATTEND Internal Medicine Hematology & Oncology
DX: C93.10 Chronic myelomonocytic leukemia not having achieved remission (principal); D61.818 Other pancytopenia; I10 Essential (primary) hypertension; E78.2 Mixed hyperlipidemia; Z98.890 Other specified postprocedural states; Z79.899 Other long term (current) drug therapy; Z72.0 Tobacco use
CPT/HCPCS: 80053; 85007; 85027; G0463; 36430; 36591; 80048; 81000; 83615; 85025; 86850; 86900; 86901; 86920; 96375; 96409; 99213

== ENCOUNTER 2021-11-10 09:55 | Emergency (ER) | payer MEDICARE ==
[~2021-11-10] VITALS: Ht 170 cm; Wt 63.5 kg
[~2021-11-10 09:55] MED LIST changes: -AZACITIDINE IV SCH; -NS IV 1000 ML (CANCER CTR) IV SCH; -NS IV SCH
--- NOTE | 2021-11-10 10:23 | ED Abdominal Pain ---
General Chief Complaint: Abdominal/GI Problems Stated Complaint: LOWER BACK/PELVIC PAIN Nursing Triage Note: PT AMBULATORY TO ER, PT LOWER BACK/FLANK/ABD PAIN, ONSET ABOUT A WEEK AGO, REPORTS HAS HAD EPISODES OF CONSTIPATIN/DIARRHEA THIS PAST WEEK WELL. PT REPORTS HAD LABWORK PERFORMED YESTERDAY, WAS TOLD HER URINE HAD A LITTLE BLOOD IN IT BUT NO INFECTION. Source of Information: Patient, Family (daughter) Exam Limitations: No Limitations History of Present Illness Date Seen by Provider: Nov 10, 2021 Time Seen by Provider: 10:10 Initial Comments Patient is a 76-year-old female who presents to the emergency department today with a chief complaint of suprapubic abdominal pain and low back pain. Onset about a week ago. She has a history of leukemia, is on cycles of chemotherapy her last chemotherapy was a week ago last Saturday. She is currently on a 2- week off cycle. Patient endorses generalized malaise, weakness and pain. She also has dysuria, urgency and frequency. Had routine lab draw yesterday and was noted to have hematuria. She is status post hysterectomy. She has been fighting alternating constipation and diarrhea. No fevers or chills. No chest pain or productive cough. She is COVID vaccinated, her booster was in October. Has never had a kidney stone before. Nothing makes the pain any better or worse. She did not take any pain medications last night or today. Actually states currently she has no pain. Denies any falls, twists or injuries. All other review of systems reviewed and negative except for stated Timing/Duration: 1 Week Severity/Quality: Moderate Location: Suprapubic Radiation: No Radiation Activities at Onset: None Associated Symptoms: Back Pain, Weakness Allergies and Home Medications Allergies Coded Allergies: No Known Drug Allergies (Unverified , 08/17/21) Patient Home Medication List Home Medication List Reviewed: Yes Acetaminophen (Tylenol Extra Strength) 500 Mg Tablet, 1,000 MG PO Q8H PRN for PAIN-MILD (1-4), (Reported) Entered as Reported by: MARIA EUGENIA LÓPEZ on 03/17/21 1142 Carbidopa/Levodopa (Carbidopa-Levodopa 25-100 Tab) 1 Each Tablet, 1 EACH PO DAILY, (Reported) Entered as Reported by: ISADORA SRIVASTAVA on 08/17/21 1119 Cholecalciferol (Vitamin D3) (Vitamin D3) 25 Mcg Tablet, 25 MCG PO DAILY, (Reported) Entered as Reported by: MARIA EUGENIA LÓPEZ on 03/17/21 1142 Ciprofloxacin HCl (Cipro) Unknown Strength Tablet, Unknown Dose PO, (Reported) Entered as Reported by: ISADORA SRIVASTAVA on 08/17/21 111 Colestipol HCl (Colestipol HCl) 1 Gm Tablet, 1 GM PO DAILY, (Reported) Entered as Reported by: ISADORA SRIVASTAVA on 08/17/21 111 Cyproheptadine HCl (Cyproheptadine HCl) Unknown Strength Tablet, Unknown Dose PO, (Reported) Entered as Reported by: ISADORA SRIVASTAVA on 08/17/21 111 Docusate Sodium (Docusate Sodium) 100 Mg Capsule, 100 MG PO BID PRN for CONSTIPATION-1ST LINE, (Reported) Entered as Reported by: MARIA EUGENIA LÓPEZ on 03/17/21 1142 Hydrocodone/Acetaminophen (Hydrocodone-Acetamin 5-325 mg) 1 Each Tablet, 1 TAB PO Q4H PRN for PAIN-MODERATE (5-7) Prescribed by: DELFINA FAULKNER on 08/18/21 1136 Ibuprofen (Ibuprofen) 600 Mg Tablet, 600 MG PO QID PRN for PAIN-MILD (1-4), (Reported) Entered as Reported by: MARIA EUGENIA LÓPEZ on 03/17/21 1142 Lactobacillus Rhamnosus GG (Culturelle) 1 Each Capsule, 1 EACH PO DAILY, (Reported) Entered as Reported by: ISADORA SRIVASTAVA on 08/17/21 111 Leflunomide (Leflunomide) 10 Mg Tablet, 10 MG PO DAILY, (Reported) Entered as Reported by: ISADORA SRIVASTAVA on 08/17/21 111 Levofloxacin (Levofloxacin) 250 Mg Tablet, 250 MG PO DAILY Prescribed by: BAYLEE ORTIZ on 11/10/21 1114 Ondansetron (Ondansetron Odt) 4 Mg Tab.rapdis, 4 MG PO Q4H Prescribed by: FAHAD VALLE on 05/24/21 2338 Polymyxin B Sulf/Trimethoprim (Polymyxin B-Tmp Eye Drops) 10 Ml Drops, 10 ML OP DAILY, (Reported) Entered as Reported by: ISADORA SRIVASTAVA on 08/17/21 111 Prednisolone Acetate/Pf (Prednisolone Acet 1% Eye Drop) 5 Ml Drops.susp, 5 ML OP DAILY, (Reported) Entered as Reported by: ISADORA SRIVASTAVA on 08/17/21 111 Prednisone (Prednisone) 5 Mg Tablet, 5 MG PO DAILY, (Reported) Entered as Reported by: ISADORA SRIVASTAVA on 08/17/21 1119 Review of Systems Review of Systems Constitutional: see HPI EENTM: No Symptoms Reported Respiratory: No Symptoms Reported Cardiovascular: No Symptoms Reported Gastrointestinal: Abdominal Pain, Poor Appetite Genitourinary: Frequency, Pain, Urgency Musculoskeletal: back pain (Low back pain) Skin: no symptoms reported Psychiatric/Neurological: No Symptoms Reported All Other Systems Reviewed Negative Unless Noted: Yes Past Aeqyepe-Scdgkh-Sxearr Hx Patient Social History Tobacco Use?: No Use of E-Cig and/or Vaping dev: No Substance use?: No Alcohol Use?: No Pt feels they are or have been: No Immunizations Up To Date First/Initial COVID19 Vaccinat: [employer] Second COVID19 Vaccination Mesfin: [employer] 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: [employer] Seasonal Allergies Seasonal Allergies: No Past Medical History Surgery/Hospitalization HX: ANTERIOR/POSTERIOR REPAIR, WITH WOUND DEHISCENCE WITH I&D AND REVISION OF A/P REPAIR BILATERAL CATARACT SURGERY 12/2019 COLONOSCOPIES BONE MARROW BIOPSY 2019 Surgeries: Yes Adenoidectomy, Bladder Surgery, Eye Surgery, Gallbladder, Hysterectomy, Tonsillectomy Respiratory: Yes COPD Currently Using CPAP: No Currently Using BIPAP: No Cardiac: Yes Coronary Artery Disease, High Cholesterol, Hypertension 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 Genitourinary: Yes (BLADDER PROLAPSE--S/P A/P REPAIR WITH REVISION) UTI-Chronic Gastrointestinal: Yes Diverticulosis Musculoskeletal: Yes (CHRONIC GENERALIZED PAIN ) Arthritis Endocrine: No HEENT: Yes (BILAT CATARACT SURGERY 12/2019) Cataract Cancer: Yes (LEUKEMIA (CURRENTLY)) Leukemia, Skin Did You Recieve Any Treatments: Yes What Type of Treatment Did You: Surgical Intervention Psychosocial: Yes Depression Integumentary: Yes Eczema Blood Disorders: Yes (LEUKEMIA) Adverse Reaction/Blood Tranf: Yes (HAS HAD BLOOD WITH NO REACTIONS) Family Medical History Heart Disease, Cancer, Stroke Noncontributory Physical Exam Vital Signs Vital Signs - First Documented 11/10/21 10:00 Temp 36.9 Pulse 107 Resp 18 B/P (MAP) 164/84 (110) Pulse Ox 98 O2 Delivery Room Air Capillary Refill : Height/Weight/BMI Height: 5'7.00" Weight: 170lbs. oz. 77.944935dp; 21.00 BMI Method:Stated General Appearance: no apparent distress, cachetic HEENT: PERRL/EOMI Neck: full range of motion Respiratory: lungs clear, normal breath sounds, no respiratory distress, no accessory muscle use Cardiovascular: regular rate, rhythm (103) Gastrointestinal: normal bowel sounds, soft, no organomegaly; No distended; guarding; No rebound; tenderness (Suprapubic), other (No pulsatile mid abdominal mass) Extremities: normal range of motion, non-tender, normal inspection, no pedal edema, no calf tenderness, normal capillary refill Back: normal inspection, no vertebral tenderness Neurologic/Psychiatric: alert, normal mood/affect, oriented x 3 Skin: normal color, warm/dry, pallor (slightly pale) Progress/Results/Core Measures Results/Orders Lab Results Laboratory Tests Test 11/10/21 10:22 Range/Units Urine Color YELLOW Urine Clarity SL CLOUDY Urine pH 5.5 5-9 Urine Specific [place] >=1.030 1.016-1.022 Urine Protein 2+ H NEGATIVE Urine Glucose (UA) NEGATIVE NEGATIVE Urine Ketones NEGATIVE NEGATIVE Urine Nitrite POSITIVE H NEGATIVE Urine Bilirubin NEGATIVE NEGATIVE Urine Urobilinogen 0.2 < = 1.0 MG/DL Urine Leukocyte Esterase NEGATIVE NEGATIVE Urine RBC (Auto) 3+ H NEGATIVE Urine RBC 25-50 H /HPF Urine WBC 0-2 /HPF Urine Squamous Epithelial Cells 2-5 /HPF Urine Crystals NONE /LPF Urine Bacteria FEW H /HPF Urine Casts NONE /LPF Urine Mucus NEGATIVE /LPF Urine Culture Indicated YES Micro Results Microbiology 11/10/21 Urine Culture - Final, Complete 3 or more isolates My Orders Orders - BAYLEE ORTIZ MD Ua Culture If Indicated (11/10/21 10:19) Urine Culture (11/10/21 10:22) Vital Signs/I&O 11/10/21 11/10/21 10:00 11:17 Temp 36.9 Pulse 107 90 Resp 18 18 B/P (MAP) 164/84 (110) 142/69 Pulse Ox 98 95 O2 Delivery Room Air Room Air Blood Pressure Mean: 110 Progress Progress Note : Time: 11:09 Progress Note Patient seen and evaluated, 76-year-old with a history of leukemia currently on chemotherapy. Complains of suprapubic pain, dysuria, urgency and frequency. Evaluation today includes a physical exam as well as urinalysis with culture as indicated. She is noted to have again today some hematuria but also today her urine is nitrite positive. Her pain seems to have abated, I do not believe that she has a kidney stone as she had a CAT scan within the last 6 months that did not show any intraparenchymal stones. She does not "act like a kidney stone". She is afebrile has no CVA tenderness. I do not suspect pyelonephritis. We will put her on Levaquin as her daughter states she is tolerated that well in the past for UTI. I have encouraged fluids, cranberry juice/pills, Benefiber for her stools. Return precautions have been discussed. Both she and her daughter verbalized understanding. All questions are sought and answered. Departure Impression Primary Impression: Hemorrhagic cystitis Additional Impression: Abdominal pain Qualified Codes: R10.30 - Lower abdominal pain, unspecified Disposition: 01 HOME, SELF-CARE Condition: Stable Departure-Patient Inst. Decision time for Depature: 11:11 Referrals: TIFFANI MARTINEZ DO (PCP/Family) Primary Care Physician Patient Instructions: Urinary Tract Infection, Adult (DC) Add. Discharge Instructions: Drink lots of fluids to stay well-hydrated. You can use cranberry juice/pills as well. [id number] Pyridium/Azo 2 pills 3 times a day for bladder spasm pain Levaquin 250 mg once a day for the next 7 days. If she develops fever, worsening lower abdominal pain, vomiting, confusion/change in mental status please bring her back to the emergency room for reevaluation. Follow-up with the cancer center as scheduled as well as your primary care doctor as needed. Scripts Levofloxacin (Levofloxacin) 250 Mg Tablet 250 MG PO DAILY for 7 Days, #7 TAB Prov: BAYLEE ORTIZ MD 11/10/21 BAYLEE ORTIZ MD Nov 10, 2021 10:23
[2021-11-10 10:39] LABS: BILIRUBIN,URINE NEGATIVE (NEGATIVE); CLARITY,URINE SL CLOUDY; COLOR,URINE YELLOW; GLUCOSE, URINE (UA) NEGATIVE (NEGATIVE); KETONES,URINE NEGATIVE (NEGATIVE); LEUKOCYTE ESTERASE ,URINE NEGATIVE (NEGATIVE); NITRITE,URINE POSITIVE (NEGATIVE); PH,URINE 5.5 (5-9); PROTEIN,URINE 2+ (NEGATIVE)
[2021-11-10 10:54] LABS: BACTERIA,URINE FEW /HPF; RBC,URINE 25-50 /HPF; WBC,URINE 0-2 /HPF
[2021-11-10] MEDS ORDERED: LVF250T PO (11:14)
[2021-11-10 11:17] VITALS: BP 142/69
== END 2021-11-10 11:17 | disposition home or self-care (01) ==
LOC: EDUNIT# 09:55 → ER 09:57
DX: N30.91 Cystitis, unspecified with hematuria (principal); J44.9 Chronic obstructive pulmonary disease, unspecified; I10 Essential (primary) hypertension; E78.00 Pure hypercholesterolemia, unspecified; Z79.899 Other long term (current) drug therapy
CPT/HCPCS: 81000; 87088; 99282

== ENCOUNTER 2021-11-16 09:14 | Outpatient (RCR) | payer MEDICARE ==
[2021-11-07 10:04] LABS: BASOPHILS % (AUTO) 0 % (0-10); EOSINOPHILS % (AUTO) 0 % (0-10)
[2021-11-07 10:06] LABS: HEMATOCRIT 30 % (35-52); HEMOGLOBIN 9.3 g/dL (11.5-16.0); LYMPHOCYTES # (AUTO) 0.6 10^3/uL (1.0-4.0); LYMPHOCYTES % (AUTO) 14 % (12-44); MEAN CORPUSCULAR HEMOGLOBIN 27 pg (25-34); MEAN CORPUSCULAR HGB CONC 31 g/dL (32-36); MEAN CORPUSCULAR VOLUME 88 fL (80-99); MONOCYTES # (AUTO) 1.2 10^3/uL (0.0-1.0); MONOCYTES % (AUTO) 27 % (0-12); NEUTROPHILS # (AUTO) 2.6 10^3/uL (1.8-7.8); NEUTROPHILS % (AUTO) 58 % (42-75); WHITE BLOOD COUNT 4.6 10^3/uL (4.3-11.0)
[2021-11-07 10:07] LABS: PLATELET COUNT 23 10^3/uL (130-400)
[2021-11-07 10:22] LABS: CALCIUM 9.7 MG/DL (8.5-10.1); CREATININE SERUM 0.95 MG/DL (0.60-1.30)
[2021-11-09 08:25] LABS: BASOPHILS % (AUTO) 0 % (0-10); HEMOGLOBIN 9.1 g/dL (11.5-16.0); MEAN PLATELET VOLUME 10.4 fL (9.0-12.2); MONOCYTES # (AUTO) 1.5 10^3/uL (0.0-1.0); MONOCYTES % (AUTO) 40 % (0-12); WHITE BLOOD COUNT 3.7 10^3/uL (4.3-11.0)
[2021-11-09 08:26] LABS: EOSINOPHILS % (AUTO) 0 % (0-10); HEMATOCRIT 30 % (35-52); LYMPHOCYTES # (AUTO) 0.8 10^3/uL (1.0-4.0); LYMPHOCYTES % (AUTO) 20 % (12-44); MEAN CORPUSCULAR HEMOGLOBIN 27 pg (25-34); MEAN CORPUSCULAR HGB CONC 30 g/dL (32-36); MEAN CORPUSCULAR VOLUME 88 fL (80-99); NEUTROPHILS # (AUTO) 1.5 10^3/uL (1.8-7.8); NEUTROPHILS % (AUTO) 39 % (42-75)
[2021-11-09 08:36] LABS: PLATELET COUNT 20 10^3/uL (130-400)
[2021-11-09 08:46] LABS: CALCIUM 9.8 MG/DL (8.5-10.1); CREATININE SERUM 0.75 MG/DL (0.60-1.30); POTASSIUM 4.2 MMOL/L (3.6-5.0)
[2021-11-09 08:53] LABS: BILIRUBIN,URINE NEGATIVE (NEGATIVE); CLARITY,URINE CLEAR; COLOR,URINE YELLOW; GLUCOSE, URINE (UA) NEGATIVE (NEGATIVE); KETONES,URINE NEGATIVE (NEGATIVE); LEUKOCYTE ESTERASE ,URINE NEGATIVE (NEGATIVE); NITRITE,URINE NEGATIVE (NEGATIVE); PROTEIN,URINE 3+ (NEGATIVE)
[2021-11-09 09:03] LABS: RBC,URINE 50-100 /HPF
[2021-11-09 09:04] LABS: BACTERIA,URINE NEGATIVE /HPF; SQUAMOUS EPITHELIAL CELL,UR 0-2 /HPF
[2021-11-13 09:39] LABS: BASOPHILS % (AUTO) 0 % (0-10); EOSINOPHILS % (AUTO) 0 % (0-10); HEMATOCRIT 32 % (35-52); HEMOGLOBIN 9.7 g/dL (11.5-16.0); LYMPHOCYTES # (AUTO) 0.7 10^3/uL (1.0-4.0); LYMPHOCYTES % (AUTO) 30 % (12-44); MEAN CORPUSCULAR HEMOGLOBIN 27 pg (25-34); MEAN CORPUSCULAR HGB CONC 31 g/dL (32-36); MEAN CORPUSCULAR VOLUME 87 fL (80-99); MONOCYTES # (AUTO) 0.7 10^3/uL (0.0-1.0); MONOCYTES % (AUTO) 29 % (0-12); NEUTROPHILS % (AUTO) 40 % (42-75); WHITE BLOOD COUNT 2.5 10^3/uL (4.3-11.0)
[2021-11-13 09:42] LABS: PLATELET COUNT 28 10^3/uL (130-400)
[2021-11-13 09:54] LABS: CALCIUM 10.2 MG/DL (8.5-10.1); CREATININE SERUM 0.81 MG/DL (0.60-1.30); POTASSIUM 4.1 MMOL/L (3.6-5.0)
[~2021-11-16 09:14] MED LIST changes: +LVF250T PO; +NS IV 1000 ML (CANCER CTR) 1,000 ML ONE
[2021-11-16 09:25] LABS: EOSINOPHILS % (AUTO) 0 % (0-10); HEMOGLOBIN 9.1 g/dL (11.5-16.0)
[2021-11-16 09:27] LABS: BASOPHILS % (AUTO) 0 % (0-10); HEMATOCRIT 30 % (35-52); LYMPHOCYTES # (AUTO) 0.9 10^3/uL (1.0-4.0); LYMPHOCYTES % (AUTO) 39 % (12-44); MEAN CORPUSCULAR HEMOGLOBIN 27 pg (25-34); MEAN CORPUSCULAR HGB CONC 30 g/dL (32-36); MEAN CORPUSCULAR VOLUME 88 fL (80-99); MEAN PLATELET VOLUME 10.2 fL (9.0-12.2); MONOCYTES # (AUTO) 0.8 10^3/uL (0.0-1.0); MONOCYTES % (AUTO) 34 % (0-12); NEUTROPHILS # (AUTO) 0.6 10^3/uL (1.8-7.8); NEUTROPHILS % (AUTO) 23 % (42-75); WHITE BLOOD COUNT 2.4 10^3/uL (4.3-11.0)
[2021-11-16 09:29] LABS: PLATELET COUNT 33 10^3/uL (130-400)
[2021-11-16 09:39] LABS: CALCIUM 10.1 MG/DL (8.5-10.1); CREATININE SERUM 0.93 MG/DL (0.60-1.30); POTASSIUM 3.9 MMOL/L (3.6-5.0)
== END 2021-12-04 | disposition home or self-care (01) ==
LOC: ONC 09:14
PROVIDERS: ATTEND Internal Medicine Hematology & Oncology
DX: C93.10 Chronic myelomonocytic leukemia not having achieved remission (principal); D61.818 Other pancytopenia; I10 Essential (primary) hypertension; E78.2 Mixed hyperlipidemia; F32.9 Major depressive disorder, single episode, unspecified; Z98.890 Other specified postprocedural states; Z79.899 Other long term (current) drug therapy; Z72.0 Tobacco use
CPT/HCPCS: 80048; 81000; 85025; 96360

== ENCOUNTER 2022-04-12 22:59 | Emergency (ER) | payer MEDICARE ==
[~2022-04-12] VITALS: Ht 170 cm; Wt 68.7 kg
[~2022-04-12 22:59] MED LIST changes: -NS IV 1000 ML (CANCER CTR) 1,000 ML ONE
[2022-04-12 23:14] VITALS: BP 145/72
--- NOTE | 2022-04-13 00:43 | ED General ---
General Chief Complaint: General Problems/Pain Stated Complaint: PORT TUBE NEEDS FIXED Nursing Triage Note: c/o bleeding from left chest port site tonight. dressing removed, port access removed. Source of Information: Patient Exam Limitations: No Limitations History of Present Illness Date Seen by Provider: Apr 12, 2022 Time Seen by Provider: 23:50 Initial Comments This is 76-year-old woman is a cancer patient who underwent lab assessment earlier in the day. Her port was accessed to draw the blood and was left in place in preparation for platelet transfusion tomorrow as she has significant thrombocytopenia. Patient disrupted the port when taking off her bra and it developed leaking around the insertion site. She denies any bleeding elsewhere. Allergies and Home Medications Allergies Coded Allergies: No Known Drug Allergies (Unverified , 08/17/21) Patient Home Medication List Home Medication List Reviewed: Yes Acetaminophen (Tylenol Extra Strength) 500 Mg Tablet, 1,000 MG PO Q8H PRN for PAIN-MILD (1-4), (Reported) Entered as Reported by: MARIA EUGENIA LÓPEZ on 03/17/21 1142 Carbidopa/Levodopa (Carbidopa-Levodopa 25-100 Tab) 1 Each Tablet, 1 EACH PO DAILY, (Reported) Entered as Reported by: ISADORA SRIVASTAVA on 08/17/21 1119 Cholecalciferol (Vitamin D3) (Vitamin D3) 25 Mcg Tablet, 25 MCG PO DAILY, (Reported) Entered as Reported by: MARIA EUGENIA LÓPEZ on 03/17/21 1142 Ciprofloxacin HCl (Cipro) Unknown Strength Tablet, Unknown Dose PO, (Reported) Entered as Reported by: ISADORA SRIVASTAVA on 08/17/21 1119 Colestipol HCl (Colestipol HCl) 1 Gm Tablet, 1 GM PO DAILY, (Reported) Entered as Reported by: ISADORA SRIVASTAVA on 08/17/21 1119 Cyproheptadine HCl (Cyproheptadine HCl) Unknown Strength Tablet, Unknown Dose PO, (Reported) Entered as Reported by: ISADORA SRIVASTAVA on 08/17/21 1119 Docusate Sodium (Docusate Sodium) 100 Mg Capsule, 100 MG PO BID PRN for CONSTIPATION-1ST LINE, (Reported) Entered as Reported by: MARIA EUGENIA LÓPEZ on 03/17/21 1142 Hydrocodone/Acetaminophen (Hydrocodone-Acetamin 5-325 mg) 1 Each Tablet, 1 TAB PO Q4H PRN for PAIN-MODERATE (5-7) Prescribed by: DELFINA FAULKNER on 08/18/21 1136 Ibuprofen (Ibuprofen) 600 Mg Tablet, 600 MG PO QID PRN for PAIN-MILD (1-4), (Reported) Entered as Reported by: MARIA EUGENIA LÓPEZ on 03/17/21 1142 Lactobacillus Rhamnosus GG (Culturelle) 1 Each Capsule, 1 EACH PO DAILY, (Reported) Entered as Reported by: ISADORA SRIVASTAVA on 08/17/21 1119 Leflunomide (Leflunomide) 10 Mg Tablet, 10 MG PO DAILY, (Reported) Entered as Reported by: ISADORA SRIVASTAVA on 08/17/21 1119 Levofloxacin (Levofloxacin) 250 Mg Tablet, 250 MG PO DAILY Prescribed by: BAYLEE ORTIZ on 11/10/21 1114 Ondansetron (Ondansetron Odt) 4 Mg Tab.rapdis, 4 MG PO Q4H Prescribed by: FAHAD VALLE on 05/24/21 2338 Polymyxin B Sulf/Trimethoprim (Polymyxin B-Tmp Eye Drops) 10 Ml Drops, 10 ML OP DAILY, (Reported) Entered as Reported by: ISADORA SRIVASTAVA on 08/17/21 1119 Prednisolone Acetate/Pf (Prednisolone Acet 1% Eye Drop) 5 Ml Drops.susp, 5 ML OP DAILY, (Reported) Entered as Reported by: ISADORA SRIVASTAVA on 08/17/21 111 Prednisone (Prednisone) 5 Mg Tablet, 5 MG PO DAILY, (Reported) Entered as Reported by: ISADORA SRIVASTAVA on 08/17/21 1119 Review of Systems Review of Systems Constitutional: no symptoms reported EENTM: no symptoms reported Respiratory: no symptoms reported Cardiovascular: no symptoms reported Gastrointestinal: no symptoms reported Genitourinary: no symptoms reported Musculoskeletal: no symptoms reported Skin: see HPI Psychiatric/Neurological: No Symptoms Reported Hematologic/Lymphatic: See HPI Immunological/Allergic: no symptoms reported Past Znvhmjz-Rnxhge-Bkhxzq Hx Patient Social History Tobacco Use?: No Substance use?: No Alcohol Use?: No Pt feels they are or have been: No Immunizations Up To Date First/Initial COVID19 Vaccinat: [employer] Second COVID19 Vaccination Mesfin: [employer] Third COVID19 Vaccination Date: OCT 2021 Seasonal Allergies Seasonal Allergies: No Past Medical History Surgery/Hospitalization HX: ANTERIOR/POSTERIOR REPAIR, WITH WOUND DEHISCENCE WITH I&D AND REVISION OFA/P REPAIRBILATERAL CATARACT SURGERY 12/2019COLONOSCOPIESBONE MARROW BIOPSY 2019 port placement, leukemia Surgeries: Yes Adenoidectomy, Bladder Surgery, Eye Surgery, Gallbladder, Hysterectomy, Tonsillectomy Respiratory: Yes COPD Currently Using CPAP: No Currently Using BIPAP: No Cardiac: Yes Coronary Artery Disease, High Cholesterol, Hypertension 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 Genitourinary: Yes (BLADDER PROLAPSE--S/P A/P REPAIR WITH REVISION) UTI-Chronic Gastrointestinal: Yes Diverticulosis Musculoskeletal: Yes (CHRONIC GENERALIZED PAIN ) Arthritis Endocrine: No HEENT: Yes (BILAT CATARACT SURGERY 12/2019) Cataract Cancer: Yes (LEUKEMIA (CURRENTLY)) Leukemia, Skin Did You Recieve Any Treatments: Yes What Type of Treatment Did You: Surgical Intervention Psychosocial: Yes Depression Integumentary: Yes Eczema Blood Disorders: Yes (LEUKEMIA) Adverse Reaction/Blood Tranf: Yes (HAS HAD BLOOD WITH NO REACTIONS) Family Medical History Heart Disease, Cancer, Stroke Noncontributory Physical Exam Vital Signs Vital Signs - First Documented 04/12/22 23:14 Temp 36.5 Pulse 66 Resp 18 B/P (MAP) 145/72 (96) Pulse Ox 99 O2 Delivery Room Air Capillary Refill : Less Than 3 Seconds Height, Weight, BMI Height: 5'7.00" Weight: 170lbs. oz. 77.395814us; 23.00 BMI Method:Stated General Appearance: No Apparent Distress, WD/WN HEENT: Normal ENT Inspection Skin: Normal Color, Warm/Dry, Other (Port insertion site with very minimal oozing of blood) Progress/Results/Core Measures Suspected Sepsis SIRS Temperature: Pulse: 66 Respiratory Rate: 18 Blood Pressure 145 /72 Mean: 96 Results/Orders Vital Signs/I&O 04/12/22 23:14 Temp 36.5 Pulse 66 Resp 18 B/P (MAP) 145/72 (96) Pulse Ox 99 O2 Delivery Room Air Capillary Refill : Less Than 3 Seconds Blood Pressure Mean: 96 Progress Note : Progress Note Port was removed by nursing staff and the dressing area clean. Patient had a slight oozing of blood from the puncture site. Ice and gentle pressure were being applied to help control bleeding. Departure Impression Primary Impression: Thrombocytopenia Additional Impression: Bleeding from port Disposition: 01 HOME, SELF-CARE Condition: Stable Departure-Patient Inst. Referrals: TIFFANI MARTINEZ DO (PCP/Family) Primary Care Physician Patient Instructions: Portacath Add. Discharge Instructions: Leave your port covered with a gauze bandage. Apply ice in 20-minute intervals if desired to help control bleeding. You may apply gentle pressure either with a hand or with a rice bag or sandbag. If your bleeding becomes more than a subtle issues, return to the emergency room. Otherwise, follow instructions from Dr. Nguyen as previously given. Call with questions or concerns. Return to the ER if you have any other worsening symptoms. All discharge instructions reviewed with patient and/or family. Voiced understanding. Copy Copies To 1: JOSE ALBERTO NGUYEN JOSHUA T MD Apr 13, 2022 00:43
== END 2022-04-13 00:44 | disposition home or self-care (01) ==
LOC: EDUNIT# 22:59 → ER 23:02
DX: T82.838A Hemorrhage due to vascular prosthetic devices, implants and grafts, initial encounter (principal); D69.6 Thrombocytopenia, unspecified; C95.90 Leukemia, unspecified not having achieved remission
CPT/HCPCS: 99281

== ENCOUNTER 2022-08-28 09:51 | Emergency (ER) | payer MEDICARE ==
[~2022-08-28] VITALS: Ht 170.1 cm; Wt 68.7 kg
[~2022-08-28 09:51] MED LIST changes: -CARB1TAB19 PO; +CARB1TAB32 PO; +LEVO250T66 PO; -LVF250T PO; -PLTR10OP OP; +POLY10DR31 OP
--- NOTE | 2022-08-28 10:37 | ED Cough/URI ---
General Chief Complaint: COVID19 Suspect/Confirmed Stated Complaint: SORE THROAT/BODY ACHES/FATIQUE/COUGH Nursing Triage Note: PATIENT STATES SHE WAS SENT OVER BY DR BRUNER OFFICE FOR A COVID AND FLU SWAB. PATIENT STATES SHE HAS HAD A SORE THROAT AND GENERAL COLD SYMPTOMS FOR ABOUT 2 WEEKS. Source: patient Exam Limitations: no limitations History of Present Illness Date Seen by Provider: Aug 28, 2022 Time Seen by Provider: 10:20 Initial Comments Patient is a 76-year-old female who presents to the emergency department at the direction of her cancer doctor and for a COVID swab. Patient relates that she has had "flulike symptoms" for the last 10 days or so. She is COVID vaccinated with 1 booster. She endorses congestion, dry cough and a sore throat. No chest pain, shortness of breath, abdominal pain, nausea vomiting or diarrhea. No urinary complaints. No rashes joint pain or swelling. No headache. No known positive COVID contacts. She is around 3 grandchildren that are school-age but none of them are sick currently. She is not a diabetic. She has been taking some DayQuil for her symptoms. All other review of systems reviewed and negative except as stated Timing/Duration: other (10 days) Severity/Quality: dry cough Associated Symptoms: sore throat Allergies and Home Medications Allergies Coded Allergies: No Known Drug Allergies (Unverified , 08/28/22) Patient Home Medication List Home Medication List Reviewed: Yes Acetaminophen (Tylenol Extra Strength) 500 Mg Tablet, 1,000 MG PO Q8H PRN for PAIN-MILD (1-4), (Reported) Entered as Reported by: MARIA EUGENIA LÓPEZ on 03/17/21 1142 Carbidopa/Levodopa (Carbidopa-Levodopa 25-100 Tab) 1 Each Tablet, 1 EACH PO DAILY, (Reported) Entered as Reported by: ISADORA SRIVASTAVA on 08/17/21 1119 Cholecalciferol (Vitamin D3) (Vitamin D3) 25 Mcg Tablet, 25 MCG PO DAILY, (Reported) Entered as Reported by: MARIA EUGENIA LÓPEZ on 03/17/21 1142 Ciprofloxacin HCl (Cipro) Unknown Strength Tablet, Unknown Dose PO, (Reported) Entered as Reported by: ISADORA SRIVASTAVA on 08/17/21 1119 Colestipol HCl (Colestipol HCl) 1 Gm Tablet, 1 GM PO DAILY, (Reported) Entered as Reported by: ISADORA SRIVASTAVA on 08/17/21 111 Cyproheptadine HCl (Cyproheptadine HCl) Unknown Strength Tablet, Unknown Dose PO, (Reported) Entered as Reported by: ISADORA SRIVASTAVA on 08/17/21 111 Docusate Sodium (Docusate Sodium) 100 Mg Capsule, 100 MG PO BID PRN for CONSTIPATION-1ST LINE, (Reported) Entered as Reported by: MARIA EUGENIA LÓPEZ on 03/17/21 1142 Hydrocodone/Acetaminophen (Hydrocodone-Acetamin 5-325 mg) 1 Each Tablet, 1 TAB PO Q4H PRN for PAIN-MODERATE (5-7) Prescribed by: DELFINA FAULKNER on 08/18/21 1136 Ibuprofen (Ibuprofen) 600 Mg Tablet, 600 MG PO QID PRN for PAIN-MILD (1-4), (Reported) Entered as Reported by: MARIA EUGENIA LÓPEZ on 03/17/21 1142 Lactobacillus Rhamnosus GG (Culturelle) 1 Each Capsule, 1 EACH PO DAILY, (Reported) Entered as Reported by: ISADORA SRIVASTAVA on 08/17/21 111 Leflunomide (Leflunomide) 10 Mg Tablet, 10 MG PO DAILY, (Reported) Entered as Reported by: ISADORA SRIVASTAVA on 08/17/21 111 Levofloxacin (Levofloxacin) 250 Mg Tablet, 250 MG PO DAILY Prescribed by: BAYLEE ORTIZ on 11/10/21 1114 Ondansetron (Ondansetron Odt) 4 Mg Tab.rapdis, 4 MG PO Q4H Prescribed by: FAHAD VALLE on 05/24/21 2338 Polymyxin B Sulf/Trimethoprim (Polymyxin B-Tmp Eye Drops) 10 Ml Drops, 10 ML OP DAILY, (Reported) Entered as Reported by: ISADORA SRIVASTAVA on 08/17/21 111 Prednisolone Acetate/Pf (Prednisolone Acet 1% Eye Drop) 5 Ml Drops.susp, 5 ML OP DAILY, (Reported) Entered as Reported by: ISADORA SRIVASTAVA on 08/17/21 111 Prednisone (Prednisone) 5 Mg Tablet, 5 MG PO DAILY, (Reported) Entered as Reported by: ISADORA SRIVASTAVA on 08/17/21 111 Review of Systems Review of Systems Constitutional: see HPI, malaise EENTM: throat pain Respiratory: cough Cardiovascular: no symptoms reported Gastrointestinal: no symptoms reported Genitourinary: no symptoms reported Musculoskeletal: no symptoms reported Skin: no symptoms reported Psychiatric/Neurological: No Symptoms Reported All Other Systems Reviewed Negative Unless Noted: Yes Past Guhnwyl-Hireac-Lfthih Hx Patient Social History Tobacco Use?: No Use of E-Cig and/or Vaping dev: No Substance use?: No Alcohol Use?: No Pt feels they are or have been: No Immunizations Up To Date Influenza Vaccine Up-to-Date: No; Not Current First/Initial COVID19 Vaccinat: 2020 Second COVID19 Vaccination Mesfin: 2020 Third COVID19 Vaccination Date: OCT 2021 Seasonal Allergies Seasonal Allergies: No Past Medical History Surgery/Hospitalization HX: ANTERIOR/POSTERIOR REPAIR, WITH WOUND DEHISCENCE WITH I&D AND REVISION OFA/P REPAIR, BILATERAL CATARACT SURGERY 12/2019COLONOSCOPIES, BONE MARROW BIOPSY 2019 port placement, leukemia Surgeries: Yes Adenoidectomy, Bladder Surgery, Eye Surgery, Gallbladder, Hysterectomy, Tonsillectomy Respiratory: Yes COPD Currently Using CPAP: No Currently Using BIPAP: No Cardiac: Yes Coronary Artery Disease, High Cholesterol, Hypertension 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 Genitourinary: Yes (BLADDER PROLAPSE--S/P A/P REPAIR WITH REVISION) UTI-Chronic Gastrointestinal: Yes Diverticulosis Musculoskeletal: Yes (CHRONIC GENERALIZED PAIN ) Arthritis Endocrine: No HEENT: Yes (BILAT CATARACT SURGERY 12/2019) Cataract Cancer: Yes (LEUKEMIA (CURRENTLY)) Leukemia, Skin Did You Recieve Any Treatments: Yes What Type of Treatment Did You: Surgical Intervention Psychosocial: Yes Depression Integumentary: Yes Eczema Blood Disorders: Yes (LEUKEMIA) Adverse Reaction/Blood Tranf: Yes (HAS HAD BLOOD WITH NO REACTIONS) Family Medical History Heart Disease, Cancer, Stroke Noncontributory Physical Exam Vital Signs - First Documented 08/28/22 09:55 Temp 35.9 Pulse 86 Resp 16 B/P (MAP) 142/87 (105) Pulse Ox 96 O2 Delivery Room Air Capillary Refill : Less Than 3 Seconds Height: 5'7.00" Weight: 170lbs. oz. [id number]; 23.00 BMI Method:Stated General Appearance: WD/WN, no apparent distress Eyes: Bilateral Eye Normal Inspection, Bilateral Eye PERRL, Bilateral Eye EOMI HEENT: normal ENT inspection, pharynx normal, pharyngeal erythema (Slight pharyngeal erythema with a little bit more erythema noted on the left.) Neck: normal inspection, lymphadenopathy (L) (Anterior cervical lymphadenopathy on the left more than the right) Respiratory: lungs clear, normal breath sounds, no respiratory distress, no ac cessory muscle use Cardiovascular: regular rate, rhythm Extremities: normal range of motion, non-tender, normal inspection, no pedal edema, no calf tenderness Neurologic/Psychiatric: alert, normal mood/affect, oriented x 3 Skin: normal color, warm/dry Progress/Results/Core Measures Suspected Sepsis SIRS Temperature: Pulse: 86 Respiratory Rate: 16 Blood Pressure 142 /87 Mean: 105 Results/Orders Lab Results Laboratory Tests Test 08/28/22 10:05 Range/Units Influenza Type A (RT-PCR) Not Detected Not Detecte Influenza Type B (RT-PCR) Not Detected Not Detecte SARS-CoV-2 RNA (RT-PCR) Not Detected Not Detecte My Orders Orders - BAYLEE ORTIZ MD Covid 19 Inhouse Test (08/28/22 10:05) Influenza A And B By Pcr (08/28/22 10:05) Isolation Central Supply Req (08/28/22 10:05) Vital Signs/I&O 08/28/22 08/28/22 09:55 11:24 Temp 35.9 Pulse 86 79 Resp 16 18 B/P (MAP) 142/87 (105) 132/64 Pulse Ox 96 96 O2 Delivery Room Air Capillary Refill : Less Than 3 Seconds Blood Pressure Mean: 105 Progress Note : Time: 10:57 Progress Note COvid NEG Departure Impression Primary Impression: Viral syndrome Additional Impression: Pharyngitis Qualified Codes: J02.9 - Acute pharyngitis, unspecified Disposition: HOME, SELF-CARE Condition: Stable Departure-Patient Inst. Decision time for Depature: 10:37 Referrals: TIFFANI MARTINEZ DO (PCP/Family) Primary Care Physician Patient Instructions: Viral Syndrome (DC) Add. Discharge Instructions: Drink plenty of fluids to stay well-hydrated. Warm salt water gargles may help your sore throat. Lzwu-gxb-numbzlh ibuprofen 3 tablets which is 600 mg every 6 hours as needed for pain. You should take an acid operations agent such as generic Pepcid, Zantac or Prilosec daily while taking ibuprofen. If you develop worsening symptoms such as high fever, shortness of breath, vomit ing please come back to the emergency room for reevaluation. Please keep your follow-up appointments with your primary care doctor as well as her cancer doctor as scheduled. BAYLEE ORTIZ MD Aug 28, 2022 10:37
[2022-08-28 11:24] VITALS: BP 132/64
== END 2022-08-28 11:20 | disposition home or self-care (01) ==
LOC: EDUNIT# 09:51 → ER 09:53
DX: J02.9 Acute pharyngitis, unspecified (principal); B34.9 Viral infection, unspecified; Z20.822 Contact with and (suspected) exposure to COVID-19
CPT/HCPCS: 87636; 99283

== ENCOUNTER 2023-01-18 13:11 | Inpatient (IN) | payer MEDICARE ==
[~2023-01-18] VITALS: Ht 172 cm; Wt 64.0 kg
--- NOTE | 2023-01-18 13:31 | ED Trauma-Multisystem ---
General Chief Complaint: Trauma-Non Activation Stated Complaint: FALL | DIARRHEA | CLOTTING DISORDER Source of Information: Patient, Family Exam Limitations: No Limitations History of Present Illness Date Seen by Provider: Jan 18, 2023 Time Seen by Provider: 13:31 Initial Comments Patient is a 77-year-old female with history of myelodysplastic syndrome and transition who presents with generalized weakness, accidental fall from standing and concern for dehydration. She had an accidental fall due to lack of strength when attempting to get out of bed. Patient did not hit her head and d enies acute pain complaint. She landed next to her bed stand on carpeted floor. She is not on anticoagulation therapy but does have history of low platelets. She has previously hit her head earlier this week and complains of mild headache and has a bruise over her right frontal scalp. She reports fatigue dizziness and decreased oral intake. She has also had dark diarrhea earlier today. She has not had fever chills sweats. No other acute symptoms or complaints. Additional history from the patient's daughter. Occurred: Other Pain/Injury Location: Other Method of Injury: Other Modifying Factors: Other Associated Symptoms (Fall): Other Allergies and Home Medications Allergies Coded Allergies: No Known Drug Allergies (Unverified , 08/28/22) Patient Home Medication List Home Medication List Reviewed: Yes Acetaminophen (Tylenol Extra Strength) 500 Mg Tablet, 1,000 MG PO Q8H PRN for PAIN-MILD (1-4), (Reported) Entered as Reported by: MARIA EUGENIA LÓPEZ on 03/17/21 1142 Carbidopa/Levodopa (Carbidopa-Levodopa 25-100 Tab) 1 Each Tablet, 1 EACH PO DAILY, (Reported) Entered as Reported by: ISADORA SRIVASTAVA on 08/17/21 1119 Cholecalciferol (Vitamin D3) (Vitamin D3) 25 Mcg Tablet, 25 MCG PO DAILY, (Reported) Entered as Reported by: MARIA EUGENIA LÓPEZ on 03/17/21 1142 Ciprofloxacin HCl (Cipro) Unknown Strength Tablet, Unknown Dose PO, (Reported) Entered as Reported by: ISADORA SRIVASTAVA on 08/17/21 1119 Colestipol HCl (Colestipol HCl) 1 Gm Tablet, 1 GM PO DAILY, (Reported) Entered as Reported by: ISADORA SRIVASTAVA on 08/17/21 1119 Cyproheptadine HCl (Cyproheptadine HCl) Unknown Strength Tablet, Unknown Dose PO, (Reported) Entered as Reported by: ISADORA SRIVASTAVA on 08/17/21 1119 Docusate Sodium (Docusate Sodium) 100 Mg Capsule, 100 MG PO BID PRN for CONSTIPATION-1ST LINE, (Reported) Entered as Reported by: MARIA EUGENIA LÓPEZ on 03/17/21 1142 Hydrocodone/Acetaminophen (Hydrocodone-Acetamin 5-325 mg) 1 Each Tablet, 1 TAB PO Q4H PRN for PAIN-MODERATE (5-7) Prescribed by: DELFINA FAULKNER on 08/18/21 1136 Ibuprofen (Ibuprofen) 600 Mg Tablet, 600 MG PO QID PRN for PAIN-MILD (1-4), (Reported) Entered as Reported by: MARIA EUGENIA LÓPEZ on 03/17/21 1142 Lactobacillus Rhamnosus GG (Culturelle) 1 Each Capsule, 1 EACH PO DAILY, (Reported) Entered as Reported by: ISADORA SRIVASTAVA on 08/17/21 1119 Leflunomide (Leflunomide) 10 Mg Tablet, 10 MG PO DAILY, (Reported) Entered as Reported by: ISADORA SRIVASTAVA on 08/17/21 1119 Levofloxacin (Levofloxacin) 250 Mg Tablet, 250 MG PO DAILY Prescribed by: BAYLEE ORTIZ on 11/10/21 1114 Ondansetron (Ondansetron Odt) 4 Mg Tab.rapdis, 4 MG PO Q4H Prescribed by: FAHAD VALLE on 05/24/21 2338 Polymyxin B Sulf/Trimethoprim (Polymyxin B-Tmp Eye Drops) 10 Ml Drops, 10 ML OP DAILY, (Reported) Entered as Reported by: ISADORA SRIVASTAVA on 08/17/21 1119 Prednisolone Acetate/Pf (Prednisolone Acet 1% Eye Drop) 5 Ml Drops.susp, 5 ML OP DAILY, (Reported) Entered as Reported by: ISADORA SRIVASTAVA on 08/17/21 1119 Prednisone (Prednisone) 5 Mg Tablet, 5 MG PO DAILY, (Reported) Entered as Reported by: ISADORA SRIVASTAVA on 08/17/21 111 Past Halcsut-Stendy-Bbiooe Hx Patient Social History Tobacco Use?: No Substance use?: No Alcohol Use?: No Pt feels they are or have been: No Immunizations Up To Date First/Initial COVID19 Vaccinat: 2020 Second COVID19 Vaccination Mesfin: 2020 Third COVID19 Vaccination Date: OCT 2021 Seasonal Allergies Seasonal Allergies: No Past Medical History Surgery/Hospitalization HX: ANTERIOR/POSTERIOR REPAIR, WITH WOUND DEHISCENCE WITH I&D AND REVISION OFA/P REPAIR, BILATERAL CATARACT SURGERY 12/2019COLONOSCOPIES, BONE MARROW BIOPSY 2019 port placement, leukemia Surgeries: Yes Adenoidectomy, Bladder Surgery, Eye Surgery, Gallbladder, Hysterectomy, Tonsillectomy Respiratory: Yes COPD Currently Using CPAP: No Currently Using BIPAP: No Cardiac: Yes Coronary Artery Disease, High Cholesterol, Hypertension 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 Genitourinary: Yes (BLADDER PROLAPSE--S/P A/P REPAIR WITH REVISION) UTI-Chronic Gastrointestinal: Yes Diverticulosis Musculoskeletal: Yes (CHRONIC GENERALIZED PAIN ) Arthritis Endocrine: No HEENT: Yes (BILAT CATARACT SURGERY 12/2019) Cataract Cancer: Yes (LEUKEMIA (CURRENTLY)) Leukemia, Skin Did You Recieve Any Treatments: Yes What Type of Treatment Did You: Surgical Intervention Psychosocial: Yes Depression Integumentary: Yes Eczema Blood Disorders: Yes (LEUKEMIA) Adverse Reaction/Blood Tranf: Yes (HAS HAD BLOOD WITH NO REACTIONS) Family Medical History Heart Disease, Cancer, Stroke Noncontributory Physical Exam Vital Signs Vital Signs - First Documented 01/18/23 13:24 Temp 37.4 Pulse 114 Resp 18 B/P (MAP) 191/79 (116) Pulse Ox 97 Height, Weight, BMI Height: 5'7.00" Weight: 170lbs. oz. 77.334844wa; 23.00 BMI Method:Stated Focused Exam Lactate Level 01/18/23 13:57: Lactic Acid Level 1.15 Lactic Acid Level Laboratory Tests Test 01/18/23 13:57 Lactic Acid Level 1.15 MMOL/L (0.50-2.00) Progress/Results/Core Measures Results/Orders Lab Results Laboratory Tests Test 01/18/23 13:57 Range/Units White Blood Count 8.3 4.3-11.0 10^3/uL Red Blood Count 2.69 L 3.80-5.11 10^6/uL Hemoglobin 6.5 *L 11.5-16.0 g/dL Hematocrit 21 L 35-52 % Mean Corpuscular Volume 79 L 80-99 fL Mean Corpuscular Hemoglobin 24 L 25-34 pg Mean Corpuscular Hemoglobin Concent 31 L 32-36 g/dL Red Cell Distribution Width 19.4 H 10.0-14.5 % Platelet Count 50 L 130-400 10^3/uL Mean Platelet Volume 10.1 9.0-12.2 fL Immature Granulocyte % (Auto) 4 % Neutrophils (%) (Auto) 48 42-75 % Lymphocytes (%) (Auto) 10 L 12-44 % Monocytes (%) (Auto) 38 H 0-12 % Eosinophils (%) (Auto) 0 0-10 % Basophils (%) (Auto) 0 0-10 % Neutrophils # (Auto) 4.0 1.8-7.8 10^3/uL Lymphocytes # (Auto) 0.8 L 1.0-4.0 10^3/uL Monocytes # (Auto) 3.2 H 0.0-1.0 10^3/uL Eosinophils # (Auto) 0.0 0.0-0.3 10^3/uL Basophils # (Auto) 0.0 0.0-0.1 10^3/uL Immature Granulocyte # (Auto) 0.4 H 0.0-0.1 10^3/uL Neutrophils % (Manual) 58 % Lymphocytes % (Manual) 6 % Monocytes % (Manual) 33 % Atypical Lymphocytes 3 % Percent Immature Platelet Fraction 2.0 0.0-7.6 % Hypochromasia SLIGHT Anisocytosis MODERATE Microcytosis MODERATE Spherocytes SLIGHT Acanthocytes SLIGHT Schistocytes SLIGHT Prothrombin Time 17.0 H 12.2-14.7 SEC INR Comment 1.3 0.8-1.4 Activated Partial Thromboplast Time 42 H 24-35 SEC Sodium Level 132 L 135-145 MMOL/L Potassium Level 3.8 3.6-5.0 MMOL/L Chloride Level 99 98-107 MMOL/L Carbon Dioxide Level 19 L 21-32 MMOL/L Anion Gap 14 5-14 MMOL/L Blood Urea Nitrogen 16 7-18 MG/DL Creatinine 0.89 0.60-1.30 MG/DL Estimat Glomerular Filtration Rate 66 BUN/Creatinine Ratio 18 Glucose Level 103 70-105 MG/DL Lactic Acid Level 1.15 0.50-2.00 MMOL/L Calcium Level 9.0 8.5-10.1 MG/DL Corrected Calcium 9.6 8.5-10.1 MG/DL Total Bilirubin 0.6 0.1-1.0 MG/DL Aspartate Amino Transf (AST/SGOT) 20 5-34 U/L Alanine Aminotransferase (ALT/SGPT) 13 0-55 U/L Alkaline Phosphatase 74 40-136 U/L Troponin I < 0.028 <0.028 NG/ML Total Protein 7.4 6.4-8.2 GM/DL Albumin 3.3 3.2-4.5 GM/DL My Orders Orders - LAKESHIA RANKIN DO Ct Head Wo (01/18/23 13:32) Cbc With Automated Diff (01/18/23 13:32) Comprehensive Metabolic Panel (01/18/23 13:32) Blood Culture (01/18/23 13:32) Urinalysis (01/18/23 13:32) Urine Culture (01/18/23 13:32) Protime With Inr (01/18/23 13:32) Partial Thromboplastin Time (01/18/23 13:32) Chest 1 View, Ap/Pa Only (01/18/23 13:32) Ed Iv/Invasive Line Start (01/18/23 13:32) Ed Iv/Invasive Line Start (01/18/23 13:32) Vital Signs Adult Sepsis Patie Q15M (01/18/23 13:32) O2 (01/18/23 13:32) Remove Rings In Anticipation O (01/18/23 13:32) Lactic Acid Analyzer (01/18/23 13:32) Ns Iv 1000 Ml (Sodium Chloride 0.9%) (01/18/23 13:45) Fecal Occult Bedside (01/18/23 13:32) Troponin I Brianda (01/18/23 13:35) Manual Differential (01/18/23 13:57) Vital Signs/I&O 01/18/23 01/18/23 13:24 14:12 Temp 37.4 37.4 Pulse 114 114 Resp 18 18 B/P (MAP) 191/79 (116) 191/79 (116) Pulse Ox 97 97 Departure Communication (Admissions) CT head: No acute findings per radiology report Patient with accidental fall from standing secondary to generalized weakness/symptomatic anemia related to myelodysplastic syndrome and GI bleed. Positive Hemoccult blood. Platelets hemoglobin is 6.5, which represents an acute drop. Patient's hemoglobin typically greater than 9. Patient received platelet transfusion yesterday per Dr. Mg. Recommendations are to transfuse packed red blood cells to maintain hemoglobin greater than 8, and transfuse platelets to maintain hemoglobin greater than 40 and to treat under lying GI bleed. Dr. Canada available to see in consult as needed. Patient to be admitted to the hospitalist service. Impression Primary Impression: Generalized weakness Additional Impressions: Symptomatic anemia Thrombocytopenia GI bleed Myelodysplastic syndrome Disposition: ADMITTED INPATIENT Condition: Critical Admissions Decision to Admit Reason: Admit from ER (General) Decision to Admit/Date: Jan 18, 2023 Time/Decision to Admit Time: 14:50 Departure-Patient Inst. Referrals: TIFFANI MARTINEZ DO (PCP/Family) Primary Care Physician LAKESHIA RANKIN DO Jan 18, 2023 13:31
[2023-01-18] MEDS ORDERED: NS IV 1000 ML 1,000 ML IV SCH (13:45)
[2023-01-18 14:08] LABS: BASOPHILS % (AUTO) 0 % (0-10)
[2023-01-18 14:10] LABS: EOSINOPHILS % (AUTO) 0 % (0-10); HEMATOCRIT 21 % (35-52); LYMPHOCYTES # (AUTO) 0.8 10^3/uL (1.0-4.0); LYMPHOCYTES % (AUTO) 10 % (12-44); MEAN CORPUSCULAR HEMOGLOBIN 24 pg (25-34); MEAN CORPUSCULAR HGB CONC 31 g/dL (32-36); MEAN CORPUSCULAR VOLUME 79 fL (80-99); MEAN PLATELET VOLUME 10.1 fL (9.0-12.2); MONOCYTES # (AUTO) 3.2 10^3/uL (0.0-1.0); MONOCYTES % (AUTO) 38 % (0-12); NEUTROPHILS % (AUTO) 48 % (42-75); PLATELET COUNT 50 10^3/uL (130-400); WHITE BLOOD COUNT 8.3 10^3/uL (4.3-11.0)
--- NOTE | 2023-01-18 14:14 | Diagnostic Imaging Report ---
INDICATION: Weakness, cough. TECHNIQUE: Single view chest 2:00 PM. CORRELATION STUDY: 08/18/2021 FINDINGS: The heart size, mediastinal configuration and pulmonary vascularity are within normal limits. The lungs are clear with no consolidating infiltrate. Minimal right basilar atelectasis. There is no significant effusion or pneumothorax. IMPRESSION: 1. Negative appearing single view chest. Dictated by: Dictated on workstation # [id number]
[2023-01-18 14:15] LABS: HEMOGLOBIN 6.5 g/dL (11.5-16.0)
[2023-01-18 14:20] LABS: ALBUMIN 3.3 GM/DL (3.2-4.5)
[2023-01-18 14:21] LABS: CHLORIDE 99 MMOL/L (98-107); POTASSIUM 3.8 MMOL/L (3.6-5.0); SODIUM 132 MMOL/L (135-145)
[2023-01-18 14:22] LABS: INR 1.3 (0.8-1.4)
[2023-01-18 14:23] LABS: GLUCOSE 103 MG/DL (70-105); TOTAL PROTEIN 7.4 GM/DL (6.4-8.2)
[2023-01-18 14:24] LABS: CARBON DIOXIDE 19 MMOL/L (21-32)
[2023-01-18 14:25] LABS: BILIRUBIN,TOTAL 0.6 MG/DL (0.1-1.0)
[2023-01-18 14:26] LABS: ALKALINE PHOSPHATASE 74 U/L (40-136)
[2023-01-18 14:27] LABS: CREATININE SERUM 0.89 MG/DL (0.60-1.30); GFR ESTIMATED 66
[2023-01-18 14:28] LABS: BUN/CREATININE RATIO 18
[2023-01-18 14:30] LABS: ALANINE AMINOTRANSFERASE 13 U/L (0-55)
[2023-01-18 14:38] LABS: LYMPHOCYTES % (MANUAL) 6 %; NEUTROPHILS % (MANUAL) 58 %
[2023-01-18 14:39] LABS: ATYPICAL LYMPHOCYTES 3 %; HYPOCHROMASIA SLIGHT; MONOCYTES % (MANUAL) 33 %
--- NOTE | 2023-01-18 14:39 | Diagnostic Imaging Report ---
PROCEDURE: CT head without contrast. TECHNIQUE: Multiple contiguous axial images were obtained through the brain without the use of intravenous contrast. Auto Exposure Controls were utilized during the CT exam to meet ALARA standards for radiation dose reduction. INDICATION: 77-year-old female, status post fall, on anticoagulation. Trauma to the right periorbital region. CORRELATION: None FINDINGS: There is mild diffuse atrophic changes with prominence of the ventricles and sulci. There is mild scattered areas of decreased attenuation, nonspecific but likely changes of chronic small vessel ischemic disease. There is otherwise normal frazier-white differentiation. No abnormal areas of attenuation to suggest edema from ischemia. There is no midline shift or mass effect. No evidence for acute intracranial hemorrhage or abnormal extra-axial fluid collection. Bony calvarium is intact. Paranasal sinuses with minimal mucosal thickening left maxillary sinus. Likely prior left sinus surgery. Prior bilateral lens replacement. Mastoid air cells also appear clear. IMPRESSION: 1. Negative for acute traumatic intracranial abnormality. Dictated by: Dictated on workstation # [id number]
[2023-01-18 14:40] LABS: ANISOCYTOSIS MODERATE; MICROCYTOSIS MODERATE
[2023-01-18 14:43] LABS: ACANTHOCYTES SLIGHT; SCHISTOCYTES SLIGHT; SPHEROCYTES SLIGHT
[2023-01-18] MEDS ORDERED: PANTOPRAZOLE 40 MG (PROTONIX) VIAL IV ONE (15:00)
[2023-01-18] MEDS ORDERED: LACTULOSE SYRUP 10GM/15ML (ENULOSE) 30ML UDC PO PRN (18:15)
[2023-01-18] MEDS ORDERED: ACETAMINOPHEN 325 MG TABLET PO PRN (18:15)
[2023-01-18] MEDS ORDERED: BISACODYL 10 MG SUPP (DULCOLAX) PR PRN (18:15)
[2023-01-18] MEDS ORDERED: CALCIUM CARBONATE 500 MG (TUMS) TAB.CHEW PO PRN (18:15)
[2023-01-18] MEDS ORDERED: MILK OF MAGNESIA 400 MG/5 ML 30 ML UDC PO PRN (18:15)
[2023-01-18] MEDS ORDERED: ONDANSETRON 4 MG (ZOFRAN) ORAL DISSOLVE TAB PO PRN (18:15)
[2023-01-18] MEDS ORDERED: ONDANSETRON 4 MG/2 ML (SDV) Z0FRAN IV PRN (18:15)
[2023-01-18] MEDS ORDERED: NS IV 500 ML 500 ML IV PRN (18:15)
[2023-01-18] MEDS ORDERED: ANTACID SUSP 30 ML UDC (MYLANTA) PO PRN (18:15)
[2023-01-18] MEDS ORDERED: polyethylene glycoL POWDER 17 GM (MIRALAX) PACK PO PRN (18:15)
[2023-01-18] MEDS ORDERED: NS IV 500 ML 500 ML ONE (18:49)
[2023-01-18 18:57] VITALS: BP 135/56
[2023-01-18 19:12] VITALS: BP 127/74
[2023-01-18 19:32] VITALS: BP 135/63
[2023-01-18 21:30] VITALS: BP 145/66
--- NOTE | 2023-01-18 22:10 | CONSULTATION REPORT ---
DATE OF SERVICE: 01/18/2023 ADMITTING PHYSICIAN: Mary Ryan MD ATTENDING PRIMARY CARE PHYSICIAN: Zaid Mario DO HISTORY OF PRESENT ILLNESS: The patient is a 77-year-old female with a history of myelodysplastic syndrome, who developed generalized weakness and sustained a same level fall. The patient also has not been drinking much and appears to be dehydrated. She states that she did hit the top of her head; however, she does not have any headache, visual changes or any focal deficits. The patient was found to be anemic with a hemoglobin of 6.5. The patient is not on any anticoagulation; however, has a longstanding history of thrombocytopenia. The patient does not report any nausea or vomiting as well as no hematemesis, no coffee-ground emesis. It appears that she has had some diarrhea, which has been darker in coloration. Had some diarrhea earlier today, which was slightly darker in coloration. No bright red blood per rectum. The patient was initially having difficulties in 08/2021 and was seen at [facility]. She had developed COVID the previous summer and spent 10 days at [facility] and did have a difficult recovery and did lose approximately 30 pounds. The plan was to treat her on medications for the myelodysplastic syndrome and we were consulted for placement of a groshong implantable catheter, which was done on 08/18/2021. She is currently in no acute distress. PAST MEDICAL HISTORY: Chronic myelogenous leukemia, hypertension, degenerative joint disease, anxiety, depression, gastroesophageal reflux disease, hypercholesterolemia, Parkinson's disease. PAST SURGICAL HISTORY: Total hysterectomy in 1979, cholecystectomy, cystocele and rectocele repair. ALLERGIES: No known drug allergies. MEDICATIONS: Carbidopa/levodopa 25/100 mg daily, ciprofloxacin daily, colestipol daily, cyproheptadine daily, Colace 100 mg b.i.d., hydrocodone p.r.n., leflunomide 10 mg daily, polymyxin B eye drops daily, prednisone acetate eye drops daily, prednisone 5 mg daily. SOCIAL HISTORY: Negative smoke, negative alcohol. FAMILY HISTORY: Noncontributory. REVIEW OF SYSTEMS: This is a well-nourished female, currently in no acute distress. She is not experiencing any shortness of breath or difficulty breathing. No chest pain, palpitations, diaphoresis. No nausea, vomiting. No hematemesis, no coffee-ground emesis. She has been having some loose stools in the past 24 hours, which she feels is slightly darker in coloration. No bright red blood per rectum. No fever, chills, no recent inadvertent weight loss. All other review of systems negative. PHYSICAL EXAMINATION: VITAL SIGNS: Temperature 37.3, blood pressure 135/63, pulse 101, respirations 18, pulse ox 95% on room air. HEENT: No scleral icterus. No cervical lymphadenopathy. CHEST: Few scattered rales bilaterally. HEART: Regular. No murmurs. EXTREMITIES: No lower extremity edema. Negative Homans sign. ABDOMEN: Soft, nontender, nondistended. SKIN: Warm, dry. LABORATORY DATA: WBC 8.3, hemoglobin 6.5, hematocrit 21, platelets 50, BUN 16, creatinine 0.89. Liver function enzymes normal. ASSESSMENT AND PLAN: A 77-year-old female with myelodysplastic syndrome with anemia. We will investigate when her last endoscopies were, which could include a colonoscopy as well as an EGD. Based on previous EMR records at this institution, she did have a colonoscopy in 01/2013, where she was found to have moderate sigmoid diverticulosis. We will continue to monitor the patient as well as resuscitation with blood products as necessary. If she does have a history of worsening peptic ulcer disease or gastroesophageal reflux disease, we may proceed with an EGD as well as biopsies as appropriate on this admission. Job ID: [id number] DocumentID: [id number] Dictated Date: 01/18/2023 21:43:27 Computer Art Instructor Date: 01/18/2023 22:08:00 Dictated By: DELFINA FAULKNER MD [facility]
[2023-01-18] MEDS: DOCUSATE SODIUM 100 MG (COLACE) CAP PO SCH (23:04)
[2023-01-18] MEDS: SENNOSIDES 8.6 MG (SENOKOT) TAB PO SCH (23:04)
[2023-01-18] MEDS: PANTOPRAZOLE 40 MG (PROTONIX) VIAL IV SCH (23:04)
[2023-01-18 23:46] VITALS: BP 138/61
[2023-01-18 23:47] VITALS: BP 138/61
[2023-01-19] VITALS (12 sets, daily range): BP systolic 120–158; BP diastolic 56–90
[2023-01-19] MEDS: LACTATED RINGERS 1,000 ML IV SCH ×4 (02:31→17:55)
[2023-01-19 04:57] LABS: BASOPHILS % (AUTO) 0 % (0-10); EOSINOPHILS % (AUTO) 0 % (0-10); HEMATOCRIT 28 % (35-52); HEMOGLOBIN 8.9 g/dL (11.5-16.0); LYMPHOCYTES # (AUTO) 1.1 10^3/uL (1.0-4.0); LYMPHOCYTES % (AUTO) 12 % (12-44); MEAN CORPUSCULAR HEMOGLOBIN 25 pg (25-34); MEAN CORPUSCULAR HGB CONC 32 g/dL (32-36); MEAN CORPUSCULAR VOLUME 80 fL (80-99); MEAN PLATELET VOLUME 9.7 fL (9.0-12.2); MONOCYTES # (AUTO) 3.7 10^3/uL (0.0-1.0); MONOCYTES % (AUTO) 43 % (0-12); NEUTROPHILS # (AUTO) 3.4 10^3/uL (1.8-7.8); NEUTROPHILS % (AUTO) 40 % (42-75); WHITE BLOOD COUNT 8.5 10^3/uL (4.3-11.0)
[2023-01-19 05:08] LABS: CALCIUM 8.7 MG/DL (8.5-10.1)
[2023-01-19 05:12] LABS: CREATININE SERUM 0.88 MG/DL (0.60-1.30)
[2023-01-19 05:14] LABS: MAGNESIUM 1.6 MG/DL (1.6-2.4)
[2023-01-19 05:25] LABS: PLATELET COUNT 36 10^3/uL (130-400)
[2023-01-19] MEDS: POTASSIUM BICARB 20 MEQ (EFFER-K) TABLET PO SCH (05:49)
[2023-01-19] MEDS: POTASSIUM CL 10MEQ/50ML IVPB 50 ML IV SCH (05:49)
[2023-01-19] MEDS: KCL 20 MEQ TAB (K-DUR) PO SCH (05:49)
[2023-01-19] MEDS: MAGNESIUM 1 GM/100 ML IVPB 100 ML IV SCH ×5 (05:50→14:19)
[2023-01-19] MEDS ORDERED: NS IV 500 ML 500 ML ONE (07:52)
[2023-01-19] MEDS ORDERED: predniSONE 5 MG TAB PO ONE (08:45)
[2023-01-19] MEDS ORDERED: MAGNESIUM 1 GM/100 ML IVPB 100 ML IV SCH (09:00)
[2023-01-19] MEDS: SERTRALINE 100 MG (ZOLOFT) TAB PO SCH (09:52)
[2023-01-19] MEDS: DOCUSATE SODIUM 100 MG (COLACE) CAP PO SCH ×2 (09:52→20:07)
[2023-01-19] MEDS: OXYBUTYNIN (DITROPAN) 5 MG TAB PO SCH ×2 (09:52→20:07)
[2023-01-19] MEDS: SENNOSIDES 8.6 MG (SENOKOT) TAB PO SCH ×2 (09:53→20:07)
[2023-01-19] MEDS: PANTOPRAZOLE 40 MG (PROTONIX) VIAL IV SCH ×2 (10:16→20:07)
--- NOTE | 2023-01-19 13:01 | Progress Note ---
Subjective Date Seen by a Provider: Jan 19, 2023 Time Seen by a Provider: 11:00 Subjective/Events-last exam doing much better today. less fatigue and ambulating well. states mild darker stools in past. has received 2 units PRBC with appropriate rise in Hb. Focused Exam Lactate Level 01/18/23 13:57: Lactic Acid Level 1.15 Objective Exam Vital Signs Date Time Temp Pulse Resp B/P (MAP) Pulse Ox O2 Delivery O2 Flow Rate FiO2 01/19/23 12:40 73 01/19/23 11:37 36.6 75 16 143/63 (89) 93 Room Air 01/19/23 10:09 36.3 80 18 132/65 94 Room Air 01/19/23 08:46 36.1 86 18 143/65 93 Room Air 01/19/23 08:20 36.5 86 18 142/67 94 Room Air 01/19/23 08:02 36.5 81 18 130/60 (83) 95 Room Air 01/19/23 08:00 Room Air 01/19/23 07:56 36.5 81 18 130/60 95 Room Air 01/19/23 07:00 80 01/19/23 03:38 36.9 85 16 148/68 (94) 94 Room Air 01/19/23 02:25 36.6 86 16 141/90 93 Room Air 01/19/23 01:00 90 01/19/23 00:15 37.0 86 18 136/63 95 Room Air 01/18/23 23:47 37.2 88 18 138/61 Room Air 01/18/23 23:46 37.2 91 18 138/61 (86) 94 Room Air 01/18/23 21:30 36.5 90 20 145/66 95 Room Air 01/18/23 20:44 103 01/18/23 20:00 Room Air 01/18/23 19:32 37.3 101 18 135/63 (87) 95 Room Air 01/18/23 19:12 37.0 102 16 127/74 94 Room Air 01/18/23 18:57 37.4 96 17 135/56 95 Room Air 01/18/23 18:15 96 17 135/56 95 Room Air 01/18/23 14:12 37.4 114 18 191/79 (116) 97 01/18/23 13:24 37.4 114 18 191/79 (116) 97 I & O 01/19/23 07:00 Intake Total 1770 ml Output Total 650 ml Balance 1120 ml Capillary Refill : Less Than 3 Seconds General Appearance: No Apparent Distress HEENT: PERRL/EOMI Neck: Full Range of Motion Respiratory: Chest Non Tender, Lungs Clear, Normal Breath Sounds Cardiovascular: Regular Rate, Rhythm Gastrointestinal: normal bowel sounds, non tender, soft Extremity: Normal Capillary Refill Neurologic/Psychiatric: Alert, Oriented x3 Skin: Normal Color Lymphatic: No Adenopathy Results Lab Laboratory Tests 01/18/23 13:57: White Blood Count 8.3, Red Blood Count 2.69L, Hemoglobin 6.5*L, Hematocrit 21L, Mean Corpuscular Volume 79L, Mean Corpuscular Hemoglobin 24L, Mean Corpuscular Hemoglobin Concent 31L, Red Cell Distribution Width 19.4H, Platelet Count 50L, Mean Platelet Volume 10.1, Immature Granulocyte % (Auto) 4, Neutrophils (%) (Auto) 48, Lymphocytes (%) (Auto) 10L, Monocytes (%) (Auto) 38H, Eosinophils (%) (Auto) 0, Basophils (%) (Auto) 0, Neutrophils # (Auto) 4.0, Lymphocytes # (Auto) 0.8L, Monocytes # (Auto) 3.2H, Eosinophils # (Auto) 0.0, Basophils # (Auto) 0.0, Immature Granulocyte # (Auto) 0.4H, Neutrophils % (Manual) 58, Lymphocytes % (Manual) 6, Monocytes % (Manual) 33, Atypical Lymphocytes 3, Percent Immature Platelet Fraction 2.0, Hypochromasia SLIGHT, Anisocytosis MODERATE, Microcytosis MODERATE, Spherocytes SLIGHT, Acanthocytes SLIGHT, Schistocytes SLIGHT, Prothrombin Time 17.0H, INR Comment 1.3, Activated Partial Thromboplast Time 42H , Sodium Level 132L, Potassium Level 3.8, Chloride Level 99, Carbon Dioxide Level 19L, Anion Gap 14, Blood Urea Nitrogen 16, Creatinine 0.89, Estimat Glomerular Filtration Rate 66, BUN/Creatinine Ratio 18, Glucose Level 103, Lactic Acid Level 1.15, Calcium Level 9.0, Corrected Calcium 9.6, Total Bilirubin 0.6, Aspartate Amino Transf (AST/SGOT) 20, Alanine Aminotransferase (ALT/SGPT) 13, Alkaline Phosphatase 74, Troponin I < 0.028, Total Protein 7.4, Albumin 3.3 01/19/23 04:18: White Blood Count 8.5, Red Blood Count 3.54L, Hemoglobin 8.9#L, Hematocrit 28L, Mean Corpuscular Volume 80, Mean Corpuscular Hemoglobin 25, Mean Corpuscular Hemoglobin Concent 32, Red Cell Distribution Width 18.1H, Platelet Count 36*L, Mean Platelet Volume 9.7, Immature Granulocyte % (Auto) 5, Neutrophils (%) (Auto) 40L, Lymphocytes (%) (Auto) 12, Monocytes (%) (Auto) 43H, Eosinophils (%) (Auto) 0, Basophils (%) (Auto) 0, Neutrophils # (Auto) 3.4, Lymphocytes # (Auto) 1.1, Monocytes # (Auto) 3.7H, Eosinophils # (Auto) 0.0, Basophils # (Auto) 0.0, Immature Granulocyte # (Auto) 0.4H, Sodium Level 134L, Potassium Level 4.0, Chloride Level 103, Carbon Dioxide Level 18L, Anion Gap 13, Blood Urea Nitrogen 14, Creatinine 0.88, Estimat Glomerular Filtration Rate 67, BUN/Creatinine Ratio 16, Glucose Level 70, Calcium Level 8.7, Magnesium Level 1.6 Assessment/Plan Assessment/Plan Assess & Plan/Chief Complaint anemia with hx myelodysplastic syndrome. anemia multifactorial. normally receives platelets and PRBC on a regular basis. doing well now however will recommend EGD and colonscopy if not on this admission then as OP due to family hx colon cancer and darker stools. continue PPI at home. DELFINA FAULKNER MD Jan 19, 2023 13:01
--- NOTE | 2023-01-19 16:57 | History & Physical-Hospitalist ---
History of Present Illness HPI/Chief Complaint Ellie Flynn is a 77 year old female with PMH MDS, transfusion dependent anemia and thrombocytopenia, who presented with weakness. She had a fall at home. She has been having dark stools. She has not seen any bright red blood. She denies shortness of breath. She denies chest pain. She denies fevers. She follows with Dr. Nguyen. Source: patient, family Exam Limitations: no limitations Date Seen 01/19/23 Time Seen by a Provider: 11:15 Attending Physician Zaid Mario DO PCP Admitting Physician: Karo Paulino MD Attending Physician: Karo Paulino MD Referring Physician Date of Admission Jan 18, 2023 at 18:15 Home Medications & Allergies Home Medications Reviewed patient Home Medication Reconciliation performed by pharmacy medication reconciliations marine diesel technician and/or nursing. Patients Allergies have been reviewed. Allergies Allergies Coded Allergies No Known Drug Allergies (Spotkbkmtr87/25/22) Past Hxoaftl-Ojzsvp-Cppkru Hx Patient Social History Tobacco Use?: No Use of E-Cig and/or Vaping dev: No Substance use?: No Alcohol Use?: No Pt feels they are or have been: No Immunizations Up To Date Date of Influenza Vaccine: Sep 08, 2020 First/Initial COVID19 Vaccinat: 2020 Second COVID19 Vaccination Mesfin: 2020 Tetanus Booster (TDap): Unknown Seasonal Allergies Seasonal Allergies: No Current Status status: No status: No Advance Directives: No Primary Language: Kyrgyz Preferred Spoken Language: Kyrgyz Is interpretation needed?: No Past Medical History Surgeries: Adenoidectomy, Bladder Surgery, Eye Surgery, Gallbladder, Hysterectomy, Tonsillectomy COPD Currently Using CPAP: No Currently Using BIPAP: No Coronary Artery Disease, High Cholesterol, 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 UTI-Chronic Diverticulosis Arthritis Cataract Leukemia, Skin Did You Recieve Any Treatments: Yes What Type of Treatment Did You: Surgical Intervention Depression Eczema Blood Disorders: Yes (LEUKEMIA) Adverse Reaction/Blood Tranf: Yes (HAS HAD BLOOD WITH NO REACTIONS) Hypertension Pancytopenia Cystocele/Rectocele Family Medical History Heart Disease, Cancer, Stroke Noncontributory Review of Systems Constitutional: weakness Respiratory: no symptoms reported Cardiovascular: no symptoms reported Gastrointestinal: melena Physical Exam Physical Exam Vital Signs Vital Signs - First Documented 01/18/23 01/18/23 13:24 18:15 Temp 37.4 Pulse 114 Resp 18 B/P (MAP) 191/79 (116) Pulse Ox 97 O2 Delivery Room Air Capillary Refill : Less Than 3 Seconds Height, Weight, BMI Height: 5'7.00" Weight: 170lbs. oz. 77.151132kg; 21.63 BMI Method:Stated General Appearance: No Apparent Distress, WD/WN HEENT: PERRL/EOMI, Pharynx Normal Neck: Normal Inspection, Supple Respiratory: Lungs Clear, No Respiratory Distress Cardiovascular: Regular Rate, Rhythm, No Murmur Gastrointestinal: Normal Bowel Sounds, Non Tender, Soft Extremity: Normal Inspection, No Pedal Edema Neurologic/Psychiatric: Alert, Normal Mood/Affect Skin: Normal Color, Warm/Dry Results Results/Procedures Labs Laboratory Tests 01/18/23 13:57 01/19/23 04:18 Patient resulted labs reviewed. Imaging: Reviewed Imaging Report Assessment/Plan Admission Diagnosis Acute blood loss anemia Admission Status: Inpatient Order (span 2 midnights) Reason for Inpatient Admission: Anemia Assessment and Plan Acute blood loss anemia Symptomatic anemia Melena Myelodysplastic syndrome Thrombocytopenia Debility Surgery following, planning for endoscopic evaluation either this stay or outpatient Hgb 8.9 s/p 1 unit PRBC s/p 1 unit platelets Goal Hgb >8 Goal Plt >40 IV PPI Decrease IV fluids Continue home meds as able PT/OT Diagnosis/Problems Diagnosis/Problems (1) Acute blood loss anemia Status: Acute (2) Symptomatic anemia Status: Acute (3) GI bleed Status: Acute (4) Myelodysplastic syndrome Status: Acute (5) Thrombocytopenia Status: Acute (6) Generalized weakness Status: Acute KARO PAULINO MD Jan 19, 2023 16:57
[2023-01-20] VITALS (7 sets, daily range): BP systolic 140–180; BP diastolic 68–73
[2023-01-20 04:13] LABS: LYMPHOCYTES # (AUTO) 0.7 10^3/uL (1.0-4.0); MONOCYTES % (AUTO) 40 % (0-12)
[2023-01-20 04:15] LABS: BASOPHILS % (AUTO) 0 % (0-10); EOSINOPHILS % (AUTO) 0 % (0-10); HEMATOCRIT 27 % (35-52); HEMOGLOBIN 8.8 g/dL (11.5-16.0); LYMPHOCYTES % (AUTO) 11 % (12-44); MEAN CORPUSCULAR HEMOGLOBIN 25 pg (25-34); MEAN CORPUSCULAR HGB CONC 32 g/dL (32-36); MEAN CORPUSCULAR VOLUME 79 fL (80-99); MONOCYTES # (AUTO) 2.5 10^3/uL (0.0-1.0); NEUTROPHILS # (AUTO) 2.7 10^3/uL (1.8-7.8); NEUTROPHILS % (AUTO) 44 % (42-75); PLATELET COUNT 41 10^3/uL (130-400); WHITE BLOOD COUNT 6.2 10^3/uL (4.3-11.0)
[2023-01-20 04:25] LABS: POTASSIUM 3.8 MMOL/L (3.6-5.0)
[2023-01-20 04:26] LABS: CALCIUM 8.9 MG/DL (8.5-10.1)
[2023-01-20 04:30] LABS: CREATININE SERUM 0.77 MG/DL (0.60-1.30)
[2023-01-20] MEDS: POTASSIUM CL 10MEQ/50ML IVPB 50 ML IV SCH (04:44)
[2023-01-20] MEDS: POTASSIUM BICARB 20 MEQ (EFFER-K) TABLET PO SCH (04:45)
[2023-01-20] MEDS: MAGNESIUM 1 GM/100 ML IVPB 100 ML IV SCH (04:45)
[2023-01-20] MEDS: KCL 20 MEQ TAB (K-DUR) PO SCH (04:45)
[2023-01-20] MEDS: LACTATED RINGERS 1,000 ML IV SCH ×2 (05:33→19:26)
[2023-01-20] MEDS: predniSONE 5 MG TAB PO SCH (05:33)
[2023-01-20] MEDS ORDERED: KCL 20 MEQ TAB (K-DUR) PO ONE (08:00)
[2023-01-20] MEDS: OXYBUTYNIN (DITROPAN) 5 MG TAB PO SCH ×2 (08:54→21:23)
[2023-01-20] MEDS: PANTOPRAZOLE 40 MG (PROTONIX) VIAL IV SCH ×2 (08:55→21:23)
[2023-01-20] MEDS: SERTRALINE 100 MG (ZOLOFT) TAB PO SCH (08:58)
--- NOTE | 2023-01-20 09:37 | Progress Note ---
Subjective Date Seen by a Provider: Jan 20, 2023 Time Seen by a Provider: 09:15 Subjective/Events-last exam Patient seen with Dr. Ortiz. Patient reports doing better today. She reports she has been tolerating diet with no nausea or vomiting. She does report some abdominal soreness but no significant pain. No reflux. She still reports some dark stools but no red blood. Focused Exam Lactate Level 01/18/23 13:57: Lactic Acid Level 1.15 Objective Exam Vital Signs Date Time Temp Pulse Resp B/P (MAP) Pulse Ox O2 Delivery O2 Flow Rate FiO2 01/20/23 07:33 36.4 75 22 161/70 (100) 96 Room Air 01/20/23 07:00 68 01/20/23 03:14 36.2 64 16 158/72 (100) 97 Room Air 01/20/23 01:00 63 01/19/23 23:26 36.2 68 16 158/68 (98) 96 Room Air 01/19/23 20:00 Room Air 01/19/23 19:29 36.5 64 20 138/68 (91) 94 Room Air 01/19/23 19:00 65 01/19/23 16:03 37.0 67 18 120/56 (77) 96 Room Air 01/19/23 12:40 73 01/19/23 11:37 36.6 75 16 143/63 (89) 93 Room Air 01/19/23 10:09 36.3 80 18 132/65 94 Room Air I & O 01/20/23 07:00 Intake Total 1230 ml Output Total 1400 ml Balance -170 ml Capillary Refill : Less Than 3 Seconds General Appearance: No Apparent Distress Neck: Normal Inspection, Supple Respiratory: No Accessory Muscle Use, No Respiratory Distress Gastrointestinal: normal bowel sounds, non tender, soft Extremity: Normal Inspection, Normal Range of Motion Neurologic/Psychiatric: Alert, Oriented x3 Skin: Normal Color, Warm/Dry Results Lab Laboratory Tests 01/20/23 04:05: White Blood Count 6.2, Red Blood Count 3.46L, Hemoglobin 8.8L, Hematocrit 27L, Mean Corpuscular Volume 79L, Mean Corpuscular Hemoglobin 25, Mean Corpuscular Hemoglobin Concent 32, Red Cell Distribution Width 18.2H, Platelet Count 41L, Mean Platelet Volume 11.0, Immature Granulocyte % (Auto) 4, Neutrophils (%) (Auto) 44, Lymphocytes (%) (Auto) 11L, Monocytes (%) (Auto) 40H, Eosinophils (%) (Auto) 0, Basophils (%) (Auto) 0, Neutrophils # (Auto) 2.7, Lymphocytes # (Auto) 0.7L, Monocytes # (Auto) 2.5H, Eosinophils # (Auto) 0.0, Basophils # (Auto) 0.0, Immature Granulocyte # (Auto) 0.3H, Percent Immature Platelet Fraction 1.7, Sodium Level 137, Potassium Level 3.8, Chloride Level 105, Carbon Dioxide Level 17L, Anion Gap 15H, Blood Urea Nitrogen 14, Creatinine 0.77, Estimat Glomerular Filtration Rate 78, BUN/Creatinine Ratio 18, Glucose Level 72, Calcium Level 8.9, Magnesium Level 2.0 Microbiology 01/18/23 Blood Culture - Preliminary, Resulted No growth Assessment/Plan Assessment/Plan Assess & Plan/Chief Complaint A 77 year old female with anemia with hx myelodysplastic syndrome. anemia multifactorial. normally receives platelets and PRBC on a regular basis. doing well now however will recommend EGD and colonscopy if not on this admission then as OP due to family hx colon cancer and darker stools. continue PPI at home. Hgb 8.8 and PLT 41 Will proceed with EGD and colonoscopy on this admission TORSTEN HALL APRN Jan 20, 2023 09:37
[2023-01-20] MEDS: SENNOSIDES 8.6 MG (SENOKOT) TAB PO SCH ×2 (10:23→21:24)
[2023-01-20] MEDS: DOCUSATE SODIUM 100 MG (COLACE) CAP PO SCH ×2 (10:23→21:24)
[2023-01-20] MEDS: MILK OF MAGNESIA 400 MG/5 ML 30 ML UDC PO SCH ×6 (11:45→22:36)
--- NOTE | 2023-01-20 15:55 | Progress Note - Hospitalist ---
Subjective HPI/CC On Admission Date Seen by Provider: Jan 20, 2023 Time Seen by Provider: 10:05 Ellie Flynn is a 77 year old female with PMH MDS, transfusion dependent anemia and thrombocytopenia, who presented with weakness. She had a fall at home. She has been having dark stools. She has not seen any bright red blood. She denies shortness of breath. She denies chest pain. She denies fevers. She follows with Dr. Nguyen. Subjective/Events-last exam She had another dark stool this morning. She denies lightheadedness and dizziness. She denies pain. She is not short of breath. Focused Exam Lactate Level 01/18/23 13:57: Lactic Acid Level 1.15 Objective Exam Vital Signs Vital Signs Date Time Temp Pulse Resp B/P (MAP) Pulse Ox O2 Delivery O2 Flow Rate FiO2 01/20/23 12:55 70 01/20/23 12:10 36.5 20 140/72 (94) 92 Room Air Capillary Refill : Less Than 3 Seconds General Appearance: No Apparent Distress, WD/WN Respiratory: Lungs Clear, No Respiratory Distress Cardiovascular: Regular Rate, Rhythm, No Murmur Gastrointestinal: Normal Bowel Sounds, Soft Extremity: Normal Inspection, No Pedal Edema Neurologic/Psychiatric: Alert, Normal Mood/Affect Skin: Normal Color, Warm/Dry Results/Procedures Lab Laboratory Tests 01/20/23 04:05 Patient resulted labs reviewed. Imaging: Reviewed Imaging Report Assessment/Plan Assessment and Plan Assess & Plan/Chief Complaint Acute blood loss anemia Symptomatic anemia Melena Myelodysplastic syndrome Thrombocytopenia Debility Surgery following, planning for endoscopy tomorrow Hgb 8.8 s/p 1 unit PRBC s/p 1 unit platelets Goal Hgb >8 Goal Plt >40 IV PPI IV fluids Continue home meds as able PT/OT Diagnosis/Problems Diagnosis/Problems (1) Acute blood loss anemia Status: Acute (2) Symptomatic anemia Status: Acute (3) GI bleed Status: Acute (4) Myelodysplastic syndrome Status: Acute (5) Thrombocytopenia Status: Acute (6) Generalized weakness Status: Acute KARO PAULINO MD Jan 20, 2023 15:55
[2023-01-20] MEDS: hydrALAZINE (APESOLINE) 20 MG/ML VIAL IV PRN (17:42)
[2023-01-20] MEDS: MELATONIN 3 MG TABLET PO PRN (21:23)
--- NOTE | 2023-01-20 21:48 | Progress Note-Pre Operative ---
Pre-Operative Progress Note Date of Available H&P: Jan 20, 2023 Date H&P Reviewed: Jan 20, 2023 Time H&P Reviewed: 21:30 History & Physical: No changes noted Pre-Operative Diagnosis: anemia DELFINA FAULKNER MD Jan 20, 2023 21:48
[2023-01-21] VITALS (9 sets, daily range): BP systolic 131–178; BP diastolic 59–79
[2023-01-21] MEDS: MILK OF MAGNESIA 400 MG/5 ML 30 ML UDC PO SCH ×5 (02:24→07:51)
[2023-01-21 04:12] LABS: BASOPHILS % (AUTO) 0 % (0-10); EOSINOPHILS % (AUTO) 0 % (0-10); HEMOGLOBIN 9.1 g/dL (11.5-16.0)
[2023-01-21 04:14] LABS: HEMATOCRIT 28 % (35-52); LYMPHOCYTES # (AUTO) 0.9 10^3/uL (1.0-4.0); LYMPHOCYTES % (AUTO) 22 % (12-44); MEAN CORPUSCULAR HEMOGLOBIN 26 pg (25-34); MEAN CORPUSCULAR HGB CONC 32 g/dL (32-36); MEAN CORPUSCULAR VOLUME 79 fL (80-99); MEAN PLATELET VOLUME 8.7 fL (9.0-12.2); MONOCYTES # (AUTO) 1.6 10^3/uL (0.0-1.0); MONOCYTES % (AUTO) 40 % (0-12); NEUTROPHILS # (AUTO) 1.3 10^3/uL (1.8-7.8); NEUTROPHILS % (AUTO) 32 % (42-75)
[2023-01-21 04:22] LABS: POTASSIUM 3.6 MMOL/L (3.6-5.0)
[2023-01-21 04:24] LABS: CALCIUM 8.9 MG/DL (8.5-10.1)
[2023-01-21 04:28] LABS: CREATININE SERUM 0.76 MG/DL (0.60-1.30)
[2023-01-21 04:30] LABS: MAGNESIUM 1.7 MG/DL (1.6-2.4)
[2023-01-21] MEDS: hydrALAZINE (APESOLINE) 20 MG/ML VIAL IV PRN ×2 (04:39→20:38)
[2023-01-21] MEDS: PHENAZOPYRIDINE 100 MG (PYRIDIUM) TABLET PO SCH ×4 (05:06→19:35)
[2023-01-21 05:19] LABS: PLATELET COUNT 32 10^3/uL (130-400)
[2023-01-21] MEDS: MAGNESIUM 1 GM/100 ML IVPB 100 ML IV SCH ×4 (05:23→07:50)
[2023-01-21] MEDS: KCL 20 MEQ TAB (K-DUR) PO SCH (05:23)
[2023-01-21] MEDS: POTASSIUM BICARB 20 MEQ (EFFER-K) TABLET PO SCH (05:23)
[2023-01-21] MEDS: POTASSIUM CL 10MEQ/50ML IVPB 50 ML IV SCH (05:23)
[2023-01-21] MEDS ORDERED: KCL 20 MEQ TAB (K-DUR) PO ONE (05:30)
[2023-01-21 05:46] LABS: LYMPHOCYTES % (MANUAL) 20 %; NEUTROPHILS % (MANUAL) 37 %
[2023-01-21 05:47] LABS: MICROCYTOSIS SLIGHT; PLATELET CLUMPS 0 CLUMPS OBSERVED
[2023-01-21 05:48] LABS: BURR CELLS SLIGHT; MONOCYTES % (MANUAL) 41 %
[2023-01-21 05:54] LABS: BILIRUBIN,URINE NEGATIVE (NEGATIVE); CLARITY,URINE TURBID; COLOR,URINE YELLOW; GLUCOSE, URINE (UA) NEGATIVE (NEGATIVE); KETONES,URINE NEGATIVE (NEGATIVE); LEUKOCYTE ESTERASE ,URINE 3+ (NEGATIVE); NITRITE,URINE POSITIVE (NEGATIVE); PROTEIN,URINE 1+ (NEGATIVE)
[2023-01-21] MEDS: predniSONE 5 MG TAB PO SCH (06:30)
[2023-01-21 06:34] LABS: BACTERIA,URINE LARGE /HPF; WBC,URINE TNTC /HPF
[2023-01-21] MEDS: LACTATED RINGERS 1,000 ML IV SCH ×2 (07:51→11:29)
[2023-01-21] MEDS: DOCUSATE SODIUM 100 MG (COLACE) CAP PO SCH ×2 (07:52→19:27)
[2023-01-21] MEDS: SENNOSIDES 8.6 MG (SENOKOT) TAB PO SCH ×2 (07:52→19:28)
[2023-01-21] MEDS ORDERED: IBUP-2473 PO (08:53)
[2023-01-21] MEDS ORDERED: SERT-414 PO (08:55)
[2023-01-21] MEDS ORDERED: OXYB-52 PO (08:55)
[2023-01-21] MEDS ORDERED: MULT-974 PO (08:55)
[2023-01-21] MEDS ORDERED: LISI20TA26 PO (08:55)
[2023-01-21] MEDS ORDERED: POTA-160 PO (08:55)
[2023-01-21] MEDS: SERTRALINE 100 MG (ZOLOFT) TAB PO SCH (09:28)
[2023-01-21] MEDS: OXYBUTYNIN (DITROPAN) 5 MG TAB PO SCH ×2 (09:28→19:36)
[2023-01-21] MEDS: PANTOPRAZOLE 40 MG (PROTONIX) VIAL IV SCH (09:28)
--- NOTE | 2023-01-21 11:11 | Physical Therapy Progress Note ---
Therapy Progress Note Patient declined PT on this date. Family present and also declined PT. Will attempt tomorrow per their request. 1 ref ELIS PIERRE PT Jan 21, 2023 11:11
[2023-01-21] MEDS: cefTRIAXone 1 GM PRE-MIX 50 ML IV SCH (11:29)
--- NOTE | 2023-01-21 13:37 | Progress Note - Hospitalist ---
Subjective HPI/CC On Admission Date Seen by Provider: Jan 21, 2023 Ellie Flynn is a 77 year old female with PMH MDS, transfusion dependent anemia and thrombocytopenia, who presented with weakness. She had a fall at home. She has been having dark stools. She has not seen any bright red blood. She denies shortness of breath. She denies chest pain. She denies fevers. She follows with Dr. Nguyen. Subjective/Events-last exam pt reports not feeling well. Seems little confused. Daughter at bedside. We discussed UA results. pt says she's never had a UTI before but daughter states she has had many in the past. Focused Exam Lactate Level 01/18/23 13:57: Lactic Acid Level 1.15 Objective Exam Vital Signs Vital Signs Date Time Temp Pulse Resp B/P (MAP) Pulse Ox O2 Delivery O2 Flow Rate FiO2 01/21/23 12:45 78 01/21/23 12:06 36.3 18 159/72 (101) 93 Room Air Capillary Refill : Less Than 3 Seconds General Appearance: No Apparent Distress Respiratory: Lungs Clear, No Respiratory Distress Cardiovascular: Regular Rate, Rhythm, No Murmur Gastrointestinal: Normal Bowel Sounds, Soft Neurologic/Psychiatric: Alert, Other (oriented to person and place) Results/Procedures Lab Laboratory Tests 01/21/23 04:05 Patient resulted labs reviewed. Imaging: Reviewed Imaging Report Assessment/Plan Assessment and Plan Assess & Plan/Chief Complaint Acute blood loss anemia Symptomatic anemia Melena Myelodysplastic syndrome Thrombocytopenia Debility Surgery following, planning for endoscopy this afternoon Hgb up to 9.1 s/p 1 unit PRBC s/p 1 unit platelets Goal Hgb >8 Plts [address] Ortiz and ok with no transfusion pre procedure IV PPI IV fluids Continue home meds as able PT/OT UTI Reviewed previous cultures Add rocephin Await sensitivities HENOK MORRISON MD Jan 21, 2023 13:37
[2023-01-21] MEDS ORDERED: PROPOFOL INJECTION 50 ML IV ONE (15:52)
[2023-01-21] MEDS ORDERED: LIDOCAINE JELLY 2% 6 ML SYRINGE ONE (15:54)
[2023-01-21] MEDS ORDERED: LACTATED RINGERS 1,000 ML IV STA (16:04)
[2023-01-21] MEDS ORDERED: HURRICAINE EXT TUBE (BENZOCAINE) XX PRN (16:15)
[2023-01-21] MEDS ORDERED: LIDOCAINE JELLY 2% 6 ML SYRINGE MM PRN (16:15)
--- NOTE | 2023-01-21 17:37 | Progress Note-Post Operative ---
Post-Operative Progess Note Surgeon (s)/Tentmaker (s) Surgeon DELFINA FAULKNER MD Tentmaker: none Pre-Operative Diagnosis anemia Post-Operative Diagnosis reflux esophagitis, possible esophageal candidiasis, small HH(2cm), moderate-severe gastritis. mild chronic stage 2 ext and int hemorrhoids, mild sigmoid diverticulosis, small transvers HP polyp, colitis asc colon and cecum. Procedure & Operative Findings Date of Procedure 01/21/23 Procedure Performed/Findings EGD with bx. colonoscopy with bx. Anesthesia Type mac Estimated Blood Loss Estimated blood loss (mL): minimal Specimens/Packing Specimens Removed ge jxn, antrum, transverse colon polyp, cecum DELFINA FAULKNER MD Jan 21, 2023 17:37
--- NOTE | 2023-01-21 17:44 | Anesthesia-General Post-Op ---
MAC Patient Condition Mental Status/LOC: Same as Preop Cardiovascular: Satisfactory Nausea/Vomiting: Absent Respiratory: Satisfactory Pain: Controlled Complications: Absent Post Op Complications Complications None Follow Up Care/Instructions Patient Instructions None needed. Anesthesiology Discharge Order Discharge Order Patient is doing well, no complaints, stable vital signs, no apparent adverse anesthesia problems. No complications reported per nursing. STEPHEN OWENS CRNA Jan 21, 2023 17:44
[2023-01-21] MEDS ORDERED: LACTATED RINGERS 1,000 ML IV ONE (18:29)
[2023-01-21] MEDS ORDERED: PANTOPRAZOLE 40 MG (PROTONIX) TAB PO ONE (19:35)
[2023-01-21] MEDS: PANTOPRAZOLE 40 MG (PROTONIX) TAB PO SCH (19:35)
[2023-01-21] MEDS: MELATONIN 3 MG TABLET PO PRN (19:35)
[2023-01-22] VITALS (7 sets, daily range): BP systolic 140–156; BP diastolic 65–78
--- NOTE | 2023-01-22 01:07 | OPERATIVE REPORT ---
DATE OF SERVICE: 01/21/2023 ATTENDING PRIMARY CARE PHYSICIAN: Zaid Mario DO ADMITTING PHYSICIAN: Mary Ryan MD PREOPERATIVE DIAGNOSIS: Anemia with history of myelodysplastic syndrome. POSTOPERATIVE DIAGNOSES: Reflux esophagitis Bent grade B, small hiatal hernia 2.5 cm, moderate to severe gastritis, normal duodenum. Chronic stage II external and internal hemorrhoids, mild sigmoid diverticulosis, mild to moderate colitis of the cecum and ascending colon, small transverse colon, hyperplastic polyp. PROCEDURE: EGD with biopsy, colonoscopy with polypectomy with hot biopsy forceps. DISPOSITION: The patient tolerated the procedure well. INDICATIONS: The patient is a 77-year-old female known to us. She has a history of myelodysplastic syndrome and has had a longstanding history of episodes of anemia and thrombocytopenia and states that she normally has to get a blood transfusion approximately every 2 weeks as well as platelets. She reports that she felt extremely fatigued and was also having issues with diarrhea and she also noticed that her stools were slightly darker in coloration as well. She did not report any nausea, no vomiting. Since being admitted, she was given 2 units of packed red blood cells and her hemoglobin did go up appropriately. She reports that she has had some mild issues with reflux in the past. She also has a first-degree family history of colon cancer with her father having the disease and her last colonoscopy was greater than 5 years ago. DESCRIPTION OF PROCEDURE: The patient was brought to the endoscopy suite and laid in the left lateral decubitus position. After adequate IV pain and sedative medications and monitored anesthesia care, the mouthpiece was applied. The endoscope was placed in the mouth, visualizing the pharynx and hypopharyngeal region. Vocal cords, epiglottis and vallecula identified and appeared to be normal. The endoscope was then gently intubated into the esophageal opening and esophagus insufflated. The endoscope was then advanced through the first, second and third portions of esophagus. At the level of the GE junction, reflux esophagitis Bent grade B identified. We did also appear to be a yellow plaque, which may have also indicate a mild esophageal candidiasis. A biopsy was taken with forceps at the GE junction as well as brushings for fungal culture. Good hemostasis was observed. The endoscope was then advanced into the stomach and endoscope retroflexed visualizing a small hiatal hernia approximately 2.5 cm in size. There was a moderate to severe gastritis, which was throughout the stomach. There were no formal ulcerations polyps or any neoplasms as well as no active bleeding. A biopsy was taken of the antrum to rule out H. pylori with visualization of good hemostasis. The endoscope was then advanced through the pylorus into the first and second portions of the duodenum, which appeared normal with no ulcerations or bleeding sources. The endoscope was then slowly withdrawn while taking a second look and suctioning of residual air with no additional findings. A digital rectal examination was performed which revealed chronic stage II external and internal hemorrhoids, not actively edematous nor inflamed and no bleeding. Normal sphincter tone was felt and there were no palpable masses. The endoscope was then intubated into the anus, rectum gently insufflated. The endoscope was then advanced through the valves of Nur of the rectum with no polyps or any neoplasms identified. Through the sigmoid colon, mild diverticulosis was identified. The endoscope was then advanced into the descending and transverse colon. At the level of the transverse colon, a small 2 mm hyperplastic polyp was identified and this was biopsied and destroyed with forceps and electrocautery with visualization of good hemostasis. The endoscope was then advanced through the ascending colon to the cecum where there were some mucosal inflammatory changes, which may have indicated some form of colitis, whether it be an ischemic colitis from low flow state and dehydration versus a low-grade inflammatory bowel disease. A biopsy was taken of the cecum with forceps with visualization of good hemostasis. The transverse colon polyp was biopsied and destroyed with forceps and electrocautery. The endoscope was then slowly withdrawn while taking a second look and suctioning of residual air with no additional findings. The patient tolerated the procedure well. We will recommend the necessary lifestyle and dietary accommodation including small and more frequent meals, avoidance of eating at night as well as head elevation while lying supine. She also needs to avoid caffeinated beverages, spicy, greasy and acidic foods. We will also start her on Protonix 40 mg daily. We will await the biopsy results of the colon; however, we will empirically treat her for a chronic active colitis with 5-aminosalicylic acid 800 mg t.i.d. for 6 weeks in hopes of decreasing the inflammatory changes, which is the most likely cause of her blood loss anemia. Job ID: [id number] DocumentID: [id number] Dictated Date: 01/21/2023 17:31:16 Supervisor Packing Room Date: 01/22/2023 01:04:00 Dictated By: DELFINA FAULKNER MD
[2023-01-22] MEDS: LACTATED RINGERS 1,000 ML IV SCH (04:17)
[2023-01-22 04:48] LABS: BASOPHILS % (AUTO) 0 % (0-10); MEAN CORPUSCULAR HEMOGLOBIN 25 pg (25-34); MEAN CORPUSCULAR HGB CONC 31 g/dL (32-36); MEAN CORPUSCULAR VOLUME 80 fL (80-99)
[2023-01-22 04:50] LABS: EOSINOPHILS % (AUTO) 0 % (0-10); HEMATOCRIT 28 % (35-52); HEMOGLOBIN 8.8 g/dL (11.5-16.0); LYMPHOCYTES # (AUTO) 0.6 10^3/uL (1.0-4.0); LYMPHOCYTES % (AUTO) 14 % (12-44); MEAN PLATELET VOLUME 9.8 fL (9.0-12.2); MONOCYTES # (AUTO) 1.9 10^3/uL (0.0-1.0); MONOCYTES % (AUTO) 43 % (0-12); NEUTROPHILS # (AUTO) 1.6 10^3/uL (1.8-7.8); NEUTROPHILS % (AUTO) 38 % (42-75); WHITE BLOOD COUNT 4.3 10^3/uL (4.3-11.0)
[2023-01-22 05:02] LABS: POTASSIUM 3.6 MMOL/L (3.6-5.0)
[2023-01-22 05:03] LABS: CALCIUM 8.8 MG/DL (8.5-10.1)
[2023-01-22 05:08] LABS: CREATININE SERUM 0.73 MG/DL (0.60-1.30)
[2023-01-22 05:10] LABS: MAGNESIUM 1.9 MG/DL (1.6-2.4)
[2023-01-22] MEDS: POTASSIUM CL 10MEQ/50ML IVPB 50 ML IV SCH (05:17)
[2023-01-22] MEDS: POTASSIUM BICARB 20 MEQ (EFFER-K) TABLET PO SCH (05:17)
[2023-01-22] MEDS: MAGNESIUM 1 GM/100 ML IVPB 100 ML IV SCH ×3 (05:18→06:25)
[2023-01-22] MEDS: KCL 20 MEQ TAB (K-DUR) PO SCH (05:19)
[2023-01-22 05:34] LABS: PLATELET COUNT 21 10^3/uL (130-400)
[2023-01-22 05:36] LABS: SMEAR SCAN COMMENT YES
[2023-01-22] MEDS: predniSONE 5 MG TAB PO SCH (05:42)
[2023-01-22] MEDS: DOCUSATE SODIUM 100 MG (COLACE) CAP PO SCH (08:09)
[2023-01-22] MEDS: SENNOSIDES 8.6 MG (SENOKOT) TAB PO SCH (08:09)
[2023-01-22] MEDS: OXYBUTYNIN (DITROPAN) 5 MG TAB PO SCH (08:10)
[2023-01-22] MEDS: SERTRALINE 100 MG (ZOLOFT) TAB PO SCH (08:10)
[2023-01-22] MEDS: PHENAZOPYRIDINE 100 MG (PYRIDIUM) TABLET PO SCH (08:10)
[2023-01-22] MEDS: PANTOPRAZOLE 40 MG (PROTONIX) TAB PO SCH (08:10)
[2023-01-22] MEDS ORDERED: NS IV 500 ML 500 ML IV SCH (08:30)
[2023-01-22] MEDS ORDERED: LOPERAMIDE 2 MG (IMODIUM) TABLET PO PRN (08:30)
[2023-01-22] MEDS ORDERED: KCL 20 MEQ TAB (K-DUR) PO ONE (09:00)
--- NOTE | 2023-01-22 10:01 | Discharge Inst-Simple/Standard ---
Discharge Inst-Standard Discharge Medications New, Converted or Re-Newed RX: Transmitted to Pharmacy Patient Instructions/Follow Up Plan of Care/Instructions/FU: Please continue to take your medications as written. Please follow up with your primary care doctor to follow up this hospital stay. Please keep your appointment with Dr Nguyen for labwork and your normal visit. Activity as Tolerated: Yes Discharge Diet: No Restrictions Return to The Hospital For: Chest pain, dark or bloody stools, shortness of breath, fever, weakness, if you feel you are getting worse. HENOK MORRISON MD Jan 22, 2023 10:01
--- NOTE | 2023-01-22 10:11 | Physical Therapy Evaluation ---
PT Evaluation-General Medical Diagnosis Admission Date Jan 18, 2023 at 18:15 Medical Diagnosis: acute blood loss Onset Date: Jan 18, 2023 Therapy Diagnosis Therapy Diagnosis: debility Height/Weight Height (Feet): 5 Height (Inches): 7.00 Weight (Pounds): 170 Precautions Precautions/Isolations: Fall Prevention, Standard Precautions Referral Physician: Connor Reason for Referral: Evaluation/Treatment Medical History Pertinent Medical History: CAD, COPD, HTN Additional Medical History leukemia Current History ER secondary to weakness and a fall Reviewed History: Yes Social History Current Living Status: Other Family Prior Prior Level of Function SCALE: Activities may be completed with or without assistive devices. 5-Iuswxieffd-ldmzrku completes the activity by him/herself with no assistance from a helper. 5-Set-up or Clean-up Assistance-helper sets up or cleans up; patient completes activity. Brewster assists only prior to or following the activity. 4-Supervision or Touching Assistance-helper provides verbal cues and/or touching/steadying and/or contact guard assistance as patient completes activity. Assistance may be provided throughout the activity or intermittently. 3-Partial/Moderate Assistance-helper does LESS THAN HALF the effort. Brewster lifts, holds or supports trunk or limbs, but provides less than half the effort. 2-Substantial/Maximal Assistance-helper does MORE THAN HALF the effort. Brewster lifts or holds trunk or limbs and provides more than half the effort. 1-Kjgxkjsem-hyldpq does ALL the effort. Patient does none of the effort to comp lete the activity. Or, the assistance of 2 or more helpers is required for the patient to complete the activity. If activity was not attempted, code reason: 7-Patient Refused. 9-Not Applicable-not attempted and the patient did not perform the activity before the current illness, exacerbation or injury. 10-Not Attempted due to Environmental Limitations-(lack of equipment, weather restraints, etc.). 88-Not Attempted due to Medical Conditions or Safety Concerns. Bed Mobility: 6 Transfers (B,C,W/C): 6 Gait: 6 Stairs: 6 Indoor Mobility (Ambulation): Independent Stairs: Independent Prior Devices Use: None per patient report PT Evaluation-Current Subjective Patient agrees to PT. Declined FWW use with noted education of use for safety. Patient continued to decline use. Pain Numeric Pain Scale: 0-No Pain Location: No Pain Reported Objective Patient Orientation: Person, Time, Situation Attachments: Central Line ROM/Strength ROM Lower Extremities bilateral LE WFL Strength Lower Extremities 4-/5 grossly bilateral LE Integumentary/Posture Bowel Incontinence: No Bladder Incontinence: Yes Posture WFL Neuromuscular (Tone, Coordination, Reflexes) grossly intact Sensory Vision: Wears Glasses Hearing: Functional Transfers Lying to Sitting/Side of Bed(Q: 6 Sit to Stand (QC): 6 Chair/Baz-ai-Zazgp Xfer(QC): 6 Gait Mode of Locomotion: Walk Anticipated Mode of Locomotion: Walk Walk 10 feet (QC): 6 Walk 50 ft with 2 Turns(QC): 6 Walk 150 ft (QC): 6 Distance: 250' Gait Assistive Device: None Comments/Gait Description safe and functional with no deviation Balance Sitting Static: Normal Sitting Dynamic: Normal Standing Static: Good Standing Dynamic: Good Assessment/Needs Patient is currently at independent OF with all gross motor skills safely and does not require skilled PT intervention. Rehab Potential: Fair PT Plan Treatment/Plan Treatment Plan: Discontinue PT Treatment Duration: Jan 22, 2023 Frequency: 1 time per week Estimated Hrs Per Day: .25 hour per day Patient and/or Family Agrees t: Yes Safety Risks/Education Patient Education: Safety Issues Teaching Recipient: Patient Teaching Methods: Discussion Response to Teaching: Verbalize Understanding Time Time In: 930 Time Out: 940 DATE: Jan 22, 2023 Total Billed Treatment Time: 10 Total Billed Treatment 1 visit EVModC 10 min ELIS PIERRE PT Jan 22, 2023 10:11
--- NOTE | 2023-01-22 11:01 | Discharge Summary ---
Diagnosis/Chief Complaint Date of Admission Jan 18, 2023 at 18:15 Date of Discharge Discharge Date: Jan 22, 2023 Admission Diagnosis Acute blood loss anemia Primary Care Zaid Mario DO Discharge Diagnosis (1) Acute blood loss anemia Status: Acute (2) Symptomatic anemia Status: Acute (3) GI bleed Status: Acute (4) Myelodysplastic syndrome Status: Acute (5) Thrombocytopenia Status: Acute (6) Generalized weakness Status: Acute Discharge Summary Procedures/Consulations Dr Ortiz Discharge Physical Exam Allergies: Coded Allergies: No Known Drug Allergies (Unverified , 08/28/22) Vitals & I&Os Vital Signs Date Time Temp Pulse Resp B/P (MAP) Pulse Ox O2 Delivery O2 Flow Rate FiO2 01/22/23 14:45 36.9 72 18 151/69 93 Room Air 01/21/23 17:25 6.00 General Appearance: No Apparent Distress, WD/WN Cardiovascular: Regular Rate, Rhythm, No Murmur Gastrointestinal: Normal Bowel Sounds, Soft Neurologic/Psychiatric: Alert, Oriented x3 Hospital Course Patient was admitted to the hospital secondary to acute GI bleed and anemia. She does have a history of myelodysplastic syndrome for which she follows with Dr. Canada. She was transfused 2 units of packed red blood cells and 2 units of platelets total throughout the admission. She underwent EGD and colonoscopy with Dr. ORTIZ. This revealed reflux esophagitis with possible esophageal can didiasis and small hiatal hernia and moderate to severe gastritis. Colonoscopy revealed chronic stage II external and internal hemorrhoids, sigmoid diverticulosis, small HP polyp and colitis in the ascending colon. She also had a urinary tract infection and she was treated with Rocephin. She was able to be discharged home in stable and improved condition to follow up with Dr Mario and Dr Ortiz. She also has an appointment with Dr Nguyen in 2 days. I called and spoke with Dr Nguyen and Dr Mario regarding this hospitalization. Labs (last 24 hrs) Microbiology 01/21/23 Urine Culture - Preliminary, Resulted Citrobacter amalonaticus Citrobacter amalonaticus#2 01/21/23 Fungal Culture 1 - Preliminary, Resulted 01/18/23 Blood Culture - Preliminary, Resulted No growth Patient resulted labs reviewed. Pending Labs Imaging: Reviewed Imaging Report Discussion & Recommendations Discharge Planning: >30 minutes discharge planning Discharge Home Medications: Active Scripts Active Cefdinir 300 Mg Capsule 300 Mg PO BID 5 Days Pantoprazole Sodium 40 Mg Tablet.dr 40 Mg PO BID Reported Multi-Vitamin Daily (Multivitamin) 1 Each Tablet 1 Each PO DAILY Lisinopril 20 Mg Tablet 20 Mg PO DAILY Oxybutynin Chloride ER (Oxybutynin Chloride) 5 Mg Tab.er.24 5 Mg PO HS Klor-Con 10 (Potassium Chloride) 10 Meq Tablet.er 10 Meq PO HS Sertraline HCl 100 Mg Tablet 100 Mg PO HS Ibuprofen 200 Mg Tablet 200 Mg PO Q8H PRN Prednisone 5 Mg Tablet 5 Mg PO DAILY Culturelle (Lactobacillus Rhamnosus GG) 1 Each Capsule 1 Each PO DAILY Docusate Sodium 100 Mg Capsule 100 Mg PO BID PRN Vitamin D3 (Cholecalciferol (Vitamin D3)) 25 Mcg Tablet 25 Mcg PO DAILY Instructions to patient/family Please see electronic discharge instructions given to patient. HENOK MORRISON MD Jan 22, 2023 11:01
[2023-01-22] MEDS: cefTRIAXone 1 GM PRE-MIX 50 ML IV SCH (12:06)
[2023-01-22] MEDS ORDERED: PANT40TA52 PO (12:36)
[2023-01-22] MEDS ORDERED: CEFD300C3 PO (12:36)
[2023-01-22] MEDS ORDERED: LACTOBACILLUS ACIDOPHILUS (PROBIOTIC) CAPSULE PO SCH (13:00)
== END 2023-01-22 14:45 | disposition home or self-care (01) | DRG 392 ==
LOC: EDUNIT# 13:11 → ER 13:13 → 4TH 18:15
PROVIDERS: ADMIT Internal Medicine; ATTEND Family Medicine
PROC: 0DBL8ZX Excision of Transverse Colon, Via Natural or Artificial Opening Endoscopic, Diagnostic (ICD-10-PCS; 2023-01-21)
PROC: 0DBH8ZX Excision of Cecum, Via Natural or Artificial Opening Endoscopic, Diagnostic (ICD-10-PCS; 2023-01-21)
PROC: 0DD48ZX Extraction of Esophagogastric Junction, Via Natural or Artificial Opening Endoscopic, Diagnostic (ICD-10-PCS; 2023-01-21)
PROC: 0DB48ZX Excision of Esophagogastric Junction, Via Natural or Artificial Opening Endoscopic, Diagnostic (ICD-10-PCS; principal; 2023-01-21 15:56)
PROC: 0DB78ZX Excision of Stomach, Pylorus, Via Natural or Artificial Opening Endoscopic, Diagnostic (ICD-10-PCS; 2023-01-21 15:56)
DX: K52.9 Noninfective gastroenteritis and colitis, unspecified (principal); D62 Acute posthemorrhagic anemia; C95.90 Leukemia, unspecified not having achieved remission; N39.0 Urinary tract infection, site not specified; B37.81 Candidal esophagitis; D46.9 Myelodysplastic syndrome, unspecified; D69.6 Thrombocytopenia, unspecified; E86.0 Dehydration; G20 Parkinson's disease; Z20.822 Contact with and (suspected) exposure to COVID-19; J44.9 Chronic obstructive pulmonary disease, unspecified; K21.00 Gastro-esophageal reflux disease with esophagitis, without bleeding; K44.9 Diaphragmatic hernia without obstruction or gangrene; K29.70 Gastritis, unspecified, without bleeding; K64.1 Second degree hemorrhoids; I25.10 Atherosclerotic heart disease of native coronary artery without angina pectoris; E78.00 Pure hypercholesterolemia, unspecified; I10 Essential (primary) hypertension; K57.90 Diverticulosis of intestine, part unspecified, without perforation or abscess without bleeding; F32.A Depression, unspecified; F41.9 Anxiety disorder, unspecified; K21.9 Gastro-esophageal reflux disease without esophagitis; M19.91 Primary osteoarthritis, unspecified site; Z85.828 Personal history of other malignant neoplasm of skin; Z86.16 Personal history of COVID-19; Z79.52 Long term (current) use of systemic steroids; Z79.899 Other long term (current) drug therapy; Z80.0 Family history of malignant neoplasm of digestive organs
CPT/HCPCS: 36415; 70450; 71045; 80048; 80053; 81000; 82274; 83605; 83735; 84484; 85007; 85025; 85027; 85610; 85730; 86850; 86900; 86901; 86920; 87040; 87077; 87081; 87088; 87101; 87186; 87636

== ENCOUNTER 2023-02-14 09:02 | Emergency (ER) | payer MEDICARE ==
[~2023-02-14] VITALS: Ht 170.1 cm; Wt 64.0 kg
[~2023-02-14 09:02] MED LIST changes: +IBUP-2473 PO; +MULT-974 PO; +PANT40TA52 PO; +POTA-160 PO
--- NOTE | 2023-02-14 09:23 | ED General ---
General Chief Complaint: General Problems/Pain Stated Complaint: DEHYDRATED Source of Information: Patient Exam Limitations: No Limitations History of Present Illness Date Seen by Provider: Feb 14, 2023 Time Seen by Provider: 09:22 Initial Comments Patient is a 77-year-old female with a history of leukemia, patient of Dr. Canada, who presents to the emergency room with concerns of feeling dehydrated. She endorses feeling a little lightheaded and dizzy with standing up and moving around. She is generally weak. She is also having some lower abdominal discomfort with dysuria and some mild low back pain. She did take 2 Tylenol last night prior to bed. Patient has been off of her chemotherapy for about 4 weeks. She gets very generally deconditioned with chemotherapy and Dr. Canada reportedly wanted to give her's slight break. She is supposed to be doing physical therapy but about 2 weeks ago developed a urinary tract infection and required antibiotics. She also developed diarrhea on Saturday of this week which has primarily caused the symptoms of feeling dehydrated. No known fevers or chills. She has had GI issues in the past with a bowel perforation several years ago. She was constipated a couple of weeks ago and took some Dulcolax. She occasionally notices spots of blood in her stool. She is not nauseated currently. No URI symptoms, shortness of breath or cough. No sick contacts. Chronically wears depends. Daughter is present in the room and facilitates history. All other review of systems reviewed and negative except as stated. Timing/Duration: 3-4 Days Severity: Moderate Associated Systoms: Malaise, Other (diarrhea) Allergies and Home Medications Allergies Coded Allergies: No Known Drug Allergies (Unverified , 08/28/22) Patient Home Medication List Home Medication List Reviewed: Yes Amoxicillin/Potassium Clav (Augmentin 500-125 Tablet) 500 Mg-125 Mg Tablet, 1 EACH PO BID Prescribed by: BAYLEE ORTIZ on 02/14/23 1218 Cefdinir (Cefdinir) 300 Mg Capsule, 300 MG PO BID Prescribed by: HENOK MORRISON on 01/22/23 1236 Cholecalciferol (Vitamin D3) (Vitamin D3) 25 Mcg Tablet, 25 MCG PO DAILY, (Reported) Entered as Reported by: MARIA EUGENIA LÓPEZ on 03/17/21 1142 Docusate Sodium (Docusate Sodium) 100 Mg Capsule, 100 MG PO BID PRN for CONSTIPATION-1ST LINE, (Reported) Entered as Reported by: MARIA EUGENIA LÓPEZ on 03/17/21 1142 Ibuprofen (Ibuprofen) 200 Mg Tablet, 200 MG PO Q8H PRN for PAIN-MILD (1-4), ( Reported) Entered as Reported by: DAVID GUDINO on 01/21/23 0853 Lactobacillus Rhamnosus GG (Culturelle) 1 Each Capsule, 1 EACH PO DAILY, (Reported) Entered as Reported by: ISADORA SRIVASTAVA on 08/17/21 1119 Lisinopril (Lisinopril) 20 Mg Tablet, 20 MG PO DAILY, (Reported) Entered as Reported by: DAVID GUDINO on 01/21/23 0855 Multivitamin (Multi-Vitamin Daily) 1 Each Tablet, 1 EACH PO DAILY, (Reported) Entered as Reported by: DAVID GUDINO on 01/21/23 0855 Oxybutynin Chloride (Oxybutynin Chloride ER) 5 Mg Tab.er.24, 5 MG PO HS, (Reported) Entered as Reported by: DAVID GUDINO on 01/21/23 0855 Pantoprazole Sodium (Pantoprazole Sodium) 40 Mg Tablet.dr, 40 MG PO BID Prescribed by: HENOK MORRISON on 01/22/23 1236 Potassium Chloride (Klor-Con 10) 10 Meq Tablet.er, 10 MEQ PO HS, (Reported) Entered as Reported by: DAVID GUDINO on 01/21/23 0855 Prednisone (Prednisone) 5 Mg Tablet, 5 MG PO DAILY, (Reported) Entered as Reported by: ISADORA SRIVASTAVA on 08/17/21 1119 Sertraline HCl (Sertraline HCl) 100 Mg Tablet, 100 MG PO HS, (Reported) Entered as Reported by: DAVID GUDINO on 01/21/23 0855 Review of Systems Review of Systems Constitutional: see HPI, malaise EENTM: no symptoms reported Respiratory: no symptoms reported Cardiovascular: no symptoms reported Gastrointestinal: diarrhea Genitourinary: dysuria Musculoskeletal: back pain (low back discomfort) Skin: no symptoms reported Psychiatric/Neurological: No Symptoms Reported Past Xdcmjvy-Sfvqow-Muuuvz Hx Immunizations Up To Date First/Initial COVID19 Vaccinat: 2020 Second COVID19 Vaccination Mesfin: 2020 Third COVID19 Vaccination Date: OCT 2021 Seasonal Allergies Seasonal Allergies: No Past Medical History Surgery/Hospitalization HX: ANTERIOR/POSTERIOR REPAIR, WITH WOUND DEHISCENCE WITH I&D AND REVISION OFA/P REPAIR, BILATERAL CATARACT SURGERY 12/2019COLONOSCOPIES, BONE MARROW BIOPSY 2019 port placement, leukemia Surgeries: Yes Adenoidectomy, Bladder Surgery, Eye Surgery, Gallbladder, Hysterectomy, Tonsillectomy Respiratory: Yes COPD Currently Using CPAP: No Currently Using BIPAP: No Cardiac: Yes Coronary Artery Disease, High Cholesterol, Hypertension Neurological: No [employer] History: Hysterectomy Genitourinary: Yes (BLADDER PROLAPSE--S/P A/P REPAIR WITH REVISION) UTI-Chronic Gastrointestinal: Yes Diverticulosis Musculoskeletal: Yes (CHRONIC GENERALIZED PAIN ) Arthritis Endocrine: No HEENT: Yes (BILAT CATARACT SURGERY 12/2019) Cataract Cancer: Yes (LEUKEMIA (CURRENTLY)) Leukemia, Skin Did You Recieve Any Treatments: Yes What Type of Treatment Did You: Surgical Intervention Psychosocial: Yes Depression Integumentary: Yes Eczema Blood Disorders: Yes (LEUKEMIA) Adverse Reaction/Blood Tranf: Yes (HAS HAD BLOOD WITH NO REACTIONS) Family Medical History Heart Disease, Cancer, Stroke Noncontributory Physical Exam Vital Signs Vital Signs - First Documented 02/14/23 09:20 Temp 37.2 Pulse 91 Resp 20 B/P (MAP) 149/75 (99) Pulse Ox 95 O2 Delivery Room Air Capillary Refill : Height, Weight, BMI Height: 5'7.00" Weight: 170lbs. oz. 77.106973nt; 21.63 BMI Method:Stated General Appearance: No Apparent Distress, WD/WN, Thin Eyes: Bilateral Eye Normal Inspection, Bilateral Eye PERRL, Bilateral Eye EOMI HEENT: Other (slightly dry oral mucosa) Neck: Normal Inspection Respiratory: Lungs Clear, Normal Breath Sounds, No Accessory Muscle Use, No Respiratory Distress Cardiovascular: Regular Rate, Rhythm, Normal Peripheral Pulses Gastrointestinal: Soft, Tenderness (mild suprapubic tenderness to palpation) Extremity: Normal Inspection, No Pedal Edema Neurologic/Psychiatric: Alert, Oriented x3, No Motor/Sensory Deficits, Normal Mood/Affect Skin: Warm/Dry, Pallor Progress/Results/Core Measures Suspected Sepsis SIRS Temperature: Pulse: Respiratory Rate: Laboratory Tests 02/14/23 09:20: White Blood Count 7.2 Blood Pressure / Mean: Laboratory Tests 02/14/23 09:20: Creatinine 0.79, Platelet Count 27*L Results/Orders Lab Results Laboratory Tests Test 02/14/23 09:20 02/14/23 11:48 Range/Units White Blood Count 7.2 4.3-11.0 10^3/uL Red Blood Count 3.24 L 3.80-5.11 10^6/uL Hemoglobin 8.0 L 11.5-16.0 g/dL Hematocrit 26 L 35-52 % Mean Corpuscular Volume 81 80-99 fL Mean Corpuscular Hemoglobin 25 25-34 pg Mean Corpuscular Hemoglobin Concent 31 L 32-36 g/dL Red Cell Distribution Width 18.6 H 10.0-14.5 % Platelet Count 27 *L 130-400 10^3/uL Mean Platelet Volume 10.1 9.0-12.2 fL Immature Granulocyte % (Auto) 5 % Neutrophils (%) (Auto) 42 42-75 % Lymphocytes (%) (Auto) 14 12-44 % Monocytes (%) (Auto) 39 H 0-12 % Eosinophils (%) (Auto) 0 0-10 % Basophils (%) (Auto) 0 0-10 % Neutrophils # (Auto) 3.1 1.8-7.8 10^3/uL Lymphocytes # (Auto) 1.0 1.0-4.0 10^3/uL Monocytes # (Auto) 2.8 H 0.0-1.0 10^3/uL Eosinophils # (Auto) 0.0 0.0-0.3 10^3/uL Basophils # (Auto) 0.0 0.0-0.1 10^3/uL Immature Granulocyte # (Auto) 0.4 H 0.0-0.1 10^3/uL Neutrophils % (Manual) 52 % Lymphocytes % (Manual) 14 % Monocytes % (Manual) 32 % Reactive Lymphocytes 2 % Percent Immature Platelet Fraction 1.8 0.0-7.6 % Anisocytosis MODERATE Microcytosis SLIGHT Schistocytes SLIGHT Sodium Level 137 135-145 MMOL/L Potassium Level 3.2 L 3.6-5.0 MMOL/L Chloride Level 101 98-107 MMOL/L Carbon Dioxide Level 18 L 21-32 MMOL/L Anion Gap 18 H 5-14 MMOL/L Blood Urea Nitrogen 12 7-18 MG/DL Creatinine 0.79 0.60-1.30 MG/DL Estimat Glomerular Filtration Rate 76 BUN/Creatinine Ratio 15 Glucose Level 71 70-105 MG/DL Calcium Level 9.4 8.5-10.1 MG/DL Urine Color YELLOW Urine Clarity CLOUDY Urine pH 6.0 5-9 Urine Specific [place] >=1.030 1.016-1.022 Urine Protein 2+ H NEGATIVE Urine Glucose (UA) NEGATIVE NEGATIVE Urine Ketones TRACE H NEGATIVE Urine Nitrite NEGATIVE NEGATIVE Urine Bilirubin NEGATIVE NEGATIVE Urine Urobilinogen 1.0 < = 1.0 MG/DL Urine Leukocyte Esterase 1+ H NEGATIVE Urine RBC (Auto) 3+ H NEGATIVE Urine RBC 25-50 H /HPF Urine WBC 25-50 H /HPF Urine Squamous Epithelial Cells 5-10 /HPF Urine Crystals NONE /LPF Urine Bacteria MODERATE H /HPF Urine Casts NONE /LPF Urine Mucus NEGATIVE /LPF Urine Culture Indicated YES My Orders Orders - BAYLEE ORTIZ MD Ed Iv/Invasive Line Start (02/14/23 09:36) Cbc With Automated Diff (02/14/23 09:36) Basic Metabolic Panel (02/14/23 09:36) Ua Culture If Indicated (02/14/23 09:36) Acetaminophen Tablet (Tylenol Tablet) (02/14/23 09:45) Ns Iv 1000 Ml (Sodium Chloride 0.9%) (02/14/23 09:36) Manual Differential (02/14/23 09:20) Ns Iv 500 Ml (Sodium Chloride 0.9%) (02/14/23 11:22) Urine Culture (02/14/23 11:48) Ceftriaxone Iv/Im (Rocephin Iv/Im) (02/14/23 12:30) Medications Given in ED Vital Signs/I&O 02/14/23 02/14/23 02/14/23 09:20 10:18 13:55 Temp 37.2 37.2 Pulse 91 86 Resp 20 14 B/P (MAP) 149/75 (99) 138/65 Pulse Ox 95 95 O2 Delivery Room Air Room Air Capillary Refill : Progress Note : Time: 13:34 Progress Note Patient seen and examined by me. Evaluation today includes physical exam, CBC, Chem-12, urinalysis. Pertinent physical exam findings well-developed well- nourished thin 77-year-old female, no acute distress. Dry oral mucosa. Stable vital signs. Heart is regular, lungs are clear. Abdomen is soft with mild suprapubic tenderness. No lower extremity edema. No rashes joint pain or swelling. No focal neurologic deficits. Differential diagnosis based on history and physical exam, dehydration, urinary tract infection, anemia Labs reviewed and interpreted by me. CBC shows a white blood cell count of 7.2 hemoglobin of 8, hematocrit of 26. Thrombocytopenia known to the patient currently 27. Patient's differential reveals 39% monos. Chemistry reviewed, mildly low potassium at 3.2. CO2 of 18. BUN and creatinine are within normal limits at 12 and 0.79. Blood sugar of 76. Clean-catch urinalysis reveals 25-50 red blood cells and white blood cells with 5-10 epithelial cells. Moderate bacteria, trace ketones nitrite negative and 1+ LE. Patient is treated with approximately 1500 cc of normal saline. For urinary tract infection treated with Rocephin 1 g IV. She feels much better after IV fluids. She has no clinical or objective findings warranting inpatient admission today. She has stable thrombocytopenia. Stable anemia. Was moderately dehydrated on exam corrected with IV fluids. Has follow-up scheduled with her oncologist next week on Saturday. Will be placed on a course of antibiotics outpatient for her urinary tract infection. She is comfortable with plan of care. All questions are sought and answered. Patient is stable for discharge. Departure Impression Primary Impression: Urinary tract infection Qualified Codes: N39.0 - Urinary tract infection, site not specified; R31.9 - Hematuria, unspecified Additional Impression: Dehydration Disposition: 01 HOME, SELF-CARE Condition: Stable Departure-Patient Inst. Decision time for Depature: 13:33 Referrals: TIFFANI MARTINEZ DO (PCP/Family) Primary Care Physician Patient Instructions: Urinary Tract Infection, Adult (DC), Dehydration, Adult (DC) Add. Discharge Instructions: Start the antibiotic prescription tomorrow. You will take it twice a day for 7 days. Remember to change your Depends frequently so that you are not sitting in a wet one. Try and push fluids so that you stay well-hydrated. If you develop a fever or any other worsening, concerning symptoms please return to the emergency room for reevaluation. Please follow-up with your primary care provider next week. Scripts Amoxicillin/Potassium Clav (Augmentin 500-125 Tablet) 500 Mg-125 Mg Tablet 1 EACH PO BID, #14 TAB Prov: BAYLEE ORTIZ MD 02/14/23 Copy Copies To 1: JOSE ALBERTO LORA Copies To 2: TIFFANI MARTINEZ KATHRYN M MD Feb 14, 2023 09:23
[2023-02-14] MEDS ORDERED: NS IV 1000 ML 1,000 ML IV STA (09:36)
[2023-02-14] MEDS ORDERED: ACETAMINOPHEN 500 MG TAB (TYLENOL) PO ONE (09:45)
[2023-02-14 09:46] LABS: BASOPHILS % (AUTO) 0 % (0-10); EOSINOPHILS % (AUTO) 0 % (0-10); HEMATOCRIT 26 % (35-52); LYMPHOCYTES % (AUTO) 14 % (12-44); MEAN CORPUSCULAR HEMOGLOBIN 25 pg (25-34); MEAN CORPUSCULAR HGB CONC 31 g/dL (32-36); MEAN CORPUSCULAR VOLUME 81 fL (80-99); MEAN PLATELET VOLUME 10.1 fL (9.0-12.2); MONOCYTES # (AUTO) 2.8 10^3/uL (0.0-1.0); MONOCYTES % (AUTO) 39 % (0-12); NEUTROPHILS # (AUTO) 3.1 10^3/uL (1.8-7.8); NEUTROPHILS % (AUTO) 42 % (42-75); WHITE BLOOD COUNT 7.2 10^3/uL (4.3-11.0)
[2023-02-14 09:48] LABS: PLATELET COUNT 27 10^3/uL (130-400)
[2023-02-14 09:49] LABS: POTASSIUM 3.2 MMOL/L (3.6-5.0)
[2023-02-14 09:50] LABS: CALCIUM 9.4 MG/DL (8.5-10.1)
[2023-02-14 09:54] LABS: CREATININE SERUM 0.79 MG/DL (0.60-1.30)
[2023-02-14 10:01] LABS: ANISOCYTOSIS MODERATE; LYMPHOCYTES % (MANUAL) 14 %; MICROCYTOSIS SLIGHT; MONOCYTES % (MANUAL) 32 %; NEUTROPHILS % (MANUAL) 52 %; REACTIVE LYMPHOCYTES 2 %; SCHISTOCYTES SLIGHT
[2023-02-14] MEDS ORDERED: NS IV 500 ML 500 ML IV STA (11:22)
[2023-02-14 11:55] LABS: CLARITY,URINE CLOUDY; COLOR,URINE YELLOW; GLUCOSE, URINE (UA) NEGATIVE (NEGATIVE); KETONES,URINE TRACE (NEGATIVE); LEUKOCYTE ESTERASE ,URINE 1+ (NEGATIVE); NITRITE,URINE NEGATIVE (NEGATIVE); PROTEIN,URINE 2+ (NEGATIVE)
[2023-02-14 12:14] LABS: BILIRUBIN,URINE NEGATIVE (NEGATIVE)
[2023-02-14 12:15] LABS: BACTERIA,URINE MODERATE /HPF; RBC,URINE 25-50 /HPF; WBC,URINE 25-50 /HPF
[2023-02-14] MEDS ORDERED: AMOX-355 PO (12:18)
[2023-02-14] MEDS ORDERED: cefTRIAXone IV/IM 1,000 MG in NS (IVPB) 50 ML IV ONE (12:30)
[2023-02-14 13:55] VITALS: BP 138/65
[2023-02-18] MEDS ORDERED: PANT40TA52 PO (13:25)
[2023-02-18] MEDS ORDERED: AMOX1TAB11 PO (13:25)
== END 2023-02-14 13:55 | disposition home or self-care (01) ==
LOC: EDUNIT# 09:02 → ER 09:04
DX: N39.0 Urinary tract infection, site not specified (principal); E86.0 Dehydration; D69.6 Thrombocytopenia, unspecified; D64.9 Anemia, unspecified; E87.6 Hypokalemia; C95.90 Leukemia, unspecified not having achieved remission
CPT/HCPCS: 36415; 80048; 81000; 85007; 85027; 87088; 96361; 96365